=== PATIENT | male | born 1955 | race Caucasian/White ===

== ENCOUNTER 2016-04-29 13:02 | Observation (INO) | payer MEDICARE, OTHER ==
[~2016-04-29] VITALS: Ht 162.6 cm; Wt 90.6 kg
[~2016-04-29 13:02] MED LIST: ASPI-535 PO; ATOR40TA68 PO; INSU100C SC; INSU100I15 SC; ISOS60TA52 PO; LORA0.5T PO; METO-53 PO; NITR0.4T6 SL; OMEP20CA9 PO
[2016-04-29] MEDS ORDERED: ASPIRIN 325 MG TAB PO ONE (13:30)
[2016-04-29] MEDS ORDERED: NITROGLYCERIN 2% 1 GM OINT PKT TD STA (13:36)
[2016-04-29] MEDS ORDERED: morphine 4 MG/ML VIAL IV STA ×2 (13:36→15:30)
[2016-04-29] MEDS ORDERED: ASPIRIN 325 MG TAB PO STA (13:36)
[2016-04-29] MEDS ORDERED: ONDANSETRON 4 MG INJ IV STA ×2 (13:36→15:30)
[2016-04-29 13:55] LABS: BASOPHILS % 0.4 % (0.0-2.0); EOSINOPHILS # 0.2 10^3/ul (0.0-0.5); EOSINOPHILS % 2.6 % (0.0-7.0); HEMATOCRIT 43.8 % (42.0-52.0); HEMOGLOBIN 14.9 g/dl (14.0-18.0); LYMPHOCYTES # 2.1 10^3/ul (0.8-2.9); LYMPHOCYTES % 23.7 % (15.0-51.0); MEAN CORPUSCULAR HEMOGLOBIN 28.2 pg (29.0-33.0); MEAN CORPUSCULAR VOLUME 83.1 fl (82.0-101.0); MEAN PLATELET VOLUME 8.6 fl (7.4-10.4); MONOCYTE # 0.8 10^3/ul (0.3-0.9); MONOCYTES % 9.2 % (0.0-11.0); NEUTROPHIL # 5.6 10^3/ul (1.6-7.5); NEUTROPHILS % 64.1 % (39.0-77.0); PLATELET COUNT 238 10^3/UL (140-440); RED BLOOD COUNT 5.27 10^6/ul (4.70-6.10); RED CELL DISTRIBUTION WIDTH 13.5 % (11.5-14.5); UNCORRECTED WBC 8.7 10^3/ul (4.8-10.8); WHITE BLOOD COUNT 8.7 10^3/ul (4.8-10.8)
[2016-04-29 13:58] LABS: CONDITION 1
[2016-04-29 14:00] VITALS: TEMP 98.2
[2016-04-29 14:00] LABS: ALBUMIN 3.7 g/dl (3.3-4.9)
[2016-04-29 14:01] LABS: CHLORIDE 101 mmol/L (97-110); POTASSIUM 5.5 mmol/L (3.5-5.1); SODIUM 137 mmol/L (135-144)
[2016-04-29 14:03] LABS: ALBUMIN/GLOBULIN RATIO 1.02; ALKALINE PHOSPHATASE 150 IU/L (42-121); ANION GAP 20 (8-16); ASPARTATE AMINO TRANSFERASE 21 IU/L (15-46); BLOOD UREA NITROGEN 41 mg/dl (7-20); CARBON DIOXIDE 22 mmol/L (21-31); CREATININE 2.69 mg/dl (0.61-1.24); TOTAL PROTEIN 7.3 g/dl (6.1-8.1)
[2016-04-29 14:04] LABS: ALANINE AMINOTRANSFERASE 34 IU/L (13-69); CALCIUM 8.4 mg/dl (8.4-10.2); GLUCOSE 241 mg/dl (70-220)
[2016-04-29 14:13] LABS: B-TYPE NATRIURETIC PEPTIDE 354 PG/ML (0-125)
[2016-04-29] MEDS ORDERED: DYAZIDE PO (14:13)
[2016-04-29] MEDS ORDERED: BENA10TA48 PO (14:13)
[2016-04-29] MEDS ORDERED: CLON0.2T5 PO (14:14)
[2016-04-29] MEDS ORDERED: LINA5TAB PO (14:15)
[2016-04-29] MEDS ORDERED: GLIM4TAB PO (14:15)
[2016-04-29 14:16] LABS: TROPONIN-I < 0.012 ng/ml (0.00-0.12)
[2016-04-29] MEDS ORDERED: INSU300I SQ (14:16)
--- NOTE | 2016-04-29 14:20 | RADRPT ---
PROCEDURE: Chest x-ray CLINICAL INDICATION: Abdominal pain TECHNIQUE: Chest single view COMPARISON: 03/20/2014 FINDINGS: The heart is normal in size. The pulmonary vessels are normal in caliber. The lungs are clear. Th e costophrenic angles are sharp. The visualized bony thorax is unremarkable. IMPRESSION: No acute cardiopulmonary disease. Post thoracotomy changes RPTAT: HH .Shelton Ma MD, Date Time Electronically viewed and signed by .Shelton Ma MD, on 04/29/2016 14:19 .W/
[2016-04-29] MEDS ORDERED: SOD CHLORIDE 0.9% 500 ML IV STA (14:59)
--- NOTE | 2016-04-29 15:24 | ERA ---
ER Documentation Chief Complaint Date/Time DATE: 04/29/16 TIME: 15:21 Chief Complaint chest pain since last night and headache with nausea and vomiting. HPI 60-year-old male history of three-vessel cardiac disease who presents with chest pain. He describes chest pain that is substernal, pressure-like with associated nausea, single episode of vomiting. Mild, gradual onset headache. This is his anginal equivalent. 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 No fevers chills cough or pleuritic pain. ROS All systems reviewed and are negative except as per history of present illness. Medications Home Meds Active Scripts Nitroglycerin* (Nitroglycerin* SL) 0.4 Mg Tab.subl, 0.4 MG SL Q5MIN Y for CHEST PAIN, #30 BOTTLE Prov:EVELYNCEE BANDAROTHTATE Vidales 03/22/14 Reported Medications Insulin Glargine,Hum.rec.anlog (Shea Solostar) 300 Unit/1 Ml Insuln.pen, 80 UNIT SQ BID 04/29/16 Linagliptin (TRADJENTA) 5 Mg Tablet, 5 MG PO DAILY, TAB 04/29/16 Glimepiride* (Glimepiride*) 4 Mg Tablet, 4 MG PO WITH BREAKFAST DINNE, TAB 04/29/16 Clonidine Hcl* (Clonidine Hcl*) 0.2 Mg Tablet, 0.2 MG PO Q8 Y for ELEVATED BLOOD PRESSURE, TAB 04/29/16 Triamterene-HCTZ (Dyazide) 37.5 - 25 Mg Cap, 1 CAP PO DAILY, CAP 04/29/16 Benazepril Hcl* (Benazepril Hcl*) 10 Mg Tablet, 10 MG PO DAILY, #30 TAB 04/29/16 Omeprazole* (Prilosec*) 20 Mg Capsule.dr, 20 MG PO DAILY, CAP 03/20/14 Lorazepam* (Lorazepam*) 0.5 Mg Tablet, 0.5-1 MG PO QID Y for ANXIETY, TAB 03/20/14 Atorvastatin* (Atorvastatin*) 40 Mg Tablet, 40 MG PO DAILY 06/10/13 Aspirin Ec (Aspir 81) 81 Mg Tablet.dr, 81 MG PO DAILY 06/10/13 Metoprolol (Lopressor) 50 Mg Tablet, 50 MG PO BID 06/10/13 Isosorbide Mononitrate* (Imdur*) 60 Mg Tab.sr.24h, 60 MG PO DAILY 06/10/13 Discontinued Scripts Insulin Lispro (Humalog) 100 U/Ml Cartridge, 6 UNITS SC WITH MEALS for 30 Days, EA Prov:GONZALEZ PEÑA F. 03/22/14 Insulin Glargine,Hum.rec.anlog (Lantus Solostar) 100 Units/Ml Pen, 25 UNITS SC HS for 14 Days Prov:GONZALEZ PEÑA F. 03/22/14 Allergies Allergies: Coded Allergies: No Known Allergy (Unverified , 04/29/16) PMhx/Soc History of Surgery: Yes (CABG 2012, appendectomy) Anesthesia Reaction: No Hx Neurological Disorder: No Hx Respiratory Disorders: No Hx Cardiac Disorders: Yes (HTN,CAD,HLP) Hx Psychiatric Problems: No Hx Miscellaneous Medical Probl: No Hx Alcohol Use: No Hx Substance Use: No Hx Tobacco Use: No Smoking Status: Never smoker Physical Exam Vitals Vital Signs Date Time Temp Pulse Resp B/P Pulse Ox O2 Delivery O2 Flow Rate FiO2 04/29/16 13:07 98.9 74 20 133/79 98 Physical Exam General: Well developed, well nourished, no acute distress Head: Normocephalic, atraumatic. Eyes: Pupils equally reactive, EOM intact ENT: Moist mucous membranes Neck: Supple, no lymphadenopathy Respiratory: Lungs clear bilaterally, no distress Cardiovascular: RRR, no murmurs, rubs, or gallops Abdominal: Soft, non-tender, non-distended, no peritoneal signs : Deferred MSK: No edema, no unilateral swelling, 5/5 strength Neurologic: Alert and oriented, moving all extremities, normal speech, no focal weakness, no cerebellar signs Skin: No rash Psych: Normal mood Result Diagram: 04/29/16 1340 04/29/16 1340 Results 24 hrs Laboratory Tests Test 04/29/16 13:40 Alanine Aminotransferase (ALT/SGPT) 34IU/L Albumin 3.7g/dl Albumin/Globulin Ratio 1.02 Alkaline Phosphatase 150IU/L Anion Gap 20 Aspartate Amino Transf (AST/SGOT) 21IU/L B-Type Natriuretic Peptide 354PG/ML Basophils # 0.010^3/ul Basophils % 0.4% Blood Morphology Comment Blood Urea Nitrogen 41mg/dl Calcium Level 8.4mg/dl Carbon Dioxide Level 22mmol/L Chloride Level 101mmol/L Creatinine 2.69mg/dl Direct Bilirubin 0.00mg/dl Eosinophils # 0.210^3/ul Eosinophils % 2.6% Globulin 3.60g/dl Glucose Level 241mg/dl Hematocrit 43.8% Hemoglobin 14.9g/dl Indirect Bilirubin 0.0mg/dl Lipase 253U/L Lymphocytes # 2.110^3/ul Lymphocytes % 23.7% Mean Corpuscular Hemoglobin 28.2pg Mean Corpuscular Hemoglobin Concent 34.0g/dl Mean Corpuscular Volume 83.1fl Mean Platelet Volume 8.6fl Monocytes # 0.810^3/ul Monocytes % 9.2% Neutrophils # 5.610^3/ul Neutrophils % 64.1% Nucleated Red Blood Cells # 0.010^3/ul Nucleated Red Blood Cells % 0.0/100WBC Platelet Count 59438^3/UL Potassium Level 5.5mmol/L Red Blood Count 5.2710^6/ul Red Cell Distribution Width 13.5% Sodium Level 137mmol/L Total Bilirubin 0.0mg/dl Total Protein 7.3g/dl Troponin I < 0.012ng/ml White Blood Count 8.710^3/ul Current Medications Medications (Trade) Dose Ordered Sig/Omid Route PRN Reason Start Time Stop Time Status Last Admin Dose Admin Aspirin (Aspirin) 325 mg ONCE ONCE PO 04/29/16 13:30 04/29/16 13:31 DC 04/29/16 13:46 Aspirin (Aspirin) 325 mg ONCE STAT PO 04/29/16 13:36 04/29/16 13:37 DC Nitroglycerin (Nitroglycerin 2% Oint) 1 inch ONCE STAT TD 04/29/16 13:36 04/29/16 13:37 DC 04/29/16 13:45 Morphine Sulfate (morphine) 4 mg ONCE STAT IV 04/29/16 13:36 04/29/16 13:37 DC 04/29/16 13:46 Ondansetron HCl 4 mg 4 mg ONCE STAT IV 04/29/16 13:36 04/29/16 13:37 DC 04/29/16 13:45 Sodium Chloride (NS) 500 ml @ 500 mls/hr Q1H STAT IV 04/29/16 14:59 04/29/16 15:58 Ondansetron HCl (Zofran Inj) 4 mg ER BRIDGE PRN IV NAUSEA AND/OR VOMITING 04/29/16 15:30 04/30/16 15:29 Acetaminophen (Tylenol Tab) 650 mg ER BRIDGE PRN PO MILD PAIN/FEVER 04/29/16 15:30 04/30/16 15:29 Procedures/MDM EKG, MONITORS, & DIAGNOSTIC IMAGING: EKG: I reviewed and interpreted a 12-lead EKG. Rhythm: Normal sinus rhythm Ectopy: None Intervals: No abnormalities ST segments: No elevations or depressions T waves: No contiguous inversions Repeat EKG: EKG: I reviewed and interpreted a 12-lead EKG. Rhythm: Normal sinus rhythm Ectopy: None Intervals: No abnormalities ST segments: No elevations or depressions T waves: No contiguous inversions Chest x-ray: I reviewed and interpreted a 1 view of the chest Mediastinum: No enlargement Cardiac silhouette: No cardiomegaly Airspace: Clear lung godinez bilaterally without evidence of pneumothorax Bones: No evidence of fracture LAB INTERPRETATION: Negative troponin, chronic renal insufficiency, borderline hyperkalemia MEDICAL DECISION MAKING: The patient's history, physical exam and clinical presentation is concerning for possible cardiogenic etiology and acute coronary syndrome. Based on the patient's clinical exam and history and risk factors, I have a much lower clinical concern for pulmonary embolism, acute aortic dissection, pneumothorax, pneumonia, cardiac tamponade HEART Score: 5 MACE Rate: 16.6% Shared Decision Making: We had a conversation regarding risk stratification, MACE rate, and the risks, benefits, alternatives of disposition planning options. Disposition planning: Given high risk profile inpatient hospitalization appropriate ER COURSE: Aspirin, nitro, morphine provided, patient now chest pain-free. Renal function is consistent with baseline. Potassium is only minimally elevated with no EKG changes. No indication for treatment. Fluids have been provided. The patient has subjective improvement. I kept the patient and/or family informed of laboratory and diagnostic imaging results throughout the emergency room course. DISPOSITION PLAN: Telemetry admission for rule out of a possible acute coronary syndrome. CONSULTATION: Accepting care team and consultations: I discussed the current laboratory data, diagnostic imaging and emergency care provided. Admitting team: Dr. Mcdonough Admitting team indication: Insurance directed Departure Diagnosis: Primary Impression: Chronic renal insufficiency Qualified Code: N18.9 - Chronic renal insufficiency, unspecified stage Additional Impression: Chest pain Qualified Code: R07.9 - Chest pain, unspecified type Condition: Stable LORENA ALEXANDRA MD Apr 29, 2016 15:24
[2016-04-29] MEDS ORDERED: ONDANSETRON 4 MG INJ IV PRN ×2 (15:30→18:30)
[2016-04-29] MEDS ORDERED: ACETAMINOPHEN 325 MG TAB PO PRN (15:30)
[2016-04-29] MEDS ORDERED: LABETALOL HCL 20MG INJ IV ONE (18:00)
[2016-04-29 18:23] VITALS: BP 175/93; PULSE 77; RESP 20
[2016-04-29 18:27] VITALS: Ht 162.6 cm; Wt 90.6 kg
[2016-04-29] MEDS ORDERED: ZOLPIDEM 5 MG TAB PO PRN (18:30)
[2016-04-29] MEDS ORDERED: NITROGLYCERIN (SL) 0.4 MG TAB SL PRN ×2 (18:30)
[2016-04-29] MEDS ORDERED: LORAZEPAM 0.5 MG TAB PO PRN (18:30)
[2016-04-29] MEDS ORDERED: NACL 0.9% 3 ML SYG IV SCH (18:30)
[2016-04-29] MEDS: morphine 2 MG INJ IV PRN (18:48)
[2016-04-29 18:50] VITALS: PULSE 74
[2016-04-29 18:57] VITALS: BP 157/82
[2016-04-29] MEDS ORDERED: GLUCOSE GEL 15 GRAM TUBE PO PRN ×2 (19:00)
[2016-04-29] MEDS ORDERED: GLUCAGON 1 MG INJ IM PRN (19:00)
[2016-04-29] MEDS ORDERED: DEXTROSE 50% 50 ML SYRINGE IV PRN ×2 (19:00)
[2016-04-29] MEDS ORDERED: GLUCOSE GEL 15 GRAM TUBE BUCCAL PRN (19:00)
--- NOTE | 2016-04-29 19:11 | HP ---
DATE OF ADMISSION: 04/29/2016 CHIEF COMPLAINT: Chest pain. HISTORY OF PRESENT ILLNESS: The patient is a 60-year-old male with a history of CKD stage III with a baseline GFR around 30. The patient has history of diabetes, hypertension, coronary artery diseas e, status post coronary artery bypass graft as well as a recent elective cardiac catheterization in 01/2016. At that time, patient had a catheterization that showed coronary artery disease. Recommen dation was for aggressive medical management. The patient at this time presents with chest pain ebony cribed as pressure-like pain that began last night. He also has a headache with some nausea and vom iting. The patient denies any shortness of breath. The patient has no other complaints except for the pressure-like chest pain, which he still has at this time. PAST MEDICAL HISTORY: As pre HPI. PAST SURGICAL HISTORY: CABG. HOME MEDICATIONS: 1. Nitroglycerin. 2. Tradjenta. 3. Glimepiride. 4. Clonidine. 5. Dyazide. 6. Benazepril. 7. Omeprazole. 8. Lorazepam. 9. Atorvastatin. 10. Aspirin. 11. Metoprolol. 12. Imdur. FAMILY HISTORY: Significant for cardiac disease in the family. SOCIAL HISTORY: No further smoking, history of smoking. Denies alcohol abuse. Denies drug abuse. REVIEW OF SYSTEMS: A 12-point review of systems negative except for that discussed in HPI. PHYSICAL EXAMINATION: VITAL SIGNS: Temperature is 98.2, pulse ____, respiratory rate 20, blood pressure is 178/100, satur ation 100% on room air. GENERAL: Mild distress. Alert and oriented. HEENT: Normocephalic, atraumatic. LUNGS: Clear to auscultation. CARDIOVASCULAR: Regular rate and rhythm. ABDOMEN: Nondistended, nontender, soft. EXTREMITIES: No clubbing, cyanosis, or edema. LABORATORIES: CBC within normal limits. Chemistry: Sodium is 137, potassium is 5.5, creatinine is 2.69, glucose 241. Troponin is negative. DIAGNOSTICS: Chest x-ray shows no acute disease. EKG shows no signs of ischemia. ASSESSMENT AND PLAN: 1. Chest pain. The patient does have pressure-like pain. We will rule out acute coronary syndrome . The patient did have a recent left heart catheterization approximately [address] Crescencio miller. We will reconsult Dr. Huber. We will continue cardiac meds including nitroglycerin. 2. Chronic kidney disease. Will consult Dr. Solis, nephrology. 3. Diabetes. Continue subcutaneous insulin. Will check A1c. 4. Hypertensive urgency. Continue blood pressure medications with labetalol p.r.n. 5. History of coronary artery disease, status post coronary artery bypass graft. Once again, ante nue cardiac medications. 6. Prophylaxis. Heparin. Dictated By: ALEX CASTRO MD BS/NTS Conf#: [id number] DID#: [id number]
[2016-04-29 20:14] VITALS: PULSE 80
[2016-04-29] MEDS ORDERED: INSULIN GLARGINE HUM REC ANLOG 80 UNIT SQ SCH (21:00)
[2016-04-29] MEDS: INSULIN ASPART [NOVOLOG] 3 ML PEN SC SCH (21:00)
[2016-04-29] MEDS ORDERED: [UNRECOGNIZED DRUG - OTHER] SQ SCH (21:00)
[2016-04-29] MEDS ORDERED: INSULIN GLARGINE [LANtus] 3 ML PEN SC SCH (21:00)
[2016-04-29] MEDS: METOPROLOL 50 MG TAB PO SCH (22:10)
[2016-04-29] MEDS: HEPARIN 5,000 UNIT/0.5 ML SYG SC SCH (22:11)
[2016-04-30] VITALS (14 sets, daily range): BP systolic 152–193; BP diastolic 70–93; PULSE 73–88; RESP 18–20
[2016-04-30] MEDS: ACCUCHECK XX SCH (00:27)
[2016-04-30] MEDS: morphine 4 MG/ML VIAL IV PRN (01:28)
[2016-04-30] MEDS ORDERED: ACCUCHECK XX SCH (02:00)
[2016-04-30] MEDS: LABETALOL HCL 20MG INJ IV PRN ×3 (02:16→11:20)
[2016-04-30] MEDS: PANTOPRAZOLE (EC) 40 MG TAB PO SCH (06:30)
[2016-04-30] MEDS ORDERED: GLIMEPIRIDE 4 MG TAB PO SCH (08:00)
[2016-04-30 08:28] LABS: BASOPHILS % 0.5 % (0.0-2.0); EOSINOPHILS # 0.1 10^3/ul (0.0-0.5); HEMATOCRIT 42.5 % (42.0-52.0); HEMOGLOBIN 14.2 g/dl (14.0-18.0); LYMPHOCYTES # 1.4 10^3/ul (0.8-2.9); LYMPHOCYTES % 20.3 % (15.0-51.0); MEAN CORPUSCULAR HEMOGLOBIN 27.9 pg (29.0-33.0); MEAN CORPUSCULAR HGB CONC 33.5 g/dl (32.0-37.0); MEAN CORPUSCULAR VOLUME 83.4 fl (82.0-101.0); MEAN PLATELET VOLUME 8.5 fl (7.4-10.4); MONOCYTE # 0.5 10^3/ul (0.3-0.9); MONOCYTES % 7.3 % (0.0-11.0); NEUTROPHIL # 4.9 10^3/ul (1.6-7.5); NEUTROPHILS % 70.9 % (39.0-77.0); PLATELET COUNT 206 10^3/UL (140-440); RED BLOOD COUNT 5.09 10^6/ul (4.70-6.10); RED CELL DISTRIBUTION WIDTH 13.7 % (11.5-14.5); UNCORRECTED WBC 6.9 10^3/ul (4.8-10.8); WHITE BLOOD COUNT 6.9 10^3/ul (4.8-10.8)
[2016-04-30 08:32] LABS: CONDITION 1
[2016-04-30 08:48] LABS: POTASSIUM 5.2 mmol/L (3.5-5.1)
[2016-04-30 08:50] LABS: CREATININE 2.25 mg/dl (0.61-1.24)
[2016-04-30 08:51] LABS: PHOSPHORUS 4.8 mg/dl (2.5-4.9)
[2016-04-30 08:52] LABS: CALCIUM 8.4 mg/dl (8.4-10.2); CHOL/HDL RATIO 4.8 RATIO
[2016-04-30] MEDS: ATORVASTATIN 40 MG TAB PO SCH (08:52)
[2016-04-30] MEDS: METOPROLOL 50 MG TAB PO SCH (08:52)
[2016-04-30] MEDS: ASPIRIN (EC) 81 MG TAB PO SCH (08:52)
[2016-04-30] MEDS: LINAGLIPTIN 5 MG TABLET PO SCH (08:53)
[2016-04-30] MEDS: INSULIN ASPART [NOVOLOG] 3 ML PEN SC SCH ×4 (08:56→21:01)
[2016-04-30] MEDS: HEPARIN 5,000 UNIT/0.5 ML SYG SC SCH ×2 (08:57→20:52)
[2016-04-30] MEDS ORDERED: INFLUENZA VIRUS VACCINE 0.5 ML (DISPENSING) IM* ONE (09:00)
[2016-04-30] MEDS ORDERED: TRIAMTERENE/HCTZ (37.5-25) CAP PO SCH (09:00)
[2016-04-30] MEDS ORDERED: BENAZEPRIL 10 MG TAB PO SCH (09:00)
[2016-04-30] MEDS ORDERED: ISOSORBIDE MONONITRATE(SR)60 MG TAB PO SCH (09:00)
[2016-04-30] MEDS: INSULIN GLARGINE [LANtus] 3 ML PEN SC SCH ×2 (10:06→20:57)
--- NOTE | 2016-04-30 10:18 | CONS ---
DATE OF ADMISSION: 04/29/2016 DATE OF CONSULTATION: 04/30/2016 TYPE OF CONSULTATION: Nephrology REQUESTING PHYSICIAN: Dr. Mcdonough. REASON FOR CONSULTATION: Chronic kidney disease, acute kidney injury. HISTORY OF PRESENT ILLNESS: This is a 60-year-old male with a past medical history of coronary emerson ry disease, history of 3-vessel CABG in 2012, history of hypertension, diabetes, history of CKD stag e IIIB with a baseline creatinine around 2.0 mg/dL, who presents to [facility] wit h complaints of chest pain. The patient has had previous admissions to [facility] with chest pain, most recently in January he presented with chest pain and underwent a cardiac cat heterization by Dr. Huber. The patient since that time stated that he has been stable. He has had intermittent episodes of chest pain. The patient describes recently over the last couple days, mor e intense substernal chest pain associated with vomiting, headaches and radiation of pain down his a rm. As a result, he came to the emergency room for evaluation. The patient in the ER was given nit roglycerin with clinical improvement in chest pain. He was admitted to telemetry for continued eval uation. Upon my evaluation of patient at this time, the patient states the chest pain is improving. He horace es any recent episodes of hemoptysis, hematemesis or hematochezia. Denies any rashes. Denies any l ower extremity edema. The patient states he has been compliant with his medications. No other even ts noted. PAST MEDICAL HISTORY: As stated above, history of coronary artery disease, history of hypertension, history of dyslipidemia, history of chronic kidney disease stage IIIB. PAST SURGICAL HISTORY: Status post CABG, status post cardiac catheterization. FAMILY HISTORY: No family history of kidney disease or heart disease. SOCIAL HISTORY: Does not drink, smoke or do drugs. ALLERGIES: NO KNOWN DRUG ALLERGIES. MEDICATIONS: Patient medications have been reviewed. REVIEW OF SYSTEMS: A 14-point review of systems was conducted. Pertinent positives stated in HPI, otherwise negative. PHYSICAL EXAMINATION: VITAL SIGNS: Blood pressure is currently 166/88, respiration is 20, pulse 82, temperature 98.2. HEENT: Head is normocephalic. NECK: Supple. HEART: Regular rate. LUNGS: Show diminished breath sounds at base. ABDOMEN: Soft, nontender to palpation. No rebound or guarding. EXTREMITIES: Negative for clubbing, cyanosis, no edema. DERMATOLOGIC: No rashes. MUSCULOSKELETAL: No joint effusions. NEUROLOGIC: No focal deficits. LABORATORY DATA: Shows sodium 138, potassium 5.2, chloride 104, BUN 30, creatinine 2.25. White cou nt 6.9, hemoglobin 14.2, hematocrit 42.5, platelet count 206. IMAGING STUDIES: The patient's chest x-ray reviewed. No acute findings. ASSESSMENT AND PLAN: This is a 60-year-old male who presents with: 1. Nonoliguric acute kidney injury on top of chronic kidney disease with previous baseline creatini ne around 2 mg/dL. Etiology of current acute kidney injury is likely due to hemodynamics, SATISH inhib itor effect. The patient's renal function has improved with discontinuation of SATISH inhibitor and IV hydration. Plan at this point is to check a UA with microanalysis to rule out any other etiologies . We will again quantify the patient's proteinuria. Will check renal ultrasound to evaluate the pa tient's renal parenchyma and to rule out obstruction, although suspicion is low. Would otherwise co ntinue current treatment plan, supportive care, renally dose all meds, avoid nephrotoxins. 2. Hyperkalemia. Etiology is likely secondary to underlying chronic kidney disease, acute kidney i njury and SATISH inhibitor effect. SATISH inhibitor was discontinued. The patient will be placed on a lo w potassium diet. Will continue to monitor. 3. Mineral bone disorder. We will monitor calcium and phosphorus levels. No need for phosphate bi nders at this time. 4. Hypertensive urgency. 5. We will continue current blood pressure regimen. May consider adding calcium channel phillip if needed, holding SATISH inhibitor at this time in the setting of hyperkalemia. 6. Chest pain. The patient had anginal type chest pain. Being ruled out for non-ST elevated myoca rdial infarction. Will continue to monitor serial troponins. Continue current medical management. Will follow up with food concession manager, Dr. Huber. The patient may require cardiac catheterization. 7. History of coronary artery disease, status post coronary artery bypass grafting. Continue medic al management. 8. Diabetes. Continue Accu-Cheks and insulin sliding scale. Continue Lantus. 9. Anxiety disorder. Continue Ativan. Thank you Dr. Mcdonough for this interesting consult. I will be a pleasure to follow the patient with you throughout the hospital course. Dictated By: JEWELL KILGORE/DAVID Conf#: [id number] DID#: [id number]
[2016-04-30] MEDS: morphine 2 MG INJ IV PRN (11:52)
--- NOTE | 2016-04-30 15:19 | PN ---
Date/Time of Note Date/Time of Note DATE: 04/30/16 TIME: 15:13 Assessment/Plan VTE Prophylaxis VTE Prophylaxis Intervention: heparin Lines/Catheters IV [facility]ter [facility]from [facility] Saline Lock Assessment/Plan Chief Complaint/Hosp Course 1. Chest pain -Trops neg x 3 -FU on Cards recs -continue cardiac meds including nitroglycerin 2. Chronic kidney disease -Renal consult appreciated 3. Diabetes-A1C at 9.8 -Continue subcutaneous insulin 4. Hypertensive urgency- Continue blood pressure medications with labetalol p.r.n. 5. History of coronary artery disease, status post coronary artery bypass graft -continue cardiac medications 6. Prophylaxis-Heparin Problems: Subjective 24 Hr Interval Summary Constitutional: no complaints Exam/Review of Systems Vital Signs Vitals Vital Signs Date Time Temp Pulse Resp B/P Pulse Ox O2 Delivery O2 Flow Rate FiO2 04/30/16 13:33 152/70 04/30/16 12:31 98.4 88 19 99 Nasal Cannula 2.0 Intake and Output 04/29/16 04/29/16 04/30/16 15:00 23:00 07:00 Intake Total 0 ml 200 ml Output Total 900 ml Balance 0 ml -700 ml Exam Constitutional: alert, oriented Respiratory: clear to auscultation Cardiovascular: regular rate and rhythm Gastrointestinal: soft, No distended Musculoskeletal: nl extremities to inspection Results Result Diagram: 04/30/16 0658 04/30/16 0658 Results 24 hrs Laboratory Tests Test 04/29/16 18:49 04/29/16 20:31 04/30/16 00:49 04/30/16 03:18 Bedside Glucose 166 117 161 Troponin I 0.016 Test 04/30/16 06:58 04/30/16 07:31 04/30/16 11:26 Anion Gap 18 H Basophils # 0.0 Basophils % 0.5 Blood Morphology Comment Blood Urea Nitrogen 38 H Calcium Level 8.4 Carbon Dioxide Level 21 Chloride Level 104 Cholesterol Level 132 Cholesterol/HDL Ratio 4.8 Creatinine 2.25 H Eosinophils # 0.1 Eosinophils % 1.0 Glucose Level 150 HDL Cholesterol 27 L Hematocrit 42.5 Hemoglobin 14.2 Hemoglobin A1c 9.8 H LDL Cholesterol, Calculated 63 Lymphocytes # 1.4 Lymphocytes % 20.3 Magnesium Level 2.0 Mean Corpuscular Hemoglobin 27.9 L Mean Corpuscular Hemoglobin Concent 33.5 Mean Corpuscular Volume 83.4 Mean Platelet Volume 8.5 Monocytes # 0.5 Monocytes % 7.3 Neutrophils # 4.9 Neutrophils % 70.9 Nucleated Red Blood Cells # 0.0 Nucleated Red Blood Cells % 0.0 Phosphorus Level 4.8 Platelet Count 206 Potassium Level 5.2 H Red Blood Count 5.09 Red Cell Distribution Width 13.7 Sodium Level 138 Triglycerides Level 210 H Troponin I < 0.012 White Blood Count 6.9 # Bedside Glucose 156 276 H Medications Medications Current Medications Ondansetron HCl (Zofran Inj) 4 mg Q6H PRN IV NAUSEA AND/OR VOMITING; Start at 18:30 Acetaminophen (Tylenol Tab) 650 mg Q6H PRN PO PAIN LEVEL 1-3 OR FEVER; Start at 18:30 Zolpidem Tartrate (Ambien) 5 mg QHS PRN PO SLEEP; Start 04/29/16 at 18:30 Heparin Sodium (Porcine) (Heparin (5000 Units/0.5 ml)) 5,000 unit Q12 SC Last administered on 04/30/16 08:57; Admin Dose 5,000 UNIT; Start 04/29/16 at 21:00 Nitroglycerin (Nitroglycerin (Sl Tab) 0.4 Mg) 1 tab Q5M PRN SL CHEST PAIN; Start 04/29/16 at 18:30 Morphine Sulfate (morphine) 2 mg Q2H PRN IV PAIN LEVEL 4-6 Last administered on 04/30/16 11:52; Admin Dose 2 MG; Start 04/29/16 at 18:30 Morphine Sulfate (morphine) 4 mg Q2H PRN IV PAIN LEVEL 7-10 Last administered on 04/30/16 01:28; Admin Dose 4 MG; Start 04/29/16 at 18:30 Aspirin (Halfprin) 81 mg DAILY PO Last administered on 04/30/16 08:52; Admin Dose 81 MG; Start 04/30/16 at 09:00 Atorvastatin Calcium (Lipitor) 40 mg DAILY PO Last administered on 04/30/16 08 :52; Admin Dose 40 MG; Start 04/30/16 at 09:00 Isosorbide Mononitrate (Imdur) 60 mg DAILY PO Last administered on 04/30/16 08 :53; Admin Dose 60 MG; Start 04/30/16 at 09:00 Linagliptin (Tradjenta) 5 mg DAILY PO Last administered on 04/30/16 08:53; Admin Dose 5 MG; Start 04/30/16 at 09:00 Lorazepam (Ativan) 0.5 mg Q6 PRN PO ANXIETY; Start 04/29/16 at 18:30 Metoprolol Tartrate (Lopressor) 50 mg BID PO Last administered on 04/30/16 08: 52; Admin Dose 50 MG; Start 04/29/16 at 21:00 Triamterene/HCTZ (Dyazide) 1 cap DAILY PO Last administered on 04/30/16 08:53 ; Admin Dose 1 CAP; Start 04/30/16 at 09:00 Pantoprazole (Protonix Tab) 40 mg DAILY@06 PO Last administered on 04/30/16 06 :30; Admin Dose 40 MG; Start 04/30/16 at 06:00 Labetalol HCl (Labetalol) 20 mg Q2 PRN IV SBP>170 Last administered on 11:20; Admin Dose 20 MG; Start 04/29/16 at 18:30 Diagnostic Test (Pha) (Accucheck) 1 ea 02 XX Last administered on 04/30/16 00: 27; Admin Dose 1 EA; Start 04/30/16 at 02:00 Miscellaneous Information 1 ea NOTE XX ; Start 04/29/16 at 19:00 Glucose (Glutose) 15 gm Q15M PRN PO DECREASED GLUCOSE; Start 04/29/16 at 19:00 Glucose (Glutose) 22.5 gm Q15M PRN PO DECREASED GLUCOSE; Start 04/29/16 at 19: 00 Dextrose (D50w Syringe) 25 ml Q15M PRN IV DECREASED GLUCOSE; Start 04/29/16 at 19:00 Dextrose (D50w Syringe) 50 ml Q15M PRN IV DECREASED GLUCOSE; Start 04/29/16 at 19:00 Glucagon (Glucagen) 1 mg Q15M PRN IM DECREASED GLUCOSE; Start 04/29/16 at 19:00 Glucose (Glutose) 15 gm Q15M PRN BUCCAL DECREASED GLUCOSE; Start 04/29/16 at 19 :00 Insulin Glargine (Lantus) 15 unit BID SC Last administered on 04/30/16 10:06; Admin Dose 15 UNIT; Start 04/30/16 at 09:00 ALEX CASTRO Apr 30, 2016 15:19
--- NOTE | 2016-04-30 18:14 | CONS ---
Date/Time of Note Date/Time of Note DATE: 04/30/16 TIME: 18:08 Assessment/Plan Assessment/Plan Additional Assessment/Plan Chest, neck, arm pain and headache CAD with history of coronary artery bypass grafting Diabetes, uncontrolled Hypertension, uncontrolled Acute on chronic kidney disease -Patient's serial cardiac enzymes have remained unremarkable. He did undergo an outpatient coronary angiogram in January 2016 which demonstrated a patent grafts with no other significant obstructive disease. His symptoms currently do not appear cardiac in origin. He is complaining of headache, neck pain and arm pain which is worse with movements. Furthermore, his blood pressure has not been well controlled as well as his diabetes. I will stop his diuretic therapy, SATISH inhibitor has been stopped, change Lopressor to Coreg, change his long-acting nitroglycerin to twice daily dosing, Norvasc as needed. There is a possibility that his long-acting nitroglycerin can be contributing to his headache. If headache does not improve with proper blood pressure control, would consider stopping nitroglycerin. Would request diabetes education. Patient undergoing renal evaluation as well. Consultation Date/Type/Reason Admit Date/Time Apr 29, 2016 at 15:17 Type of Consultation: cv Reason for Consultation Chest pain Hx of Present Illness This is a 60-year-old male known to me as an outpatient with a history of coronary artery disease with CABG, diabetes, hypertension, renal disease who presents with multiple complaints. Patient began with headache approximately 5- 6 days ago. Headache was aching like in the back of the head as well as the neck radiating down to the arm and the chest. Patient also with nausea as well. He does admit his blood sugars have been uncontrolled ranging from high 200s-400s at times. He developed chest discomfort intermittently which is worse with left arm movements, raising his left arm, and pushing on his chest. He denies exertional chest pain or shortness of breath. 12 point review of systems was performed with all pertinent positives and negatives mentioned above and all else is negative Constitutional: no complaints Past Medical History Medical History: coronary artery disease, diabetes, high cholesterol, hypertension, renal disease Past Surgical History Past Surgical Hx: coronary bypass surgery Family History Significant Family History: no pertinent family hx Social History Smoking Status: Former smoker Exam/Review of Systems Vital Signs Vitals Vital Signs Date Time Temp Pulse Resp B/P Pulse Ox O2 Delivery O2 Flow Rate FiO2 04/30/16 16:56 82 04/30/16 15:00 98.1 20 166/84 98 04/30/16 12:31 Nasal Cannula 2.0 Intake and Output 04/29/16 04/29/16 04/30/16 15:00 23:00 07:00 Intake Total 0 ml 200 ml Output Total 900 ml Balance 0 ml -700 ml Exam No apparent distress Constitutional: alert, oriented Head: normocephalic Neck: supple Respiratory: clear to auscultation, normal air movement Cardiovascular: other (S1-S2 heard, no murmurs appreciated), regular rate and rhythm Gastrointestinal: bowel sounds, non-tender, other (No guarding), soft Musculoskeletal: other (Pain with palpation of left shoulder and with range of motion, pain with chest wall palpation) Results Result Diagram: 04/30/1658 04/30/16 0658 Results 24 hrs Laboratory Tests Test 04/29/16 18:49 04/29/16 20:31 04/30/16 00:49 04/30/16 03:18 Bedside Glucose 166 117 161 Troponin I 0.016 Test 04/30/16 06:58 04/30/16 07:31 04/30/16 11:26 04/30/16 17:32 Anion Gap 18 H Basophils # 0.0 Basophils % 0.5 Blood Morphology Comment Blood Urea Nitrogen 38 H Calcium Level 8.4 Carbon Dioxide Level 21 Chloride Level 104 Cholesterol Level 132 Cholesterol/HDL Ratio 4.8 Creatinine 2.25 H Eosinophils # 0.1 Eosinophils % 1.0 Glucose Level 150 HDL Cholesterol 27 L Hematocrit 42.5 Hemoglobin 14.2 Hemoglobin A1c 9.8 H LDL Cholesterol, Calculated 63 Lymphocytes # 1.4 Lymphocytes % 20.3 Magnesium Level 2.0 Mean Corpuscular Hemoglobin 27.9 L Mean Corpuscular Hemoglobin Concent 33.5 Mean Corpuscular Volume 83.4 Mean Platelet Volume 8.5 Monocytes # 0.5 Monocytes % 7.3 Neutrophils # 4.9 Neutrophils % 70.9 Nucleated Red Blood Cells # 0.0 Nucleated Red Blood Cells % 0.0 Phosphorus Level 4.8 Platelet Count 206 Potassium Level 5.2 H Red Blood Count 5.09 Red Cell Distribution Width 13.7 Sodium Level 138 Triglycerides Level 210 H Troponin I < 0.012 White Blood Count 6.9 # Bedside Glucose 156 276 H 143 Medications Medications Current Medications Ondansetron HCl (Zofran Inj) 4 mg Q6H PRN IV NAUSEA AND/OR VOMITING; Start at 18:30 Acetaminophen (Tylenol Tab) 650 mg Q6H PRN PO PAIN LEVEL 1-3 OR FEVER; Start at 18:30 Zolpidem Tartrate (Ambien) 5 mg QHS PRN PO SLEEP; Start 04/29/16 at 18:30 Heparin Sodium (Porcine) (Heparin (5000 Units/0.5 ml)) 5,000 unit Q12 SC Last administered on 04/30/16 08:57; Admin Dose 5,000 UNIT; Start 04/29/16 at 21:00 Nitroglycerin (Nitroglycerin (Sl Tab) 0.4 Mg) 1 tab Q5M PRN SL CHEST PAIN; Start 04/29/16 at 18:30 Morphine Sulfate (morphine) 2 mg Q2H PRN IV PAIN LEVEL 4-6 Last administered on 04/30/16 11:52; Admin Dose 2 MG; Start 04/29/16 at 18:30 Morphine Sulfate (morphine) 4 mg Q2H PRN IV PAIN LEVEL 7-10 Last administered on 04/30/16 01:28; Admin Dose 4 MG; Start 04/29/16 at 18:30 Aspirin (Halfprin) 81 mg DAILY PO Last administered on 04/30/16 08:52; Admin Dose 81 MG; Start 04/30/16 at 09:00 Atorvastatin Calcium (Lipitor) 40 mg DAILY PO Last administered on 04/30/16 08 :52; Admin Dose 40 MG; Start 04/30/16 at 09:00 Linagliptin (Tradjenta) 5 mg DAILY PO Last administered on 04/30/16 08:53; Admin Dose 5 MG; Start 04/30/16 at 09:00 Lorazepam (Ativan) 0.5 mg Q6 PRN PO ANXIETY Last administered on 04/30/16 17: 37; Admin Dose 0.5 MG; Start 04/29/16 at 18:30 Metoprolol Tartrate (Lopressor) 50 mg BID PO Last administered on 04/30/16 08: 52; Admin Dose 50 MG; Start 04/29/16 at 21:00 Triamterene/HCTZ (Dyazide) 1 cap DAILY PO Last administered on 2/16/17at 08:53 ; Admin Dose 1 CAP; Start 04/30/16 at 09:00 Pantoprazole (Protonix Tab) 40 mg DAILY@06 PO Last administered on 04/30/16 06 :30; Admin Dose 40 MG; Start 04/30/16 at 06:00 Labetalol HCl (Labetalol) 20 mg Q2 PRN IV SBP>170 Last administered on 11:20; Admin Dose 20 MG; Start 04/29/16 at 18:30 Diagnostic Test (Pha) (Accucheck) 1 ea 02 XX Last administered on 04/30/16 00: 27; Admin Dose 1 EA; Start 04/30/16 at 02:00 Miscellaneous Information 1 ea NOTE XX ; Start 04/29/16 at 19:00 Glucose (Glutose) 15 gm Q15M PRN PO DECREASED GLUCOSE; Start 04/29/16 at 19:00 Glucose (Glutose) 22.5 gm Q15M PRN PO DECREASED GLUCOSE; Start 04/29/16 at 19: 00 Dextrose (D50w Syringe) 25 ml Q15M PRN IV DECREASED GLUCOSE; Start 04/29/16 at 19:00 Dextrose (D50w Syringe) 50 ml Q15M PRN IV DECREASED GLUCOSE; Start 04/29/16 at 19:00 Glucagon (Glucagen) 1 mg Q15M PRN IM DECREASED GLUCOSE; Start 04/29/16 at 19:00 Glucose (Glutose) 15 gm Q15M PRN BUCCAL DECREASED GLUCOSE; Start 04/29/16 at 19 :00 Insulin Glargine (Lantus) 15 unit BID SC Last administered on 04/30/16 10:06; Admin Dose 15 UNIT; Start 04/30/16 at 09:00 Procedures Procedures ECG demonstrates sinus rhythm at 67 bpm, nonspecific STT wave abnormalities Alex Huber DO Apr 30, 2016 18:14
--- NOTE | 2016-04-30 18:21 | RADRPT ---
PROCEDURE: Renal US. CLINICAL INDICATION: Acute kidney injury. TECHNIQUE: Multiple sonographic images of the kidneys and urinary bladder were obtained. The imag es were reviewed on a PACS workstation. COMPARISON: No prior studies are available for comparison. FINDINGS: The right kidney measures 10.4 cm. The left kidney measures 11.4 cm. There is no renal mass. There is no hydronephrosis. There is no renal calculus. Renal parenchymal thickness and echogenicity is normal bilaterally. The perirenal regions are normal with no fluid collection or mass. The urinary bladder is unremarkable. IMPRESSION: 1. Unremarkable renal ultrasound. 2. No hydronephrosis. RPTAT: QQ .Manohar Smith MD, MD Date Time Electronically viewed and signed by .Manohar Smith MD, on 04/30/2016 18:21 .R/
[2016-04-30] MEDS ORDERED: AMLODIPINE 5 MG TAB PO PRN (18:30)
[2016-04-30] MEDS: ISOSORBIDE MONONITRATE(SR)60 MG TAB PO SCH (20:51)
[2016-04-30 22:56] LABS: ADD UMIC YES; URINE BILIRUBIN (Dip) NEGATIVE (NEGATIVE); URINE BLOOD (Dip) 1+ (NEGATIVE); URINE COLOR LT. YELLOW (YELLOW); URINE KETONES (Dip) NEGATIVE (NEGATIVE); URINE LEUKOCYTE ESTERASE (Dip) NEGATIVE (NEGATIVE); URINE NITRITE (Dip) NEGATIVE (NEGATIVE); URINE TOTAL PROTEIN (Dip) 2+ (NEGATIVE); URINE UROBILINOGEN (Dip) 0.2 E.U./dL (0.1-1.0)
[2016-05-01] VITALS (13 sets, daily range): BP systolic 156–183; BP diastolic 85–93; PULSE 79–86; RESP 16–20
[2016-05-01] MEDS: LABETALOL HCL 20MG INJ IV PRN ×4 (01:07→23:41)
[2016-05-01] MEDS: ACCUCHECK XX SCH (02:11)
[2016-05-01] MEDS: PANTOPRAZOLE (EC) 40 MG TAB PO SCH (06:01)
[2016-05-01 08:25] LABS: POTASSIUM 5.1 mmol/L (3.5-5.1)
[2016-05-01 08:28] LABS: CREATININE 2.42 mg/dl (0.61-1.24)
[2016-05-01 08:29] LABS: CALCIUM 8.3 mg/dl (8.4-10.2)
[2016-05-01] MEDS: LINAGLIPTIN 5 MG TABLET PO SCH (08:45)
[2016-05-01] MEDS: ASPIRIN (EC) 81 MG TAB PO SCH (08:47)
[2016-05-01] MEDS: ATORVASTATIN 40 MG TAB PO SCH (08:47)
[2016-05-01] MEDS: ISOSORBIDE MONONITRATE(SR)60 MG TAB PO SCH (08:47)
[2016-05-01] MEDS: HEPARIN 5,000 UNIT/0.5 ML SYG SC SCH ×2 (08:59→21:14)
[2016-05-01] MEDS: INSULIN GLARGINE [LANtus] 3 ML PEN SC SCH ×2 (09:00→21:16)
[2016-05-01] MEDS: INSULIN ASPART [NOVOLOG] 3 ML PEN SC SCH ×4 (09:00→21:17)
[2016-05-01] MEDS: ACETAMINOPHEN 325 MG TAB PO PRN ×2 (09:20→15:12)
--- NOTE | 2016-05-01 09:49 | PN ---
DATE: SUBJECTIVE: The patient is stable, no acute events overnight. The patient continues to have pain, although it is improving. No other events noted. OBJECTIVE: VITAL SIGNS: Blood pressures is 183/88, respirations 20, pulse 86, temperature 98.5. HEENT: Head is normocephalic. NECK: Supple. HEART: Regular rate. LUNGS: Show diminished breath sounds at the base. ABDOMEN: Soft, nontender to palpation without rebound or guarding. EXTREMITIES: Negative for clubbing, cyanosis, no edema. DERMATOLOGIC: No rashes. MUSCULOSKELETAL: No joint effusions. NEUROLOGIC: No change in exam. MEDICATIONS: The patient's medications have been reviewed. LABORATORY DATA: Shows sodium 139, potassium 4.1, chloride 104, BUN 42, creatinine 2.42. ASSESSMENT AND PLAN: 1. Nonoliguric acute kidney injury on top of chronic kidney disease with previous baseline creatini ne around 2 mg/dL. Etiology of acute kidney injury is secondary to hemodynamics. The patient's anyi al function is fluctuating, but overall improved from admission. At this point, would continue curr ent treatment plan. Continue supportive care, renally dose all meds, avoid nephrotoxins. Would con home weatherizing worker reintroducing SATISH inhibitor if patient's renal functions stay stable. The patient's renal ult rasound was reviewed. There is no hydronephrosis, otherwise unremarkable. The patient's urinalysis shows no active sediment. 3. Hyperkalemia, likely secondary to chronic kidney disease, acute kidney injury, SATISH inhibitor. T he patient's potassium levels have normalized. Continue low-potassium diet. 4. Mineral bone disorder. Continue to monitor calcium, phosphorus levels. No need for phosphate b yanet. 5. Hypertension urgency. The patient's blood pressure medications were adjusted, currently on calc ium channel phillip. Will continue. Consider adding hydralazine. If renal function remains stable, we will consider reintroduction of SATISH inhibitor. 6. Chest pain. Etiology is possibly noncardiac. Cardiology has evaluated the patient. At this poi nt continue current medical management. Follow up with business reporter, Dr. Huber. Continue pain cont rol. 7. Coronary artery disease status post coronary artery bypass graft. Continue medical management. 8. Diabetes. Continue current insulin regimen. 9. Anxiety disorder. Continue Ativan. Dictated By: JEWELL CHENEY DO NR/NTS Conf#: [id number] [facility]#: [id number]
[2016-05-01] MEDS: morphine 2 MG INJ IV PRN (12:04)
--- NOTE | 2016-05-01 14:47 | CONS ---
Date/Time of Note Date/Time of Note DATE: 05/01/16 TIME: 14:46 Assessment/Plan Assessment/Plan Additional Assessment/Plan Chest, neck, arm pain and headache CAD with history of coronary artery bypass grafting with patent grafts on cardiac cath January 2016 Diabetes, uncontrolled Hypertension, uncontrolled Acute on chronic kidney disease -Patient still with elevated blood pressure and complaining of headache. Long- acting nitroglycerin could be possible etiology. I will stop the medication and change Norvasc to 5 mg p.o. twice daily. Coreg dosing has been increased. Consultation Date/Type/Reason Admit Date/Time Apr 29, 2016 at 15:17 Initial Consult Date Type of Consultation: cv 24 HR Interval Summary Free Text/Dictation Denies chest pain, shortness of breath, still with headache Exam/Review of Systems Vital Signs Vitals Vital Signs Date Time Temp Pulse Resp B/P Pulse Ox O2 Delivery O2 Flow Rate FiO2 05/01/16 12:39 83 05/01/16 11:00 98.7 19 174/90 95 05/01/16 08:30 Nasal Cannula 2.0 Intake and Output 04/30/16 04/30/16 05/01/16 15:00 23:00 07:00 Intake Total 640 ml 240 ml Balance 640 ml 240 ml Exam Constitutional: alert, oriented Head: normocephalic Neck: supple Respiratory: other (Coarse breath sounds bilaterally, no wheezing) Cardiovascular: other (S1-S2 heard), regular rate and rhythm Gastrointestinal: bowel sounds, non-tender, soft Extremities: other (No edema) Results Result Diagram: 04/30/16 0658 05/01/16 0712 Results 24 hrs Laboratory Tests Test 04/30/16 17:32 04/30/16 20:47 04/30/16 22:35 04/30/16 22:58 Bedside Glucose 143 238 H Urine Bilirubin NEGATIVE Urine Clarity CLEAR Urine Color LT. YELLOW Urine Glucose 0.1% H Urine Hemoglobin 1+ H Urine Ketones NEGATIVE Urine Leukocyte Esterase NEGATIVE Urine Microscopic RBC 2-5 Urine Microscopic WBC NONE SEEN Urine Nitrite NEGATIVE Urine Specific [place] 1.020 Urine Total Protein 2+ H Urine Urobilinogen 0.2 E.U./dL Urine pH 6.0 Urine Random Creatinine 81.35 Urine Random Sodium 104 H Test 05/01/16 02:05 05/01/16 07:12 05/01/16 08:42 05/01/16 11:50 Bedside Glucose 89 175 230 H Anion Gap 18 H Blood Urea Nitrogen 42 H Calcium Level 8.3 L Carbon Dioxide Level 22 Chloride Level 104 Creatinine 2.42 H Glucose Level 210 Potassium Level 5.1 Sodium Level 139 Medications Medications Current Medications Ondansetron HCl (Zofran Inj) 4 mg Q6H PRN IV NAUSEA AND/OR VOMITING; Start at 18:30 Acetaminophen (Tylenol Tab) 650 mg Q6H PRN PO PAIN LEVEL 1-3 OR FEVER Last administered on 05/01/16 09:20; Admin Dose 650 MG; Start 04/29/16 at 18:30 Zolpidem Tartrate (Ambien) 5 mg QHS PRN PO SLEEP; Start 04/29/16 at 18:30 Heparin Sodium (Porcine) (Heparin (5000 Units/0.5 ml)) 5,000 unit Q12 SC Last administered on 05/01/16 08:59; Admin Dose 5,000 UNIT; Start 04/29/16 at 21:00 Nitroglycerin (Nitroglycerin (Sl Tab) 0.4 Mg) 1 tab Q5M PRN SL CHEST PAIN; Start 04/29/16 at 18:30 Morphine Sulfate (morphine) 2 mg Q2H PRN IV PAIN LEVEL 4-6 Last administered on 05/01/16 12:04; Admin Dose 2 MG; Start 04/29/16 at 18:30 Morphine Sulfate (morphine) 4 mg Q2H PRN IV PAIN LEVEL 7-10 Last administered on 04/30/16 01:28; Admin Dose 4 MG; Start 04/29/16 at 18:30 Aspirin (Halfprin) 81 mg DAILY PO Last administered on 05/01/16 08:47; Admin Dose 81 MG; Start 04/30/16 at 09:00 Atorvastatin Calcium (Lipitor) 40 mg DAILY PO Last administered on 05/01/16 08 :47; Admin Dose 40 MG; Start 04/30/16 at 09:00 Linagliptin (Tradjenta) 5 mg DAILY PO Last administered on 05/01/16 08:45; Admin Dose 5 MG; Start 04/30/16 at 09:00 Lorazepam (Ativan) 0.5 mg Q6 PRN PO ANXIETY Last administered on 04/30/16 17: 37; Admin Dose 0.5 MG; Start 04/29/16 at 18:30 Pantoprazole (Protonix Tab) 40 mg DAILY@06 PO Last administered on 05/01/16 06 :01; Admin Dose 40 MG; Start 04/30/16 at 06:00 Labetalol HCl (Labetalol) 20 mg Q2 PRN IV SBP>170 Last administered on 12:05; Admin Dose 20 MG; Start 04/29/16 at 18:30 Diagnostic Test (Pha) (Accucheck) 1 ea 02 XX Last administered on 05/01/16 02: 11; Admin Dose 1 EA; Start 04/30/16 at 02:00 Miscellaneous Information 1 ea NOTE XX ; Start 04/29/16 at 19:00 Glucose (Glutose) 15 gm Q15M PRN PO DECREASED GLUCOSE; Start 04/29/16 at 19:00 Glucose (Glutose) 22.5 gm Q15M PRN PO DECREASED GLUCOSE; Start 04/29/16 at 19: 00 Dextrose (D50w Syringe) 25 ml Q15M PRN IV DECREASED GLUCOSE; Start 04/29/16 at 19:00 Dextrose (D50w Syringe) 50 ml Q15M PRN IV DECREASED GLUCOSE; Start 04/29/16 at 19:00 Glucagon (Glucagen) 1 mg Q15M PRN IM DECREASED GLUCOSE; Start 04/29/16 at 19:00 Glucose (Glutose) 15 gm Q15M PRN BUCCAL DECREASED GLUCOSE; Start 04/29/16 at 19 :00 Insulin Glargine (Lantus) 15 unit BID SC Last administered on 05/01/16 09:00; Admin Dose 15 UNIT; Start 04/30/16 at 09:00 Isosorbide Mononitrate (Imdur) 30 mg BID PO Last administered on 05/01/16 08: 47; Admin Dose 30 MG; Start 04/30/16 at 21:00 Amlodipine Besylate (Norvasc) 5 mg BID PRN PO sbp>160; Start 04/30/16 at 18:30 Carvedilol (Coreg) 12.5 mg BID PO ; Start 05/01/16 at 21:00 Alex Huber DO May 01, 2016 14:47
--- NOTE | 2016-05-01 15:06 | PN ---
Date/Time of Note Date/Time of Note DATE: 05/01/16 TIME: 15:02 Assessment/Plan VTE Prophylaxis VTE Prophylaxis Intervention: heparin Lines/Catheters IV Catheter Type (from Nrs): [place] Assessment/Plan Chief Complaint/Hosp Course 1. Chest pain -Trops neg x 3 -FU on Cards recs -continue cardiac meds including nitroglycerin 2. Chronic kidney disease -Renal consult appreciated 3. Diabetes-A1C at 9.8 -Continue subcutaneous insulin 4. Hypertensive urgency-BP still elevated -Imdur D/C'd 2/2 DUNBAR, Coreg and Norvasc doses increased 5. History of coronary artery disease, status post coronary artery bypass graft -continue cardiac medications 6. DUNBAR likely 2/2 Nitrate Rx Prophylaxis-Heparin Problems: Subjective 24 Hr Interval Summary Neurologic: headache Exam/Review of Systems Vital Signs Vitals Vital Signs Date Time Temp Pulse Resp B/P Pulse Ox O2 Delivery O2 Flow Rate FiO2 05/01/16 12:39 83 05/01/16 11:00 98.7 19 174/90 95 05/01/16 08:30 Nasal Cannula 2.0 Intake and Output 04/30/16 04/30/16 05/01/16 15:00 23:00 07:00 Intake Total 640 ml 240 ml Balance 640 ml 240 ml Exam Constitutional: alert, oriented Respiratory: clear to auscultation Cardiovascular: regular rate and rhythm Gastrointestinal: soft, No distended Musculoskeletal: nl extremities to inspection Results Result Diagram: 04/30/16 0658 05/01/16 0712 Results 24 hrs Laboratory Tests Test 04/30/16 17:32 04/30/16 20:47 04/30/16 22:35 04/30/16 22:58 Bedside Glucose 143 238 H Urine Bilirubin NEGATIVE Urine Clarity CLEAR Urine Color LT. YELLOW Urine Glucose 0.1% H Urine Hemoglobin 1+ H Urine Ketones NEGATIVE Urine Leukocyte Esterase NEGATIVE Urine Microscopic RBC 2-5 Urine Microscopic WBC NONE SEEN Urine Nitrite NEGATIVE Urine Specific [place] 1.020 Urine Total Protein 2+ H Urine Urobilinogen 0.2 E.U./dL Urine pH 6.0 Urine Random Creatinine 81.35 Urine Random Sodium 104 H Test 05/01/16 02:05 05/01/16 07:12 05/01/16 08:42 05/01/16 11:50 Bedside Glucose 89 175 230 H Anion Gap 18 H Blood Urea Nitrogen 42 H Calcium Level 8.3 L Carbon Dioxide Level 22 Chloride Level 104 Creatinine 2.42 H Glucose Level 210 Potassium Level 5.1 Sodium Level 139 Medications Medications Current Medications Ondansetron HCl (Zofran Inj) 4 mg Q6H PRN IV NAUSEA AND/OR VOMITING; Start at 18:30 Acetaminophen (Tylenol Tab) 650 mg Q6H PRN PO PAIN LEVEL 1-3 OR FEVER Last administered on 05/01/16 09:20; Admin Dose 650 MG; Start 04/29/16 at 18:30 Zolpidem Tartrate (Ambien) 5 mg QHS PRN PO SLEEP; Start 04/29/16 at 18:30 Heparin Sodium (Porcine) (Heparin (5000 Units/0.5 ml)) 5,000 unit Q12 SC Last administered on 05/01/16 08:59; Admin Dose 5,000 UNIT; Start 04/29/16 at 21:00 Nitroglycerin (Nitroglycerin (Sl Tab) 0.4 Mg) 1 tab Q5M PRN SL CHEST PAIN; Start 04/29/16 at 18:30 Morphine Sulfate (morphine) 2 mg Q2H PRN IV PAIN LEVEL 4-6 Last administered on 05/01/16 12:04; Admin Dose 2 MG; Start 04/29/16 at 18:30 Morphine Sulfate (morphine) 4 mg Q2H PRN IV PAIN LEVEL 7-10 Last administered on 04/30/16 01:28; Admin Dose 4 MG; Start 04/29/16 at 18:30 Aspirin (Halfprin) 81 mg DAILY PO Last administered on 05/01/16 08:47; Admin Dose 81 MG; Start 04/30/16 at 09:00 Atorvastatin Calcium (Lipitor) 40 mg DAILY PO Last administered on 05/01/16 08 :47; Admin Dose 40 MG; Start 04/30/16 at 09:00 Linagliptin (Tradjenta) 5 mg DAILY PO Last administered on 05/01/16 08:45; Admin Dose 5 MG; Start 04/30/16 at 09:00 Lorazepam (Ativan) 0.5 mg Q6 PRN PO ANXIETY Last administered on 04/30/16 17: 37; Admin Dose 0.5 MG; Start 04/29/16 at 18:30 Pantoprazole (Protonix Tab) 40 mg DAILY@06 PO Last administered on 05/01/16 06 :01; Admin Dose 40 MG; Start 04/30/16 at 06:00 Labetalol HCl (Labetalol) 20 mg Q2 PRN IV SBP>170 Last administered on 12:05; Admin Dose 20 MG; Start 04/29/16 at 18:30 Diagnostic Test (Pha) (Accucheck) 1 ea 02 XX Last administered on 05/01/16 02: 11; Admin Dose 1 EA; Start 04/30/16 at 02:00 Miscellaneous Information 1 ea NOTE XX ; Start 04/29/16 at 19:00 Glucose (Glutose) 15 gm Q15M PRN PO DECREASED GLUCOSE; Start 04/29/16 at 19:00 Glucose (Glutose) 22.5 gm Q15M PRN PO DECREASED GLUCOSE; Start 04/29/16 at 19: 00 Dextrose (D50w Syringe) 25 ml Q15M PRN IV DECREASED GLUCOSE; Start 04/29/16 at 19:00 Dextrose (D50w Syringe) 50 ml Q15M PRN IV DECREASED GLUCOSE; Start 04/29/16 at 19:00 Glucagon (Glucagen) 1 mg Q15M PRN IM DECREASED GLUCOSE; Start 04/29/16 at 19:00 Glucose (Glutose) 15 gm Q15M PRN BUCCAL DECREASED GLUCOSE; Start 04/29/16 at 19 :00 Insulin Glargine (Lantus) 15 unit BID SC Last administered on 05/01/16 09:00; Admin Dose 15 UNIT; Start 04/30/16 at 09:00 Amlodipine Besylate (Norvasc) 5 mg BID PRN PO sbp>160; Start 04/30/16 at 18:30 ; Stop 05/02/16 at 09:00 Carvedilol (Coreg) 12.5 mg BID PO ; Start 05/01/16 at 21:00 Amlodipine Besylate (Norvasc) 5 mg BID PO ; Start 05/01/16 at 21:00 ALEX CASTROb 17, 2017 15:06
[2016-05-01] MEDS ORDERED: AMLODIPINE 5 MG TAB PO SCH (21:00)
[2016-05-01] MEDS: morphine 4 MG/ML VIAL IV PRN (23:49)
[2016-05-02] VITALS (11 sets, daily range): BP systolic 133–179; BP diastolic 71–94; PULSE 80–104; RESP 18–20
[2016-05-02] MEDS ORDERED: hydrALAzine 20 MG INJ IV ONE (02:00)
[2016-05-02] MEDS: ACCUCHECK XX SCH (02:17)
[2016-05-02] MEDS: morphine 4 MG/ML VIAL IV PRN ×2 (04:52→15:26)
[2016-05-02] MEDS: PANTOPRAZOLE (EC) 40 MG TAB PO SCH (05:48)
[2016-05-02] MEDS: ASPIRIN (EC) 81 MG TAB PO SCH (08:37)
[2016-05-02] MEDS: ATORVASTATIN 40 MG TAB PO SCH (08:37)
[2016-05-02] MEDS: LINAGLIPTIN 5 MG TABLET PO SCH (08:37)
[2016-05-02] MEDS: HEPARIN 5,000 UNIT/0.5 ML SYG SC SCH (08:38)
[2016-05-02] MEDS: INSULIN GLARGINE [LANtus] 3 ML PEN SC SCH (08:42)
[2016-05-02] MEDS: INSULIN ASPART [NOVOLOG] 3 ML PEN SC SCH ×3 (08:43→17:26)
[2016-05-02] MEDS ORDERED: AMLODIPINE 5 MG TAB PO SCH (09:00)
[2016-05-02] MEDS ORDERED: AMLODIPINE 10 MG TAB PO SCH (09:00)
--- NOTE | 2016-05-02 09:04 | CONS ---
Date/Time of Note Date/Time of Note DATE: 05/02/16 TIME: 09:01 Consult Date/Type/Reason Admit Date/Time Apr 29, 2016 at 15:17 Initial Consult Date Type of Consultation: neph Subjective The patient is stable, no acute events overnight. The patient continues to have pain, although it is improving. No other events noted. HEENT: Head is normocephalic. NECK: Supple. HEART: Regular rate. LUNGS: Show diminished breath sounds at the base. ABDOMEN: Soft, nontender to palpation without rebound or guarding. EXTREMITIES: Negative for clubbing, cyanosis, no edema. DERMATOLOGIC: No rashes. MUSCULOSKELETAL: No joint effusions. NEUROLOGIC: No change in exam. MEDICATIONS: The patient's medications have been reviewed. Objective Vital Signs Date Time Temp Pulse Resp B/P Pulse Ox O2 Delivery O2 Flow Rate FiO2 05/02/16 08:28 104 05/02/16 07:58 98.7 18 173/94 94 05/02/16 04:00 Room Air 05/01/16 08:30 2.0 Intake and Output 05/01/16 05/01/16 05/02/16 15:00 23:00 07:00 Intake Total 1600 ml Balance 1600 ml Results/Medications Result Diagram: 04/30/16 0658 05/01/16 0712 Results 24 hrs Laboratory Tests Test 05/01/16 11:50 05/01/16 18:13 05/01/16 21:09 05/02/16 02:12 Bedside Glucose 230 H 232 H 209 137 Test 05/02/16 08:17 Bedside Glucose 216 Medications Current Medications Ondansetron HCl (Zofran Inj) 4 mg Q6H PRN IV NAUSEA AND/OR VOMITING; Start at 18:30 Acetaminophen (Tylenol Tab) 650 mg Q6H PRN PO PAIN LEVEL 1-3 OR FEVER Last administered on 05/01/16 15:12; Admin Dose 650 MG; Start 04/29/16 at 18:30 Zolpidem Tartrate (Ambien) 5 mg QHS PRN PO SLEEP Last administered on 02:12; Admin Dose 5 MG; Start 04/29/16 at 18:30 Heparin Sodium (Porcine) (Heparin (5000 Units/0.5 ml)) 5,000 unit Q12 SC Last administered on 05/02/16 08:38; Admin Dose 5,000 UNIT; Start 04/29/16 at 21:00 Nitroglycerin (Nitroglycerin (Sl Tab) 0.4 Mg) 1 tab Q5M PRN SL CHEST PAIN; Start 04/29/16 at 18:30 Morphine Sulfate (morphine) 2 mg Q2H PRN IV PAIN LEVEL 4-6 Last administered on 05/01/16 12:04; Admin Dose 2 MG; Start 04/29/16 at 18:30 Morphine Sulfate (morphine) 4 mg Q2H PRN IV PAIN LEVEL 7-10 Last administered on 05/02/16 04:52; Admin Dose 4 MG; Start 04/29/16 at 18:30 Aspirin (Halfprin) 81 mg DAILY PO Last administered on 05/02/16 08:37; Admin Dose 81 MG; Start 04/30/16 at 09:00 Atorvastatin Calcium (Lipitor) 40 mg DAILY PO Last administered on 05/02/16 08 :37; Admin Dose 40 MG; Start 04/30/16 at 09:00 Linagliptin (Tradjenta) 5 mg DAILY PO Last administered on 05/02/16 08:37; Admin Dose 5 MG; Start 04/30/16 at 09:00 Lorazepam (Ativan) 0.5 mg Q6 PRN PO ANXIETY Last administered on 04/30/16 17: 37; Admin Dose 0.5 MG; Start 04/29/16 at 18:30 Pantoprazole (Protonix Tab) 40 mg DAILY@06 PO Last administered on 05/02/16 05 :48; Admin Dose 40 MG; Start 04/30/16 at 06:00 Labetalol HCl (Labetalol) 20 mg Q2 PRN IV SBP>170 Last administered on 23:41; Admin Dose 20 MG; Start 04/29/16 at 18:30 Diagnostic Test (Pha) (Accucheck) 1 ea 02 XX Last administered on 05/02/16 02: 17; Admin Dose 1 EA; Start 04/30/16 at 02:00 Miscellaneous Information 1 ea NOTE XX ; Start 04/29/16 at 19:00 Glucose (Glutose) 15 gm Q15M PRN PO DECREASED GLUCOSE; Start 04/29/16 at 19:00 Glucose (Glutose) 22.5 gm Q15M PRN PO DECREASED GLUCOSE; Start 04/29/16 at 19: 00 Dextrose (D50w Syringe) 25 ml Q15M PRN IV DECREASED GLUCOSE; Start 04/29/16 at 19:00 Dextrose (D50w Syringe) 50 ml Q15M PRN IV DECREASED GLUCOSE; Start 04/29/16 at 19:00 Glucagon (Glucagen) 1 mg Q15M PRN IM DECREASED GLUCOSE; Start 04/29/16 at 19:00 Glucose (Glutose) 15 gm Q15M PRN BUCCAL DECREASED GLUCOSE; Start 04/29/16 at 19 :00 Insulin Glargine (Lantus) 15 unit BID SC Last administered on 05/02/16 08:42; Admin Dose 15 UNIT; Start 04/30/16 at 09:00 Carvedilol (Coreg) 12.5 mg BID PO Last administered on 05/02/16 08:37; Admin Dose 12.5 MG; Start 05/01/16 at 21:00 Amlodipine Besylate (Norvasc) 10 mg DAILY PO Last administered on 05/02/16 08: 36; Admin Dose 10 MG; Start 05/02/16 at 09:00 Assessment/Plan Chief Complaint/Hosp Course 1. Nonoliguric acute kidney injury on top of chronic kidney disease with previous baseline creatinine around 2 mg/dL. Etiology of acute kidney injury is secondary to hemodynamics. The patient's renal function is fluctuating, but overall improved from admission. At this point, would continue current treatment plan. Continue supportive care, renally dose all meds, avoid nephrotoxins. Would consider reintroducing SATISH inhibitor if patient's renal functions stay stable. The patient's renal ultrasound was reviewed. There is no hydronephrosis, otherwise unremarkable. The patient's urinalysis shows no active sediment. 3. Hyperkalemia, likely secondary to chronic kidney disease, acute kidney injury, SATISH inhibitor. The patient's potassium levels have normalized. Continue low-potassium diet. 4. Mineral bone disorder. Continue to monitor calcium, phosphorus levels. No need for phosphate binder. 5. Hypertension urgency. The patient's blood pressure medications were adjusted, currently on calcium channel phillip. Will continue. Consider adding hydralazine. If renal function remains stable, we will consider reintroduction of SATISH inhibitor. 6. Chest pain. Etiology is possibly noncardiac. Cardiology has evaluated the patient. At this point continue current medical management. Follow up with company driver, Dr. Huber. Continue pain control. 7. Coronary artery disease status post coronary artery bypass graft. Continue medical management. 8. Diabetes. Continue current insulin regimen. 9. Anxiety disorder. Continue Ativan. Problems: DOMINGA HEARN MD May 02, 2016 09:04
[2016-05-02 10:32] LABS: POTASSIUM 5.7 mmol/L (3.5-5.1)
[2016-05-02 10:35] LABS: CREATININE 2.31 mg/dl (0.61-1.24)
[2016-05-02 10:36] LABS: CALCIUM 8.7 mg/dl (8.4-10.2)
[2016-05-02] MEDS: morphine 2 MG INJ IV PRN (12:40)
[2016-05-02] MEDS: LABETALOL HCL 20MG INJ IV PRN (12:41)
[2016-05-02] MEDS ORDERED: hydrALAzine 20 MG INJ IV PRN (13:30)
[2016-05-02] MEDS ORDERED: LORAZEPAM 0.5 MG TAB PO ONE (15:00)
--- NOTE | 2016-05-02 16:21 | PN ---
DATE: Discussed with staff. ____was reviewed. The patient has been confused. Had to be restrained as we ll. Denies any chest pain or pressure to me. MEDICATIONS: Reviewed, which include: 1. Hydralazine p.r.n. 2. Amlodipine 10 daily. 3. Coreg 12.5. 4. Aspirin. 5. Lipitor. 6. Tradjenta. 7. Insulin. PHYSICAL EXAMINATION: VITAL SIGNS: Temperature 98.4, heart rate of 88, blood pressure 170/90, respiration rate of 18. HEENT: Normocephalic, atraumatic. Pupils are equal. CARDIOVASCULAR: Regular rate and rhythm. PULMONARY: ____ with no wheezes heard. GASTROINTESTINAL: Soft, nontender. EXTREMITIES: Positive lower extremity edema. NEUROLOGIC: Awake and alert to person. PSYCHIATRIC: Appears to be calm at this point. LABORATORY: Sodium 138, potassium 5.7, BUN of 43, creatinine 2.3, glucose of 284. ASSESSMENT AND PLAN: 1. Hypertension. 2. History of coronary artery disease. 3. History of coronary bypass graft. 4. Encephalopathy. 5. Renal failure, chest pain has resolved now. 6. Diabetes, on insulin. RECOMMENDATIONS: Follow with renal recommendations. We will continue with the current cardiac care . Aspirin will be continued. ____ as tolerated. Dictated By: CHARLY PINEDA MD AV/DAVID Conf#: [id number] DID#: [id number] CC: ALEX CASTRO MD;*[facility]*
--- NOTE | 2016-05-02 17:12 | PDOCDIS ---
Discharge Instructions CONDITION Patient Condition: Good HOME CARE INSTRUCTIONS: Special Diet: carb controlled diet ACTIVITY: Activity Restrictions: No Restrictions FOLLOW UP/APPOINTMENTS Appointments F/U WITH YOUR PCP IN 1-2 WEEKS ALEX CASTRO May 02, 2016 17:11
[2016-05-02] MEDS ORDERED: AMLO-147 PO (17:14)
[2016-05-02] MEDS ORDERED: CARV12.579 PO (17:14)
--- NOTE | 2016-05-03 07:35 | DS ---
DATE OF ADMISSION: 04/29/2016 DATE OF DISCHARGE: 05/02/2016 DISCHARGE DIAGNOSES: 1. Chest pain. Acute coronary syndrome ruled out. Pain is likely musculoskeletal in origin. 2. Chronic kidney disease, stable. 3. Diabetes, A1c 9.8. Continue home regimen. 4. Hypertensive urgency, BP now stable. The patient's Imdur discontinued and started on Norvasc. Metoprolol was recommended to be discontinued and started on Coreg. 5. History of coronary artery disease status post coronary artery bypass graft and recent heart cat heterization that showed no new disease. Continue cardiac medications. 6. Headache, likely secondary to nitrate medications. Headache now resolved with discontinuation o f nitrates. Recommend to discontinue nitrates upon return home. HOSPITAL COURSE: The patient is a 60-year-old male with history of coronary artery disease status p ost CABG in the past, CKD stage III, diabetes, hypertension. The patient presents with chest pain. He had a recent heart catheterization several months ago that showed coronary artery disease but no new lesions. No lesions required stenting at that time. The patient was seen by cardiology and ne phrology during this hospitalization, and ACS was ruled out with negative troponins. EKG showed no signs of ischemia. The patient's blood pressure was severely elevated, and his medications were rev ised. His nitrates were held as he was having a headache and it was felt to be secondary to nitrate s as his headache resolved once nitrates were stopped. The patient was started on Norvasc, started on Coreg. BP ultimately did become stable. On the day of discharge, the patient's vitals, labs, ph ysical exam were stable. He had no acute complaints, and questions were answered. CONDITION ON DISCHARGE: Stable. DISPOSITION: To home. MEDICATIONS: The patient is to continue his usual home medications but is to stop taking Imdur and metoprolol. He was given a new prescription for Norvasc and Coreg. FOLLOWUP: The patient is to follow up with his PCP in 1 to 2 weeks. Greater than 30 minutes was spent coordinating discharge of patient. Dictated By: ALEX CASTRO MD BS/NTS Conf#: [id number] DID#: [id number]
[2016-05-04 15:38] LABS: MICROALBUMIN 98.7 mg/dL
== END 2016-05-02 20:00 | disposition home or self-care (01) ==
LOC: E/R 13:02 → UNDOADMOB 15:17 → INTOOBSV 15:17 → MS4 15:17 → UNDOADMOB 17:28 → MS4 18:12
PROVIDERS: ADMIT Internal Medicine; ATTEND Internal Medicine
DX: R07.9 Chest pain, unspecified (principal); I12.9 Hypertensive chronic kidney disease with stage 1 through stage 4 chronic kidney disease, or unspecified chronic kidney disease; N18.3 Chronic kidney disease, stage 3 (moderate); E11.22 Type 2 diabetes mellitus with diabetic chronic kidney disease; I25.10 Atherosclerotic heart disease of native coronary artery without angina pectoris; Z95.1 Presence of aortocoronary bypass graft; R51 Headache; N17.9 Acute kidney failure, unspecified; E78.5 Hyperlipidemia, unspecified; F41.9 Anxiety disorder, unspecified; M89.9 Disorder of bone, unspecified; Z23 Encounter for immunization; Z79.82 Long term (current) use of aspirin; Z79.4 Long term (current) use of insulin; Z82.49 Family history of ischemic heart disease and other diseases of the circulatory system
CPT/HCPCS: 36415; 71010; 76775; 80048; 80053; 80061; 81001; 81003; 82043; 82962; 83036; 83690; 83735; 83880; 84100; 84155; 84300; 84484; 85025; 90686; 93005; 96372; 96374; 96375; 96376; 99285; G0378; J0360; J1644; J1815; J2270; J2405; J7040

== ENCOUNTER 2016-06-17 20:15 | Emergency (ER) | payer MEDICARE, OTHER ==
[~2016-06-17] VITALS: Ht 160 cm; Wt 72.0 kg
[~2016-06-17 20:15] MED LIST changes: +AMLO-147 PO; +BENA10TA48 PO; +CARV12.579 PO; +CLON0.2T5 PO; +DYAZIDE PO; +GLIM4TAB PO; -INSU100C SC; -INSU100I15 SC; +INSU300I SQ; -ISOS60TA52 PO; +LINA5TAB PO; -METO-53 PO
[2016-06-17 21:08] VITALS: Ht 160 cm; Wt 72.0 kg
--- NOTE | 2016-06-17 21:43 | ERD ---
ER Documentation Chief Complaint Date/Time DATE: 06/17/16 TIME: 21:42 Chief Complaint Cough and DUNBAR when he cough and lung pain HPI 60 yo M hx of CABG who presents to ED with cough for 2-3 days. Patient with cough, dry and non-productive, with associated headache, myalgias and chest wall pain with cough. No fever. No exertional chest pain, no significant SOB. No flu vaccine this season. ROS All systems reviewed and are negative except as per history of present illness. Medications Home Meds Active Scripts Ibuprofen* (Motrin*) 800 Mg Tab, 800 MG PO Q6H Y for PAIN AND OR ELEVATED TEMP, #30 TAB Prov:LORENA ALEXANDRA MD 06/17/16 Hydrocodone Bit/Homatrop Me-Br ([place]ussigon 5-1.5 mg Tablet) 1 Each Tablet, 1 EACH PO TID Y for COUGH, #10 TAB Prov:LORENA ALEXANDRA MD 06/17/16 Oseltamivir Phosphate* (Tamiflu*) 75 Mg Capsule, 75 MG PO BID for 5 Days, CAP Prov:LORENA ALEXANDRA MD 06/17/16 Carvedilol* (Carvedilol*) 12.5 Mg Tablet, 12.5 MG PO BID, #60 TAB 1 Refill Prov:ALEX CASTRO 05/02/16 Amlodipine Besylate* (Amlodipine Besylate*) 10 Mg Tablet, 10 MG PO DAILY, #60 TAB Prov:ALEX CASTRO 05/02/16 Nitroglycerin* (Nitroglycerin* SL) 0.4 Mg Tab.subl, 0.4 MG SL Q5MIN Y for CHEST PAIN, #30 BOTTLE Prov:GONZALEZ PEÑA 03/22/14 Reported Medications Insulin Glargine,Hum.rec.anlog (Shea Duong) 300 Unit/1 Ml Insuln.pen, 80 UNIT SQ BID 04/29/16 Linagliptin (TRADJENTA) 5 Mg Tablet, 5 MG PO DAILY, TAB 04/29/16 Glimepiride* (Glimepiride*) 4 Mg Tablet, 4 MG PO WITH BREAKFAST DINNE, TAB 04/29/16 Clonidine Hcl* (Clonidine Hcl*) 0.2 Mg Tablet, 0.2 MG PO Q8 Y for ELEVATED BLOOD PRESSURE, TAB 04/29/16 Triamterene-HCTZ (Dyazide) 37.5 - 25 Mg Cap, 1 CAP PO DAILY, CAP 04/29/16 Benazepril Hcl* (Benazepril Hcl*) 10 Mg Tablet, 10 MG PO DAILY, #30 TAB 04/29/16 Omeprazole* (Prilosec*) 20 Mg Capsule.dr, 20 MG PO DAILY, CAP 03/20/14 Lorazepam* (Lorazepam*) 0.5 Mg Tablet, 0.5-1 MG PO QID Y for ANXIETY, TAB 03/20/14 Atorvastatin* (Atorvastatin*) 40 Mg Tablet, 40 MG PO DAILY 06/10/13 Aspirin Ec (Aspir 81) 81 Mg Tablet.dr, 81 MG PO DAILY 06/10/13 Allergies Allergies: Coded Allergies: No Known Allergy (Unverified , 04/29/16) PMhx/Soc Anesthesia Reaction: No Hx Neurological Disorder: No Hx Respiratory Disorders: No Hx Psychiatric Problems: No Hx Miscellaneous Medical Probl: No Hx Alcohol Use: No Hx Substance Use: No Hx Tobacco Use: No FmHx Family History: No diabetes Physical Exam Vitals Vital Signs Date Time Temp Pulse Resp B/P Pulse Ox O2 Delivery O2 Flow Rate FiO2 06/17/16 21:08 98.4 99 20 153/73 98 Physical Exam General: Well developed, well nourished, no acute distress, persistent dry cough in the room Head: Normocephalic, atraumatic. Eyes: Pupils equally reactive, EOM intact ENT: Moist mucous membranes Neck: Supple, no lymphadenopathy Respiratory: Lungs clear bilaterally, no distress, slight reproducible tenderness along the anterior chest wall that appears to be exacerbated when the patient is coughing Cardiovascular: RRR, no murmurs, rubs, or gallops Abdominal: Soft, non-tender, non-distended, no peritoneal signs : Deferred MSK: No edema, no unilateral swelling, 5/5 strength Neurologic: Alert and oriented, moving all extremities, normal speech, no focal weakness, no cerebellar signs Skin: No rash Psych: Normal mood Results 24 hrs Current Medications Medications (Trade) Dose Ordered Sig/Omid Route PRN Reason Start Time Stop Time Status Last Admin Dose Admin Ibuprofen (Motrin) 800 mg ONCE ONCE PO 06/17/16 22:00 06/17/16 22:01 Procedures/MDM The patient's clinical presentation is very consistent with an acute viral syndrome. The patient has cough, myalgias. He has no chest pain. He states none of these symptoms are similar to anginal equivalent. The patient is afebrile with normal vital signs, no hypoxia. At this time I do not believe chest x-ray or antibiotics are indicated. The patient has less than 72 hours of symptoms, he has multiple comorbidities and would qualify for Tamiflu initiation. The patient does not exhibit any clinical signs or symptoms concerning for serious bacterial infection or systemic illness. Based on history and clinical exam findings the patient does not appear to have evidence of pneumonia, strep pharyngitis, urinary tract infection, bacteremia, sepsis, or meningitis. For these reasons I do not believe it is necessary to obtain laboratory testing or diagnostic imaging. I believe it would be appropriate for symptom control, and close outpatient primary care follow-up. An rn procedures was used during ER course. Patient continues to be well- appearing. I recommended close primary care follow-up We discussed follow up with the patient's primary care doctor within 24 to 48 hours as needed. We also discussed return to the emergency room for worsening symptoms or worsening condition. Discharge Medications: Tamiflu, Hycodan, Motrin Departure Diagnosis: Primary Impression: Viral syndrome Additional Impression: Influenza-like illness Condition: Stable Patient Instructions: Viral Syndrome (Adult) Additional Instructions: Llame al doctor samantha campos (Referral Sources) MAANA y prasanna harriet SHAHRAM PARA DENTRO DE HARRIET SEMANA. Dgale a la secretaria que nosotros le instruimos hacer esta shahram.Avise o llame si barboza condicin se empeora antes de la shahram. LORENA ALEXANDRA MD Jun 17, 2016 21:43
[2016-06-17] MEDS ORDERED: HYDR-3652 PO (21:46)
[2016-06-17] MEDS ORDERED: OSLT75C PO (21:46)
[2016-06-17] MEDS ORDERED: IBUP800T25 PO (21:46)
[2016-06-17 22:00] VITALS: BP 157/99; PULSE 96; RESP 20; TEMP 98.1
[2016-06-17] MEDS ORDERED: IBUPROFEN 800 MG TAB PO ONE (22:00)
== END 2016-06-17 22:02 | disposition home or self-care (01) ==
LOC: FTE 20:15
DX: B34.9 Viral infection, unspecified (principal); R51 Headache; M79.1 Myalgia; E11.9 Type 2 diabetes mellitus without complications; Z79.4 Long term (current) use of insulin; Z79.82 Long term (current) use of aspirin; Z79.84 Long term (current) use of oral hypoglycemic drugs; Z95.1 Presence of aortocoronary bypass graft
CPT/HCPCS: 99284

== ENCOUNTER 2017-02-23 05:44 | Day surgery (SDC) | payer MEDICARE, OTHER ==
--- NOTE | 2017-02-22 11:46 | PREOPHP ---
DATE OF OPERATION: ANESTHESIA: This 61-year-old patient is admitted for elective cataract surgery of the left eye. 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 The patient has previous ly been treated with scatter retinal laser treatment. The patient also has undergone cataract surge ry of the right eye performed in December 2015 with good visual result. The patient's systemic histo ry is also positive for hypercholesterolemia and hypertension. CURRENT MEDICATIONS: Include: 1. Maxzide. 2. Aspirin (discontinued 1 week prior to surgery). 3. Lopressor. 4. Procardia. 5. Lantus insulin. 6. Nitroglycerin ALLERGIES: THERE ARE NO KNOWN ALLERGIES. PHYSICAL EXAMINATION: Visual acuity with best correction is 20/30 in the right eye and 20/200 in the left eye. Slit lamp examination reveals a posterior chamber intraocular lens in appropriate positi on and an anterior cortical nuclear sclerotic cataract with vacuolar changes in the left eye. Appla nation tonometry is 17 mmHg. Examination of the posterior portion of the eye does not reveal the pr esence of any vitreous hemorrhage. The patient has evidence of prior retinal laser therapy. POSTOPERATIVE DIAGNOSIS: Cataract, left eye. PLAN: Cataract extraction with lens implant, left eye. SURGEON: The risks and alternatives to the surgery have been discussed with the patient as well as the potential limitation of improvement of visual acuity due to the diabetic retinopathy. The patie nt understands this and agrees to proceed with surgery in hope of improving visual acuity leading to a greater ability to perform activities of daily living. Dictated By: CHANDU ROTH/DAVID Conf#: [id number] DID#: [id number]
[~2017-02-23] VITALS: Ht 167.6 cm; Wt 70.1 kg
[2017-02-23] VITALS (10 sets, daily range): BP systolic 155–175; BP diastolic 77–88; PULSE 75–88; RESP 10–20; Ht 167.6 cm; Wt 70.1 kg
[~2017-02-23 05:44] MED LIST changes: +HYDR-3652 PO; +IBUP800T25 PO; +NITR0.4T32 SL; -NITR0.4T6 SL; +OSLT75C PO
[2017-02-23] MEDS ORDERED: CYCLOPENTOLATE/PHENYLEPH 2 ML OPH OPER SCH (06:00)
[2017-02-23] MEDS ORDERED: MOXIFLOXACIN 0.5% 3 ML OPH OPER SCH (06:00)
[2017-02-23] MEDS ORDERED: BROMFENAC SODIUM 1.7 ML OPH DROP OPER SCH (06:00)
[2017-02-23] MEDS ORDERED: SOD CHLORIDE 0.9% 1,000 ML IV SCH (06:00)
[2017-02-23] MEDS ORDERED: TROPICAMIDE 1% 3 ML OPH OPER SCH (06:00)
[2017-02-23] MEDS ORDERED: CARBACHOL 0.01% 1.5 ML OPH INJ ONE (06:24)
[2017-02-23] MEDS ORDERED: GENTAMICIN 80 MG INJ ONE (06:24)
[2017-02-23] MEDS ORDERED: DEXAMETHASONE 4 MG/ML 1 ML INJ ONE (06:25)
[2017-02-23] MEDS ORDERED: EPINEPHrine 1 MG INJ ONE (06:25)
[2017-02-23] MEDS ORDERED: LIDOCAINE 4% (MPF) 5 ML INJ ONE (06:26)
[2017-02-23] MEDS ORDERED: INSU300I SQ (07:24)
[2017-02-23] MEDS ORDERED: INSU200I SQ (07:25)
[2017-02-23] MEDS ORDERED: OMEP40CA6 PO (07:26)
[2017-02-23] MEDS ORDERED: CARV6.2579 PO (07:26)
[2017-02-23] MEDS ORDERED: CEFAZOLIN 1 GM INJ INJ ONE (08:23)
[2017-02-23] MEDS ORDERED: CARBACHOL 0.01% 1.5 ML OPH INJ IO ONE (08:23)
[2017-02-23] MEDS ORDERED: DEXAMETHASONE 4 MG/ML 1 ML INJ INJ ONE (08:23)
[2017-02-23] MEDS ORDERED: PROPOFOL 20 ML ONE (08:34)
[2017-02-23] MEDS ORDERED: LIDOCAINE 2% (SDV) 5 ML INJ ONE (08:34)
[2017-02-23] MEDS ORDERED: hydrALAzine 20 MG INJ ONE ×2 (08:35→09:41)
--- NOTE | 2017-02-23 09:15 | SIPON ---
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
[2017-02-23] MEDS ORDERED: LABETALOL HCL 20MG INJ ONE (09:42)
[2017-02-23] MEDS ORDERED: LABETALOL HCL 20MG INJ IV PRN (10:00)
--- NOTE | 2017-02-24 06:34 | OPR ---
DATE OF OPERATION: 02/23/2017 PREOPERATIVE DIAGNOSIS: Cataract, left eye. POSTOPERATIVE DIAGNOSIS: Cataract, left eye. OPERATION PERFORMED: Cataract extraction with lens implant, left eye. SURGEON: Chandu Mcclendon MD. ANESTHESIA: Local standby. ANESTHESIOLOGIST: Dr. Hill OPERATION: Phacoemulsification with posterior chamber intraocular lens implant , left eye. PROCEDURE: The patient was brought to the operating room and placed on the table with an IV in place and the patient attached to an security monitor. Oxygen was given via face mask. After some intravenous sedation was administered, local anesthesia was given using Xylocaine 2% with epinephrine, mixed with Marcaine 0.5%. This was given in a lid block and retrobulbar injection. The patient was then prepped and draped in the usual sterile manner. A wire lid speculum was inserted between the lids of the left eye. A Superblade was used to enter the anterior chamber at the corneoscleral limbus at the 10:30 o'clock position. A separate incision was made using a 3.0-mm keratome which entered the corneoscleral junction at the 12 o'clock position. Through this 3- mm opening, an irrigating cystotome was introduced into the anterior chamber. The chamber was filled with Viscoat and an anterior capsulotomy was performed. Balanced salt solution was then used for hydrodissection of the lens. A phacoemulsification handpiece was then brought into the field and introduced into the anterior chamber. The lens nucleus was emulsified using a deep groove and cracking the nucleus into quadrants. Following this, each quadrant was aspirated and emulsified at the pupillary margin. After this was completed, the irrigation/aspiration handpiece was brought to the field, introduced into the posterior chamber, and the lens cortical material was removed. When this was completed, additional Viscoat was injected into the anterior and posterior chambers. Provisc was used prior to insertion of the lens implant. The 3-mm opening had its internal lips enlarged, and then the posterior chamber intraocular lens measuring 21.5 diopters ([employer], model LI61A0) was then injected into the posterior chamber using the lens injector system. After the leading haptic was introduced into the capsular bag and the lens optic was present in the center of the eye, the injector was removed and the trailing haptic was grasped with non-toothed forceps and introduced into the capsular fold superiorly. A Sinskey hook was then used to rotate the intraocular lens so that the lips were oriented in the horizontal meridian. One 10-0 nylon suture was placed across the wound. Prior to tying, the irrigation/aspiration handpiece was reintroduced into the anterior chamber to remove the Viscoat. Miochol was instilled to constrict the pupil, and then the 10-0 nylon suture was tied. The ends were cut short and then the knot was buried. Then, 0.5 mL of dexamethasone and 0.5 mL of Ancef were injected into the sub- [place]on space in the inferior fornix. Ciloxan drops were then placed on the surface of the eye. The speculum was removed and a patch was applied. The patient then left the operating room in satisfactory condition. Dictated By: CHANDU ROTH/DAVID Conf#: [id number] DID#: [id number] AMBER
== END 2017-02-23 10:45 | disposition home or self-care (01) ==
LOC: SDS 05:44
PROVIDERS: ATTEND Ophthalmology
DX: H25.12 Age-related nuclear cataract, left eye (principal); E11.9 Type 2 diabetes mellitus without complications
CPT/HCPCS: 66984; 82962; J0171; J0360; J0690; J1100; J1580; V2632

== ENCOUNTER 2018-04-07 20:23 | Emergency (ER) | payer MEDICARE, OTHER ==
[~2018-04-07] VITALS: Ht 167.6 cm; Wt 73.4 kg
[~2018-04-07 20:23] MED LIST changes: +BENA10TA4 PO; -BENA10TA48 PO; -CARV12.579 PO; +CARV6.2579 PO; -CLON0.2T5 PO; -GLIM4TAB PO; -HYDR-3652 PO; -IBUP800T25 PO; +INSU200I SQ; -OMEP20CA9 PO; +OMEP40CA6 PO; -OSLT75C PO
[2018-04-07 20:25] VITALS: Ht 167.6 cm; Wt 73.4 kg
[2018-04-07] MEDS ORDERED: FAMOTIDINE 20 MG INJ IV STA (21:41)
[2018-04-07] MEDS ORDERED: ONDANSETRON 4 MG INJ IV STA (21:41)
[2018-04-07] MEDS ORDERED: METHYLPREDNISOLONE 125 MG INJ IV STA (21:41)
[2018-04-07] MEDS ORDERED: HYDROmorphONE 1 MG/ML SYG IV STA (21:41)
[2018-04-07] MEDS ORDERED: DIPHENHYDRAMINE 50 MG INJ IV STA (21:41)
[2018-04-07] MEDS ORDERED: NICARDipine HCL 30 MG CAPSULE PO ONE (22:00)
[2018-04-07] MEDS ORDERED: GLIM4TAB PO (22:44)
[2018-04-07] MEDS ORDERED: CLON-379 PO (22:44)
[2018-04-07] MEDS ORDERED: LISI2.5T59 PO (22:44)
[2018-04-07] MEDS ORDERED: LORA1TAB PO (22:46)
[2018-04-07 23:42] VITALS: BP 155/72; PULSE 86; RESP 12
[2018-04-07] MEDS ORDERED: PRED20TA PO (23:50)
[2018-04-07] MEDS ORDERED: AMLO-218 PO (23:50)
--- NOTE | 2018-04-07 23:53 | ERD ---
ER Documentation Chief Complaint Chief Complaint Pt took ambroxol dextrometorfano and simicof d now has swelling to face HPI This is a 62-year-old male who took a cough medicine from [place] that is likely dextromethorphan and another medicine called simicof which is also a cough suppressant from [place] and within 20 minutes broke out in a diffuse red rash to his body and face. He had no swelling of his tongue lips throat no difficulty swallowing or breathing. He says he also has a headache and is thinking his blood pressure is high. No focal neurological complaints headache is dull and constant and is improved since it was in the afternoon. No chest pain shortness of breath dizziness or syncope ROS All systems reviewed and are negative except as per history of present illness. Medications Home Meds Active Scripts Amlodipine Besylate* (Norvasc*) 10 Mg Tablet, 10 MG PO DAILY, #30 TAB Prov:BG OLIVEIRA DO 04/07/18 Prednisone* (Prednisone*) 20 Mg Tab, 60 MG PO DAILY for 4 Days, TAB Prov:BG OLIVEIRA DO 04/07/18 Amlodipine Besylate* (Amlodipine Besylate*) 10 Mg Tablet, 10 MG PO DAILY, #60 TAB Prov:ALEX CASTRO 05/02/16 Nitroglycerin* (Nitroglycerin* SL) 0.4 Mg Tab.subl, 0.4 MG SL Q5MIN PRN for CHEST PAIN, #30 BOTTLE Prov:GONZALEZ PEÑA 03/22/14 Reported Medications Lorazepam* (Lorazepam*) 1 Mg Tablet, 1 MG PO Q6 PRN for ANXIETY, #60 TAB 04/07/18 Clonidine Hcl* (Clonidine Hcl*) 0.1 Mg Tab, 0.1 MG PO Q8, TAB 04/07/18 Glimepiride* (Glimepiride*) 4 Mg Tablet, 4 MG PO WITH BREAKFAST DINNE, TAB 04/07/18 Lisinopril* (Lisinopril*) 2.5 Mg Tablet, 2.5 MG PO DAILY, #30 TAB 04/07/18 Carvedilol* (Carvedilol*) 6.25 Mg Tablet, 6.25 MG PO BID, #60 TAB 02/23/17 Omeprazole* (Omeprazole*) 40 Mg Capsule.dr, 40 MG PO DAILY, #30 CAP 02/23/17 Insulin Lispro (Humalog Kwikpen) 200 Unit/1 Ml Insuln.pen, 5 UNIT SQ AC MEALS, EA 02/23/17 Insulin Glargine,Hum.rec.anlog (Toujeo Solostar) 300 Unit/1 Ml Insuln.pen, 50-60 UNIT SQ BID 02/23/17 Linagliptin (TRADJENTA) 5 Mg Tablet, 5 MG PO DAILY, TAB 04/29/16 Triamterene-HCTZ (Dyazide) 37.5 - 25 Mg Cap, 1 CAP PO DAILY, CAP 04/29/16 Atorvastatin* (Atorvastatin*) 40 Mg Tablet, 40 MG PO DAILY 06/10/13 Aspirin Ec (Aspir 81) 81 Mg Tablet.dr, 81 MG PO DAILY 06/10/13 Discontinued Reported Medications Benazepril Hcl* (Benazepril Hcl*) 10 Mg Tablet, 10 MG PO DAILY, #30 TAB 04/29/16 Lorazepam* (Lorazepam*) 0.5 Mg Tablet, 0.5-1 MG PO QID PRN for ANXIETY, TAB 03/20/14 Allergies Allergies: Uncoded Allergies: bouganvilla extract (Allergy, Severe, rashes, 04/07/18) rashes all over the body PMhx/Soc History of Surgery: No Anesthesia Reaction: No Hx Neurological Disorder: No Hx Respiratory Disorders: No Hx Cardiac Disorders: Yes (HTN) Hx Psychiatric Problems: No Hx Miscellaneous Medical Probl: No Hx Alcohol Use: No Hx Substance Use: No Hx Tobacco Use: No Smoking Status: Never smoker FmHx Family History: No coronary disease Physical Exam Vitals Vital Signs Date Temp Pulse Resp B/P (MAP) Pulse Ox O2 O2 Flow FiO2 Time Delivery Rate 04/07/18 98.4 86 12 155/72 94 Room Air 23:42 (99) 04/07/18 98.4 97 17 194/101 97 Room Air 22:35 (132) 04/07/18 98.4 89 14 189/93 99 Room Air 21:49 (125) 04/07/18 98.8 92 24 210/93 98 20:25 (132) Physical Exam Const: Well-developed, well-nourished Head: Atraumatic, normocephalic Eyes: Normal Conjunctiva, PERRLA, EOMI, normal sclera, no nystagmus ENT: Normal External Ears, Nose and Mouth, moist mucus membranes. Neck: Full range of motion. No meningismus, no lymphadenopathy. Resp: Clear to auscultation bilaterally, no wheezing, rhonchi, rales Cardio: Regular rate and rhythm, no murmurs, S1 S2 present Abd: Soft, non tender x 4, non distended. Normal bowel sounds, no guarding or rebound, no pulsitile abdominal masses or bruits Skin: Diffuse red rash to his trunk arms and face Back: No midline or flank tenderness Ext: No cyanosis, or edema, FROM x 4, normal inspection, neurovascularly intact x 4 Neur: Awake and alert, STR 5/5 x 4, sensation intact x 4, no focal findings, cerebellum intact Psych: Normal Mood and Affect Results 24 hrs Current Medications Medications Dose Sig/Omid Start Time Status Last (Trade) Ordered Route PRN Stop Time Admin Dose Reason Admin 25 mg ONCE STAT 04/07/18 DC 04/07/18 Diphenhydrami IV 21:41 22:34 ne HCl 04/07/18 21:43 (Benadryl) Famotidine 20 mg ONCE STAT 04/07/18 DC 04/07/18 (Pepcid Iv) IV 21:41 21:41 04/07/18 21:43 125 mg ONCE STAT 04/07/18 DC 04/07/18 Methylprednis IV 21:41 22:34 olone Sodium 04/07/18 21:43 Succinate (Solu-Medrol) 1 mg ONCE STAT 04/07/18 DC 04/07/18 Hydromorphone IV 21:41 22:34 HCl 04/07/18 21:43 (Dilaudid) Ondansetron 4 mg ONCE STAT 04/07/18 DC 04/07/18 HCl (Zofran IV 21:41 22:34 Inj) 04/07/18 21:43 Nicardipine 30 mg ONCE ONCE 04/07/18 DC 04/07/18 HCl PO 22:00 22:34 (Cardene) 04/07/18 22:01 Procedures/MDM Ordering MD: BG OLIVEIRA DO Location: E/R Room/Bed: PROCEDURE: CT Brain without contrast. CLINICAL INDICATION: Headaches and hypertension. TECHNIQUE: A CT of the brain was performed on a GE 64-slice CT scanner utilizing axial imaging from the skull base through the vertex without intravenous contrast. Multiplanar reformatted images were made. One or more the following dose reduction techniques were utilized: Automated exposure control, adjustment of the mA/ or kV according to patient's size, or use of iterative reconstruction technique. DICOM images are available for review. The CTDIvol is 38.8 mGy and the DLP is 634.2 mGycm. COMPARISON: CT BRAIN 04/25/2013 FINDINGS: There is no intracranial hemorrhage, mass effect, or midline shift. No extra- axial fluid collection is seen. Mild atrophy is identified with compensatory ventricular and sulcal enlargement. Mild decreased attenuation is seen in the periventricular and deep white matter, compatible with microvascular ischemic disease. There is focal encephalomalacia and gliosis in the posterior left frontal lobe, unchanged and compatible with a chronic infarct. The womack white matter differentiation is otherwise well preserved with no acute infarct detected. The calvarium is intact. Chronic medial orbital wall fractures are seen. There is marked opacification of the ethmoid air cells. IMPRESSION: 1. No evidence of acute intracranial pathology. 2. Mild diffuse atrophy, slightly more pronounced. 3. There is mild microvascular ischemic disease in the periventricular and deep white matter, slightly more pronounced. 4. 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 RPTAT: HJAH .Maria Luisa Fuentes MD, MD Date Time Electronically viewed and signed by .Maria Luisa Fuentes MD, on 04/07/2018 22:50 .H/ CC: BG OLIVEIRA DO [id number] After Benadryl Solu-Medrol Pepcid his rash is better. Headache is also better. Blood pressure is better. Will discharge home with prednisone and Norvasc. Patient feels much better at this time, and vital signs are normal, symptoms have improved. I did give strict instructions to return to the ED if symptoms continue or worsen, patient will otherwise follow-up with primary care physician. Patient understood instructions and agreed to plan. Disclaimer: Inadvertent spelling and grammatical errors are likely due to EHR/dictation software use and do not reflect on the overall quality of patient care. Also, please note that the electronic time recorded on this note does not necessarily reflect the actual time of the patient encounter. Departure Diagnosis: Primary Impression: Allergic reaction Encounter type: initial encounter Qualified Codes: T78.40XA - Allergy, unspecified, initial encounter Additional Impression: Uncontrolled hypertension Condition: Stable Patient Instructions: Allergic Reaction, Drug, Hypertension, Established Referrals: DOCTOR,NOT ON STAFF (PCP) BG OLIVEIRA DO Apr 07, 2018 23:53
== END 2018-04-08 00:09 | disposition home or self-care (01) ==
LOC: E/R 20:23
DX: I10 Essential (primary) hypertension (principal); R21 Rash and other nonspecific skin eruption; E11.9 Type 2 diabetes mellitus without complications; R51 Headache; Z79.82 Long term (current) use of aspirin; Z79.4 Long term (current) use of insulin
CPT/HCPCS: 70450; J1170; J1200; J2405; J2930; 96374; 96375

== ENCOUNTER 2018-04-08 20:49 | Inpatient (IN) | payer MEDICARE, OTHER ==
[~2018-04-08] VITALS: Ht 157.5 cm; Wt 85.4 kg
[~2018-04-08 20:49] MED LIST changes: +AMLO-218 PO; -BENA10TA4 PO; +CLON-379 PO; +GLIM4TAB PO; +LISI2.5T59 PO; -LORA0.5T PO; +LORA1TAB PO; +PRED20TA PO
[2018-04-08] MEDS ORDERED: ASPIRIN 325 MG TAB PO STA (22:43)
[2018-04-08] MEDS ORDERED: hydrALAzine 20 MG INJ IV ONE (23:00)
[2018-04-08] MEDS: NITROGLYCERIN (SL) 0.4 MG TAB SL PRN ×2 (23:18→23:30)
[2018-04-08] MEDS ORDERED: ACETAMINOPHEN 500 MG TAB PO STA (23:43)
[2018-04-09] VITALS (66 sets, daily range): BP systolic 121–210; BP diastolic 69–104; PULSE 69–102; RESP 9–25; Ht 157.5 cm; Wt 85.4 kg
[2018-04-09] MEDS ORDERED: SOD CHLORIDE 0.9% 1,000 ML IV STA (00:07)
[2018-04-09] MEDS ORDERED: NA BICARBONATE 8.4% 50 ML SYG IV STA (00:07)
[2018-04-09] MEDS ORDERED: CA CHLORIDE 10% 10 ML SYRINGE IV STA (00:07)
[2018-04-09] MEDS ORDERED: DEXTROSE 50% 50 ML SYRINGE IV STA (00:07)
[2018-04-09] MEDS ORDERED: INSULIN REGULAR, HUMAN 100 UNIT/1 ML 3ML VIAL IVP STA (00:07)
[2018-04-09] MEDS ORDERED: morphine 4 MG/ML VIAL IV STA (00:48)
[2018-04-09] MEDS ORDERED: HEPARIN 25000 UNITS/250 ML 250 ML IV STA (01:06)
[2018-04-09] MEDS ORDERED: NITROGLYCERIN 50 MG/D5W (PMX) 250 ML IV STA (01:06)
[2018-04-09] MEDS ORDERED: ACETAMINOPHEN 325 MG TAB PO PRN (01:30)
[2018-04-09] MEDS ORDERED: ONDANSETRON 4 MG INJ IV PRN (01:30)
--- NOTE | 2018-04-09 01:55 | ERD ---
ER Documentation Chief Complaint Chief Complaint CP radiating to R arm "burning" X 1 hr HPI History limited from patient given the fact that he is an extremely poor historian and knows almost nothing about his medical conditions. This patient's history is obtained from his and daughter who are at bedside. This is a 62-year-old male with a history of hypertension, worsening renal function, CAD, and previous NC who presents to the ER today for evaluation of chest pain and a headache. The patient states he was here in the emergency room 2 days ago was diagnosed with allergic reaction. He states that he was discharged home and he is coming back today for evaluation of chest pain which he localizes to the center of it chest and describes as a sharp pain with radiation into the right arm. The patient denies any shortness of breath or diaphoresis or nausea or vomiting associated with this. He does state that he is having a headache as well ROS All systems reviewed and are negative except as per history of present illness. Medications Home Meds Active Scripts Amlodipine Besylate* (Norvasc*) 10 Mg Tablet, 10 MG PO DAILY, #30 TAB Prov:BG OLIVEIRA DO 04/07/18 Prednisone* (Prednisone*) 20 Mg Tab, 60 MG PO DAILY for 4 Days, TAB Prov:BG OLIVEIRA DO 04/07/18 Amlodipine Besylate* (Amlodipine Besylate*) 10 Mg Tablet, 10 MG PO DAILY, #60 TAB Prov:ALEX CASTRO 05/02/16 Nitroglycerin* (Nitroglycerin* SL) 0.4 Mg Tab.subl, 0.4 MG SL Q5MIN PRN for CHEST PAIN, #30 BOTTLE Prov:GONZALEZ PEÑA 03/22/14 Reported Medications Lorazepam* (Lorazepam*) 1 Mg Tablet, 1 MG PO Q6 PRN for ANXIETY, #60 TAB 04/07/18 Clonidine Hcl* (Clonidine Hcl*) 0.1 Mg Tab, 0.1 MG PO Q8, TAB 04/07/18 Glimepiride* (Glimepiride*) 4 Mg Tablet, 4 MG PO WITH BREAKFAST DINNE, TAB 04/07/18 Lisinopril* (Lisinopril*) 2.5 Mg Tablet, 2.5 MG PO DAILY, #30 TAB 04/07/18 Carvedilol* (Carvedilol*) 6.25 Mg Tablet, 6.25 MG PO BID, #60 TAB 02/23/17 Omeprazole* (Omeprazole*) 40 Mg Capsule.dr, 40 MG PO DAILY, #30 CAP 02/23/17 Insulin Lispro (Humalog Kwikpen) 200 Unit/1 Ml Insuln.pen, 5 UNIT SQ AC MEALS, EA 02/23/17 Insulin Glargine,Hum.rec.anlog (Toujeo Solostar) 300 Unit/1 Ml Insuln.pen, 50-60 UNIT SQ BID 02/23/17 Linagliptin (TRADJENTA) 5 Mg Tablet, 5 MG PO DAILY, TAB 04/29/16 Triamterene-HCTZ (Dyazide) 37.5 - 25 Mg Cap, 1 CAP PO DAILY, CAP 04/29/16 Atorvastatin* (Atorvastatin*) 40 Mg Tablet, 40 MG PO DAILY 06/10/13 Aspirin Ec (Aspir 81) 81 Mg Tablet.dr, 81 MG PO DAILY 06/10/13 Discontinued Reported Medications Benazepril Hcl* (Benazepril Hcl*) 10 Mg Tablet, 10 MG PO DAILY, #30 TAB 04/29/16 Lorazepam* (Lorazepam*) 0.5 Mg Tablet, 0.5-1 MG PO QID PRN for ANXIETY, TAB 03/20/14 Allergies Allergies: Uncoded Allergies: bouganvilla extract (Allergy, Severe, rashes, 04/07/18) rashes all over the body PMhx/Soc History of Surgery: Yes (open heart 2011) Anesthesia Reaction: No Hx Neurological Disorder: No Hx Respiratory Disorders: No Hx Cardiac Disorders: Yes (HTN) Hx Psychiatric Problems: No Hx Miscellaneous Medical Probl: Yes (DM) Hx Alcohol Use: No Hx Substance Use: No Hx Tobacco Use: No Smoking Status: Never smoker Physical Exam Vitals Vital Signs Date Temp Pulse Resp B/P (MAP) Pulse Ox O2 O2 Flow FiO2 Time Delivery Rate 04/09/18 104 16 155/69 93 Room Air 01:36 (97) 04/08/18 100 18 136/75 96 Room Air 23:41 (95) 04/08/18 99 20 136/75 100 Room Air 23:28 (95) 04/08/18 99 19 204/100 99 Room Air 22:40 (134) 04/08/18 97.2 103 18 196/94 97 21:00 (128) Physical Exam INITIAL VITAL SIGNS: Reviewed by me GENERAL: The patient is well developed and appropriate for usual state of health in no apparent distress HEENT: Pupils equal, round, and reactive to light. EOMI. There is no scleral icterus. NECK: C-spine is soft and supple, there is no meningismus. There is no cervical lymphadenopathy. LUNGS: Clear to auscultation bilaterally. There are no rales, wheezes or rhonchi. HEART: Regular rate and rhythm, no murmurs, clicks, rubs or gallops. ABDOMEN: Soft, non-tender, non-distended. There are bowel sounds in all four quadrants. No rebound or guarding. EXTREMITIES: There is no peripheral cyanosis or edema. No focal swelling or erythema. NEUROLOGICAL: The patient moves all four extremities with 5/5 strength. C ranial nerves II - XII are intact. Normal gait. Alert and oriented SKIN: There is no apparent rash or petechiae. HEME/LYMPHATIC: There is no evidence of excessive bruising or lymphedema. PSYCHIATRIC: The patient does not appear anxious or depressed. Result Diagram: 04/08/18 2310 04/09/18 0103 Results 24 hrs Laboratory Tests Test 04/08/18 23:10 04/09/18 00:20 04/09/18 01:03 04/09/18 01:09 White Blood 9.0 10^3/ul Count Red Blood Count 4.15 10^6/ul Hemoglobin 11.7 g/dl Hematocrit 35.7 % Mean Corpuscular 86.0 fl Volume Mean Corpuscular 28.2 pg Hemoglobin Mean Corpuscular 32.8 g/dl Hemoglobin Ruma nt Red Cell 13.1 % Distribution Width Platelet Count 212 10^3/UL Mean Platelet 10.4 fl Volume Immature 0.400 % Granulocytes % Neutrophils % 90.1 % Lymphocytes % 6.1 % Monocytes % 3.3 % Eosinophils % 0.0 % Basophils % 0.1 % Nucleated Red 0.0 /100WBC Blood Cells % Immature 0.040 10^3/ul Granulocytes # Neutrophils # 8.1 10^3/ul Lymphocytes # 0.6 10^3/ul Monocytes # 0.3 10^3/ul Eosinophils # 0.0 10^3/ul Basophils # 0.0 10^3/ul Nucleated Red 0.0 10^3/ul Blood Cells # Prothrombin Time 14.5 Sec Prothrombin Time 1.1 Ratio INR 1.12 International Normalized Ratio Activated 30.6 Sec Partial Thrombop last Time Sodium Level 137 mmol/L 140 mmol/L Potassium Level 6.6 mmol/L 4.8 mmol/L Chloride Level 104 mmol/L 110 mmol/L Carbon Dioxide 14 mmol/L 15 mmol/L Level Anion Gap 19 15 Blood Urea 47 mg/dl 47 mg/dl Nitrogen Creatinine 2.90 mg/dl 2.73 mg/dl Est Glomerular 22 mL/min 24 mL/min Filtrat Rate mL/min Glucose Level 512 mg/dl 366 mg/dl Calcium Level 8.2 mg/dl 10.0 mg/dl Total Bilirubin 0.0 mg/dl Direct Bilirubin 0.00 mg/dl Indirect 0.0 mg/dl Bilirubin Aspartate Amino 19 IU/L Transf (AST/SGOT ) Alanine 25 IU/L Aminotransferase (ALT/SGPT) Alkaline 98 IU/L Phosphatase Troponin I < 0.012 ng/ml < 0.012 ng/ml B-Type 999 PG/ML Natriuretic Peptide Total Protein 7.3 g/dl Albumin 4.0 g/dl Globulin 3.30 g/dl Albumin/Globulin 1.21 Ratio Urine Color STRAW Urine Clarity CLEAR Urine pH 5.0 Urine Specific 1.015 [place] Urine Ketones NEGATIVE mg/dL Urine Nitrite NEGATIVE mg/dL Urine Bilirubin NEGATIVE mg/dL Urine NEGATIVE mg/dL Urobilinogen Urine Leukocyte NEGATIVE Nicolasa/ul Esterase Urine 0 /HPF Microscopic RBC Urine 0 /HPF Microscopic WBC Urine Hemoglobin 1+ mg/dL Urine Glucose 3+ mg/dL Urine Total 1+ mg/dl Protein Bedside Glucose 349 mg/dL Current Medications Medications Dose Sig/Omid Start Time Status Last (Trade) Ordered Route PRN Stop Time Admin Dose Reason Admin Aspirin 325 mg ONCE STAT 04/08/18 DC 04/08/18 (Aspirin) PO 22:43 23:18 04/08/18 22:45 1 tab Q5M UP TO 3 04/08/18 04/08/18 Nitroglycerin DOSES PRN 23:00 23:30 SL .CHEST (Nitroglyceri PAIN n (Sl Tab) 0.4 Mg) Hydralazine 10 mg ONCE ONCE 04/08/18 DC 04/08/18 HCl IV 23:00 23:18 (Apresoline) 1/25/19 23:01 1,000 mg ONCE STAT 04/08/18 DC Acetaminophen PO 23:43 (Tylenol 04/08/18 23:44 Tab) Sodium 50 ml ONCE STAT 04/09/18 DC 04/09/18 Bicarbonate IV 00:07 00:40 (Na Bicarb 04/09/18 00:09 8.4% Syg) Sodium 1,000 ml @ Q1H STAT 04/09/18 DC 04/09/18 Chloride 1,000 mls/hr IV 00:07 00:37 04/09/18 01:06 Calcium 1,000 mg ONCE STAT 04/09/18 DC 04/09/18 Chloride IV 00:07 00:30 (Ca Chloride 04/09/18 00:09 10% Syg) Insulin 10 unit ONCE STAT 04/09/18 DC 04/09/18 Human IVP 00:07 00:35 Regular 04/09/18 00:09 (Humulin R) Dextrose ONCE STAT 04/09/18 DC (D50w IV 00:07 Syringe) 04/09/18 00:09 Morphine 4 mg ONCE STAT 04/09/18 DC 04/09/18 Sulfate IV 00:48 00:53 (morphine) 04/09/18 00:49 250 ml @ 6 ONCE STAT 04/09/18 Nitroglycerin mls/hr IV 01:06 / Dextrose 04/10/18 18:45 Heparin 250 ml @ 0 ONCE STAT 04/09/18 DC 04/09/18 Sodium mls/hr IV 01:06 01:29 (Porcine) 04/09/18 01:08 Ondansetron 4 mg ER BRIDGE 04/09/18 HCl (Zofran PRN IV 01:30 Inj) NAUSEA/VOMITI 04/10/18 01:29 NG 650 mg ER BRIDGE 04/09/18 Acetaminophen PRN PO 01:30 (Tylenol .MILD PAIN 04/10/18 01:29 Tab) 1-3 OR TEMP Procedures/MDM EKG: #1 Rate/Rhythm: Sinus tachycardia QRS, ST, T-waves: incomplete right bundle branch block Impression: Sinus tachycardia with incomplete right bundle branch block EKG: #2 Rate/Rhythm: [Normal Sinus Rhythm] QRS, ST, T-waves: Incomplete right bundle branch block Impression: Normal sinus rhythm with incomplete right bundle branch block EKG: #3 Rate/Rhythm: Sinus tachycardia QRS, ST, T-waves: Incomplete right bundle branch block with ST and T wave abnormalities in the anterior lateral leads Impression: ST and T wave abnormalities in anterior lateral leads EKG: #4 Rate/Rhythm: Sinus tachycardia QRS, ST, T-waves: Incomplete right bundle branch block with nonspecific ST and T wave abnormalities in the anterior leads Impression: Incomplete right bundle branch block with ST and T wave abnormalities in the anterior leads EKG: #5 Rate/Rhythm: Sinus tachycardia QRS, ST, T-waves: incomplete right bundle branch block with ST and T wave abnormalities in anterior leads Impression: Incomplete right bundle branch block with ST and T wave abnormalities in the anterior leads Chest X-ray 1V Interpreted by me: Soft Tissue: No acute abnormalities Bones: No acute abnormalities Mediastinum/Cardiac Silhouette/Lungs: [No acute abnormalities] This 62-year-old male presents to the ER for evaluation of chest pain. On evaluation this patient did have a systolic blood pressure greater than 200. The patient was hooked up to a monitor and IV line was established. I did give this patient 10 mg of hydralazine. Lab work was ordered, and lab work does demonstrate hyperkalemia with a potassium of 6.6. This patient's creatinine is greater than 2 and his glucose level was 512. His anion gap was slightly elevated CO2 level was 15 however he was not spilling ketones in the urine. The patient was immediately given bicarb, insulin, calcium. He continued to have chest pain and was given morphine however he continued to have chest pain after the morphine and nitroglycerin. Serial EKGs do show some ischemic changes and I did contact our [employer] worker dental front office assistant Dr. Greenfield. This patient's chest pain did improve after receiving morphine, nitro, and aspirin. And on my reevaluation he does state his chest pain is currently 4 out of 10. His initial troponin is negative, and repeat troponin is also undetectable. His repeat electrolyte panel does show a potassium level of 4.8, and glucose level which is improving. Given the fact that the patient currently has 4 out of 10 chest pain is likely suffering from unstable angina and will be placed on a heparin and nitro drip. The patient will be admitted to the intensive care unit at this time. He is remained hemodynamically stable and will be admitted to our panel physician Dr. Duane Critical Care: Excluding all billable procedures Time: 79 minutes Treatments/Evaluations: Close monitoring and treatment of unstable vital signs, cardiorespiratory, and neurologic status, while maintaining tight balance of fluid, respiratory, and cardiac interventions. Departure Diagnosis: Primary Impression: Hyperkalemia Additional Impressions: Unstable angina Acute kidney injury Metabolic acidosis Uncontrolled type 2 diabetes mellitus Condition: Serious VIKA LAUGHLIN DO Apr 09, 2018 01:55
--- NOTE | 2018-04-09 02:18 | HP ---
Date/Time of Note Date/Time of Note DATE: 04/09/18 TIME: 02:17 Assessment/Plan VTE Prophylaxis SCD applied (from Nsg): Yes Pharmacological prophylaxis: heparin Lines/Catheters IV Catheter Type (from Nrsg): Saline Lock Assessment/Plan Hospital Course This is a 62-year-old male being admitted to the ICU floor for: #1 chest pain: Concern for ACS versus ACS equivalent. Patient has active chest pain which did result in improvement once patient was started on nitro drip. ST depressions were noted on the EKG as well as an ST elevation in aVR. These were consistent through serial EKGs with the final EKG showing some improvement in the depressions and the ST elevation in aVR after patient's blood pressure and p ain were better controlled with nitro drip. Patient was given aspirin 325 mg p.o. At the current time will transfer the patient to the ICU for close monitoring, trend cardiac enzymes, the first set was negative, continue nitro drip, heparin drip was also initiated in the ED will continue this at the current time given concern for non-STEMI. Repeat EKG in the a.m. consult cardiology. Echocardiogram in the a.m. #2 hypertensive emergency: Patient systolic blood pressure was noted to be in the 200s along with active chest pain. Initiated on nitro drip which has resulted in improvement of the blood pressures as well as patient's pain. Continue beta-blockade. Optimize patient's blood pressures during patient's clinical course. #3 hyperkalemia: Multifactorial secondary likely to uncontrolled blood sugars, SATISH inhibitor, underlying chronic kidney disease. Patient was treated with insulin and calcium chloride in the ED. Which did result in improvement of the potassium to 4.8. Will check serial BMPs. Consult nephrology Dr. Solis who has seen the patient in the past. #4 Nonoliguric acute on chronic kidney disease: Previous creatinine in 2017 was 2.31 today it is 2.9. This is likely multifactorial secondary hemodynamics, SATISH inhibitor use, underlying chronic kidney disease, versus other. Avoid nephrotoxic agents, avoid NSAIDs. Gentle hydration at the current time while being mindful of patient's elevated blood pressures. Renal ultrasound, urine microscope, protein creatinine ratio, urinalysis. #5 metabolic acidosis: Likely multifactorial secondary to underlying chronic kidney disease, elevated blood sugars. There are no ketones in the urine making DKA less likely. Patient did receive a dose of sodium bicarbonate. Will monitor closely. Further management as per nephro. #6 severe hyperglycemia: Blood sugars 500+, no ketones in the urine. Initiate long-acting insulin, insulin sliding scale. Monitor closely. Consider insulin GTT. will check A1c. #7 normocytic anemia: Possibly secondary to underlying chronic kidney disease, we will check iron stores, further management as per nephro no signs of acute bleeding. #8 coronary artery disease: history of MS and CABG. Continue aspirin, statin, beta-phillip #9 diabetes mellitus: Check hemoglobin A1c, resume patient's home insulin regimen, insulin sliding scale, optimize home regimen. #10 hyperlipidemia: Continue statin check lipid panels #11 hypertension: Continue amlodipine, beta-phillip, will hold combination HCTZtriamterene given patient's electrolyte imbalance. #12 DVT GI prophylaxis: Heparin, Protonix Further treatment strategy will be implemented as per the clinical course Greater than 45 minutes of critical care time was spent in care management this patient. Result Diagram: 04/08/18 2310 04/09/18 0103 Results 24hrs Laboratory Tests Test 04/08/18 23:10 04/09/18 00:20 04/09/18 01:03 04/09/18 01:09 White Blood Count 9.0 # Red Blood Count 4.15 L Hemoglobin 11.7 L Hematocrit 35.7 L Mean Corpuscular 86.0 Volume Mean Corpuscular 28.2 L Hemoglobin Mean Corpuscular 32.8 Hemoglobin Concent Red Cell 13.1 Distribution Width Platelet Count 212 Mean Platelet Volume 10.4 # Immature 0.400 Granulocytes % Neutrophils % 90.1 H Lymphocytes % 6.1 L Monocytes % 3.3 Eosinophils % 0.0 Basophils % 0.1 Nucleated Red Blood 0.0 Cells % Immature 0.040 H Granulocytes # Neutrophils # 8.1 H Lymphocytes # 0.6 L Monocytes # 0.3 Eosinophils # 0.0 Basophils # 0.0 Nucleated Red Blood 0.0 Cells # Prothrombin Time 14.5 Prothrombin Time 1.1 Ratio INR International 1.12 Normalized Ratio Activated 30.6 Partial Thromboplast Time Sodium Level 137 140 Potassium Level 6.6 *H 4.8 Chloride Level 104 110 Carbon Dioxide Level 14 L 15 L Anion Gap 19 H 15 H Blood Urea Nitrogen 47 H 47 H Creatinine 2.90 H 2.73 H Est Glomerular 22 L 24 L Filtrat Rate mL/min Glucose Level 512 *H 366 H Calcium Level 8.2 L 10.0 Total Bilirubin 0.0 L Direct Bilirubin 0.00 Indirect Bilirubin 0.0 Aspartate Amino 19 Transf (AST/SGOT) Alanine 25 Aminotransferase (AL T/SGPT) Alkaline Phosphatase 98 Troponin I < 0.012 < 0.012 B-Type Natriuretic 999 H Peptide Total Protein 7.3 Albumin 4.0 Globulin 3.30 H Albumin/Globulin 1.21 Ratio Urine Color STRAW Urine Clarity CLEAR Urine pH 5.0 Urine Specific 1.015 [place] Urine Ketones NEGATIVE Urine Nitrite NEGATIVE Urine Bilirubin NEGATIVE Urine Urobilinogen NEGATIVE Urine Leukocyte NEGATIVE Esterase Urine Microscopic 0 RBC Urine Microscopic 0 WBC Urine Hemoglobin 1+ H Urine Glucose 3+ H Urine Total Protein 1+ H Bedside Glucose 349 H HPI/ROS Admit Date/Time Admit Date/Time Hx of Present Illness Chief complaint: Chest pain The following history was obtained from the ED physician documentation as well as the family from the bedside as patient was not able to provide a proper history. This is a 62-year-old male with a history of hypertension, worsening renal function, CAD, and previous MS status post CABG who presents to the ER today for evaluation of chest pain and a headache. The patient states he was here in the emergency room 2 days ago was diagnosed with allergic reaction after taking some medications for cough from [place]. He reports that he was going to go out to dinner with his family when he saw all of a sudden started experiencing left- sided chest pain at approximately 6 PM going up to his left jaw as well as left arm. He denied any shortness of breath or lower extremity swelling or diaphoresis. Denies any vomiting. Patient was noted to be in hypertensive emergency with systolic rate in the 200s. He also was noted to be hyperkalemic with a potassium of 6.6 which was treated with calcium chloride and insulin in the ED. He also was noted to have elevated blood sugars in the 500s however he did not have ketones in the urine so DKA was thought to be less likely. Initial EKGs were concerning for ACS type event as he had noted ST depressions as well as an ST elevation in lead aVR. Serial EKGs were run by the ED physician which did showed possible evolution and at this point I reviewed the EKGs with the ED physician and the decis ion was made to c consult cardiology for further recommendations. Stemi chief i dispatcher production line was called for further evaluation and it was determined that at the current time patient was not a candidate for emergent Pelletizer given that the EKG findings were not consistent with acute STEMI and the fact that he had negative troponin. Patient was started on a nitro drip which did subsequently improve the patient's chest pain as well as help with the patient's blood pressure. 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 Patient also did receive aspirin 325 mg. Allergies: Boganvilla extract Medications: See JOZEF TRAN Const: As per HPI Eyes : No pain discharge or redness or change in visual acuity ENT: No pain, sore throat, congestion, congestion, dysphagia or discharge Respiratory: No shortness of breath, cough, sputum, wheezing, or pleuritic pain Cardiovascular: As per HPI GI : no change in appetite, abdominal pain, nausea, vomiting, diarrhea, constipation, or change in the color his stool Genitourinary: No dysuria, hematuria, flank pain , discharge or CVA tenderness Musculoskeletal: No joint pain, back pain, neck pain, restricted range of motion in neck or joints Skin: No rash, bruising or hives Neuro: No headache, dizziness, syncope, seizure, focal weakness Endocrine: No polyuria, polydipsia, temperature intolerance Psych: No hallucination, depression, anxiety or suicidal ideation PMH/Family/Social Past Medical History Coronary artery disease, history of MS status post CABG, chronic kidney disease stage unknown, diabetes mellitus, hypertension, hyperlipidemia Medications Current Medications Nitroglycerin (Nitroglycerin (Sl Tab) 0.4 Mg) 1 tab Q5M UP TO 3 DOSES PRN SL .CHEST PAIN Last administered on 04/08/18at 23:30; Admin Dose 1 TAB; Start 04/08/18 at 23:00 Nitroglycerin/ Dextrose 250 ml @ 6 mls/hr ONCE STAT IV ; Start 04/09/18 at 01:06; Stop 04/10/18 at 18:45 Ondansetron HCl (Zofran Inj) 4 mg ER BRIDGE PRN IV NAUSEA/VOMITING; Start 04/09/18 at 01:30; Stop 04/10/18 at 01:29 Acetaminophen (Tylenol Tab) 650 mg ER BRIDGE PRN PO .MILD PAIN 1-3 OR TEMP; Start 04/09/18 at 01:30; Stop 04/10/18 at 01:29 Sodium Chloride 1,000 ml @ 50 mls/hr Q20H IV ; Start 04/09/18 at 02:30 Uncoded Allergies: bouganvilla extract (Allergy, Severe, rashes, 04/07/18) rashes all over the body Past Surgical History CABG Past Surgical Hx: coronary bypass surgery Family History Significant Family History: no pertinent family hx Social History Patient is a former smoker and former drinker Smoking Status: Never smoker Exam/Review of Systems Vital Signs Vitals Vital Signs Date Temp Pulse Resp B/P (MAP) Pulse Ox O2 O2 Flow FiO2 Time Delivery Rate 04/09/18 104 16 155/69 93 Room Air 01:36 (97) 04/08/18 97.2 21:00 Exam Exam General: Patient currently lying in bed in moderate distress from chest pain and neck pain, he does appear anxious as well HEENT: Atraumatic, normocephalic. The pupils are equal, round and reactive. Extraocular motor are intact Neck: Supple with full range of motion. No rigidity or meningismus Chest: Nontender to palpation Lungs: Clear to auscultation bilaterally no crackles rales or wheezing Heart: Sinus tachycardia Abdomen: Soft , nontender, nondistended , bowel sounds are present. No guarding no rebound tenderness , No masses or organomegaly. No costovertebral temporal angle mass Extremities: Normal to inspection, no edema no cyanosis Neurologic: Normal mental status, speech normal, cranial nerves II through XII are intact, motor and sensory are intact, Additional Comments PROCEDURE: XR chest. CLINICAL INDICATION: Chest pain TECHNIQUE: A single portable view of the chest was obtained. COMPARISON: 04/29/2016 FINDINGS: Heart size is at the upper limits of normal. The aortic arch is mildly atheros clerotic. There is no pneumothorax or pleural effusion. There is no focal pulmonic consolidation. Median sternotomy wires are again seen. The second wire from the top is broken. IMPRESSION: 1. No acute pulmonary abnormality. 2. Aortic atherosclerosis. 3. Broken sternotomy wire. RPTAT:HAJM Physician Trinh Date Time Electronically viewed and signed by Arnie Perez Physician on 04/09/2018 00:32 RM/ CC: VIKA LAUGHLIN DO [id number] EKG: #1 Rate/Rhythm: Sinus tachycardia QRS, ST, T-waves: incomplete right bundle branch block Impression: Sinus tachycardia with incomplete right bundle branch block EKG: #2 Rate/Rhythm: [Normal Sinus Rhythm] QRS, ST, T-waves: Incomplete right bundle branch block Impression: Normal sinus rhythm with incomplete right bundle branch block EKG: #3 Rate/Rhythm: Sinus tachycardia QRS, ST, T-waves: Incomplete right bundle branch block with ST and T wave abnormalities in the anterior lateral leads Impression: ST and T wave abnormalities in anterior lateral leads EKG: #4 Rate/Rhythm: Sinus tachycardia QRS, ST, T-waves: Incomplete right bundle branch block with nonspecific ST and T wave abnormalities in the anterior leads Impression: Incomplete right bundle branch block with ST and T wave abnormalities in the anterior leads EKG: #5 Rate/Rhythm: Sinus tachycardia QRS, ST, T-waves: incomplete right bundle branch block with ST and T wave abn ormalities in anterior leads Impression: Incomplete right bundle branch block with ST and T wave ab normalities in the anterior leads TONY PONCE Apr 09, 2018 02:18
[2018-04-09] MEDS ORDERED: DEXTROSE 50% 50 ML SYRINGE IV PRN ×2 (02:30)
[2018-04-09] MEDS ORDERED: GLUCOSE GEL 15 GRAM TUBE BUCCAL PRN (02:30)
[2018-04-09] MEDS ORDERED: GLUCAGON 1 MG INJ IM PRN (02:30)
[2018-04-09] MEDS ORDERED: GLUCOSE GEL 15 GRAM TUBE PO PRN ×2 (02:30)
[2018-04-09] MEDS: INSULIN ASPART [NOVOLOG] 3 ML PEN SC SCH ×7 (06:33→20:21)
[2018-04-09] MEDS ORDERED: LORAZEPAM 1 MG TAB PO PRN (07:00)
[2018-04-09] MEDS ORDERED: HEPARIN 1000 UNITS/ML 10 ML INJ IV SCH (07:00)
[2018-04-09] MEDS: PANTOPRAZOLE (EC) 40 MG TAB PO SCH (07:59)
--- NOTE | 2018-04-09 08:13 | NUR ---
EOSS Patient arrived at the unit from ED with with SOB and Chest pain, with Nitro drip running at 20 and heparin drip running at 864units/hr. Patient only came with one peripheral IV, 3 different [address] attempted to place another line; unsuccessful. Patient No longer c/o chest pain or SOB, and currently sat'ing >95% on room air. Patient on bedrest, with urine output in urinal with a total of 820cc this shift, no BM; pt currently NPO. All needs were tended to, care plans updated and completed
--- NOTE | 2018-04-09 08:16 | CONS ---
DATE OF ADMISSION: 04/09/2018 DATE OF CONSULTATION: 04/09/2018 TYPE OF CONSULTATION: Nephrology. REASON FOR CONSULTATION: Acute kidney injury, hyperkalemia. PHYSICIAN REQUESTING CONSULT: John Ponce MD HISTORY OF PRESENT ILLNESS: This is a 62-year-old male with a past medical history of chronic kidney disease with an unknown baseline creatinine, history of diabetes, history of hypertension, history o f dyslipidemia, history of coronary artery disease, history of coronary artery bypass graft who prese nts to the [facility] with complaints of chest pain and radiation and burning to his right arm. The patient stated he apparently had an allergic reaction 2 days prior to admission where he had a brief visit to the emergency room. The patient was sent home and then started develo ping chest pain 2 hours before arrival to the emergency room. Upon arrival, patient had laboratory d milagros drawn, which showed findings of BUN 27, creatinine 2.73. Glucose level 366. The patient in the emergency room was given aspirin, nitroglycerin, placed on a heparin drip and admitted to intensive c are unit. The patient's initial troponin was noted to be elevated. 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 The patient's family does not r emember his name. The patient is unaware of his baseline renal function. He denies any recent episo ebony of hemoptysis, hematemesis or hematochezia. PAST MEDICAL HISTORY: See above, history of diabetes, hypertension, chronic kidney disease, history of coronary artery disease, history of dyslipidemia. PAST SURGICAL HISTORY: Status post CABG. FAMILY HISTORY: No family history of kidney disease. SOCIAL HISTORY: Does not drink, smoke, do drugs. MEDICATIONS: The patient's medications have been reviewed. ALLERGIES: PLEASE SEE LIST. REVIEW OF SYSTEMS: A 14-point review of systems conducted. Pertinent positives stated in HPI, other arnold negative. PHYSICAL EXAMINATION: VITAL SIGNS: Blood pressure is 159/92, respiration 14, pulse 93, temperature 98.6. HEENT: Head is normocephalic. NECK: Supple. HEART: Regular rate. LUNGS: Show diminished breath sounds at the base. ABDOMEN: Soft, nontender to palpation without rebound or guarding. EXTREMITIES: Negative for clubbing, cyanosis, no edema. DERMATOLOGIC: No rashes. MUSCULOSKELETAL: No joint effusion. NEUROLOGIC: No change in exam. MEDICATIONS: The patient's medications have been reviewed. LABORATORY DATA: Shows sodium 139, potassium 5.7, BUN 44, creatinine 2.54, glucose 310. Hemoglobin A1c 9.0. White count 9.9, hemoglobin 11.0, platelet count is 192. IMAGING STUDIES: Reviewed. ASSESSMENT AND PLAN: This is a 62-year-old male who presents with: 1. Nonoliguric acute kidney injury on top of chronic kidney disease with unknown baseline creatinine . Etiology of acute kidney injury is multifactorial secondary to hemodynamics, SATISH inhibitor Effect. Lower suspicion for acute glomerulonephritis, vasculitis or tubular injury given the patient's urin alysis shows bland sediment. Patient's renal function has slowly been improving with supportive care . Recommendation would be to continue current treatment plan. Continue to renally dose all meds, av oid nephrotoxins. Defer SATISH inhibitor or ARB at this time. Avoid hemodynamic fluctuations. Monitor closely. Continue gentle IV hydration. 2. Hyperkalemia. Etiology is multifactorial secondary to acute kidney injury, chronic kidney diseas e, hypoglycemia. Would recommend to obtain euglycemia, which will help shift potassium levels intrac ellularly. We will continue the patient on a renal diet. We will monitor potassium levels closely. If levels do not improve euglycemic control would add Kayexalate. Please note that patient's metabo lic acidosis may be a contributing factor. Will check an ABG to see if there is active acidemia. 3. Anemia. Monitor hemoglobin and hematocrit levels. 4. Mineral bone disorder, monitor calcium and phosphatase levels. 5. Chest pain, possible non-ST elevation myocardial infarction type 2. The patient's troponins are noted to be elevated. Continue medical management. Continue heparin drip, statin therapy, aspirin. Follow up with cardiology. 6. Hypertension. Continue current blood pressure regimen. 7. Metabolic acidosis. Etiology is likely secondary to acute kidney injury, chronic kidney disease. Plan is to check an ABG to see if patient is appropriately compensated. Will continue to monitor. 8. Diabetes with markedly elevated glucose levels. Continue insulin. Continue Accu-Cheks. 9. Coronary artery disease with history of coronary artery bypass graft. Continue medical managemen t. 10. Continue statin therapy: Thank you, Dr. Ponce, for this interesting consult. It will be a pleasure to follow patient with aminah dixon throughout the hospital course. Please note I spent over 30 minutes of critical care time with this patient. Dictated By: JEWELL CHENEY DO NR/DAVID Conf#: [id number] DID#: [id number] CC: JOHN PONCE MD;*EndCC*
[2018-04-09] MEDS ORDERED: TRIAMTERENE/HCTZ (37.5-25) CAP PO SCH (09:00)
[2018-04-09] MEDS ORDERED: NON-FORMULARY/PATIENT OWN MED (Omeprazole* 40 MG) PO SCH (09:00)
[2018-04-09] MEDS: SOD CHLORIDE 0.9% 1,000 ML IV SCH ×2 (09:12→11:06)
[2018-04-09] MEDS: ASPIRIN (EC) 81 MG TAB PO SCH (09:14)
[2018-04-09] MEDS: ATORVASTATIN 40 MG TAB PO SCH (09:15)
[2018-04-09] MEDS: AMLODIPINE 10 MG TAB PO SCH (09:15)
[2018-04-09] MEDS: HEPARIN 25000 UNITS/250 ML 250 ML IV SCH (09:22)
--- NOTE | 2018-04-09 09:35 | CONS ---
Assessment/Plan Assessment/Plan Assessment/Plan (Daily) NSEMI WITH INFEROLATERAL ST DEPRESIONS HTN OOC AKD/CKD CABG HYPERKALEMIA HLP DM -The aptient wtih hx of CABG, nstemi with inferolateral st dpressions, but currently asymptomatic -possible cath once renal fucntion improves, hyperkalemia resolves - no urgency as pateint asymptomatic -continue cv meds - on heparin gtt > d/c in 48 hours, off ntg drip, no acei due to ckd, will rx statin -ivf #1 chest pain: Concern for ACS versus ACS equivalent. Patient has active chest pain which did result in improvement once patient was started on nitro drip. ST depressions were noted on the EKG as well as an ST elevation in aVR. These were consistent through serial EKGs with the final EKG showing some improvement in the depressions and the ST elevation in aVR after patient's blood pressure and pain were better controlled with nitro drip. Patient was given aspirin 325 mg p.o. At the current time will transfer the patient to the ICU for close monitoring, trend cardiac enzymes, the first set was negative, continue nitro drip, heparin drip was also initiated in the ED will continue this at the current time given concern for non-STEMI. Repeat EKG in the a.m. consult cardiology. Echocardiogram in the a.m. #2 hypertensive emergency: Patient systolic blood pressure was noted to be in the 200s along with active chest pain. Initiated on nitro drip which has resulted in improvement of the blood pressures as well as patient's pain. Continue beta-blockade. Optimize patient's blood pressures during patient's clinical course. #3 hyperkalemia: Multifactorial secondary likely to uncontrolled blood sugars, SATISH inhibitor, underlying chronic kidney disease. Patient was treated with insulin and calcium chloride in the ED. Which did result in improvement of the potassium to 4.8. Will check serial BMPs. Consult nephrology Dr. Solis who has seen the patient in the past. #4 Nonoliguric acute on chronic kidney disease: Previous creatinine in 2017 was 2.31 today it is 2.9. This is likely multifactorial secondary hemodynamics, SATISH inhibitor use, underlying chronic kidney disease, versus other. Avoid nephrotoxic agents, avoid NSAIDs. Gentle hydration at the current time while being mindful of patient's elevated blood pressures. Renal ultrasound, urine microscope, protein creatinine ratio, urinalysis. #5 metabolic acidosis: Likely multifactorial secondary to underlying chronic kidney disease, elevated blood sugars. There are no ketones in the urine making DKA less likely. Patient did receive a dose of sodium bicarbonate. Will monitor closely. Further management as per nephro. #6 severe hyperglycemia: Blood sugars 500+, no ketones in the urine. Initiate long-acting insulin, insulin sliding scale. Monitor closely. Consider insulin GTT. will check A1c. #7 normocytic anemia: Possibly secondary to underlying chronic kidney disease, we will check iron stores, further management as per nephro no signs of acute bleeding. #8 coronary artery disease: history of NE and CABG. Continue aspirin, statin, beta-phillip #9 diabetes mellitus: Check hemoglobin A1c, resume patient's home insulin regimen, insulin sliding scale, optimize home regimen. #10 hyperlipidemia: Continue statin check lipid panels #11 hypertension: Continue amlodipine, beta-phillip, will hold combination HCTZtriamterene given patient's electrolyte imbalance. Consultation Date/Type/Reason Admit Date/Time Type of Consult Cardiology Date/Time of Note DATE: 04/09/18 TIME: 09:28 Hx of Present Illness This is a 62-year-old male with a history of hypertension, worsening renal function, CAD, and previous NE status post CABG who presents to the ER today for evaluation of chest pain and a headache. The patient states he was here in the emergency room 2 days ago was diagnosed with allergic reaction after taking some medications for cough from [place]. He reports that he was going to go out to dinner with his family when he saw all of a sudden started experiencing left- sided chest pain at approximately 6 PM going up to his left jaw as well as left arm. He denied any shortness of breath or lower extremity swelling or diaphoresis. Denies any vomiting. Patient was noted to be in hypertensive emergency with systolic rate in the 200s. He also was noted to be hyperkalemic with a potassium of 6.6 which was treated with calcium chloride and insulin in the ED. He also was noted to have elevated blood sugars in the 500s however he did not have ketones in the urine so DKA was thought to be less likely. Initial EKGs were concerning for ACS type event as he had noted ST depressions as well as an ST elevation in lead aVR. The pteint currently chest pain free and stble at his time. Past Medical History Home Meds Active Scripts Amlodipine Besylate* (Norvasc*) 10 Mg Tablet, 10 MG PO DAILY, #30 TAB Prov:BG OLIVEIRA. DO 04/07/18 Prednisone* (Prednisone*) 20 Mg Tab, 60 MG PO DAILY for 4 Days, TAB Prov:BG OLIVEIRA. DO 04/07/18 Amlodipine Besylate* (Amlodipine Besylate*) 10 Mg Tablet, 10 MG PO DAILY, #60 TAB Prov:GLORIANAGADiogo 05/02/16 Nitroglycerin* (Nitroglycerin* SL) 0.4 Mg Tab.subl, 0.4 MG SL Q5MIN PRN for CHEST PAIN, #30 BOTTLE Prov:GONZALEZ PEÑA. 03/22/14 Reported Medications Lorazepam* (Lorazepam*) 1 Mg Tablet, 1 MG PO Q6 PRN for ANXIETY, #60 TAB 04/07/18 Clonidine Hcl* (Clonidine Hcl*) 0.1 Mg Tab, 0.1 MG PO Q8, TAB 04/07/18 Glimepiride* (Glimepiride*) 4 Mg Tablet, 4 MG PO WITH BREAKFAST DINNE, TAB 04/07/18 Lisinopril* (Lisinopril*) 2.5 Mg Tablet, 2.5 MG PO DAILY, #30 TAB 04/07/18 Carvedilol* (Carvedilol*) 6.25 Mg Tablet, 6.25 MG PO BID, #60 TAB 02/23/17 Omeprazole* (Omeprazole*) 40 Mg Capsule.dr, 40 MG PO DAILY, #30 CAP 02/23/17 Insulin Lispro (Humalog Kwikpen) 200 Unit/1 Ml Insuln.pen, 5 UNIT SQ AC MEALS, EA 02/23/17 Insulin Glargine,Hum.rec.anlog (Toujeo Solostar) 300 Unit/1 Ml Insuln.pen, 50-60 UNIT SQ BID 02/23/17 Linagliptin (TRADJENTA) 5 Mg Tablet, 5 MG PO DAILY, TAB 04/29/16 Triamterene-HCTZ (Dyazide) 37.5 - 25 Mg Cap, 1 CAP PO DAILY, CAP 04/29/16 Atorvastatin* (Atorvastatin*) 40 Mg Tablet, 40 MG PO DAILY 06/10/13 Aspirin Ec (Aspir 81) 81 Mg Tablet.dr, 81 MG PO DAILY 06/10/13 Discontinued Reported Medications Benazepril Hcl* (Benazepril Hcl*) 10 Mg Tablet, 10 MG PO DAILY, #30 TAB 04/29/16 Lorazepam* (Lorazepam*) 0.5 Mg Tablet, 0.5-1 MG PO QID PRN for ANXIETY, TAB 03/20/14 Medications Current Medications Nitroglycerin (Nitroglycerin (Sl Tab) 0.4 Mg) 1 tab Q5M UP TO 3 DOSES PRN SL .CHEST PAIN Last administered on 04/08/18at 23:30; Admin Dose 1 TAB; Start at 23:00 Nitroglycerin/ Dextrose 250 ml @ 6 mls/hr ONCE STAT IV Last administered on 04/09/18at 03:10; Admin Dose 6 MLS/HR; Start 04/09/18 at 01:06; Stop 04/10/18 at 18:45 Ondansetron HCl (Zofran Inj) 4 mg ER BRIDGE PRN IV NAUSEA/VOMITING; Start 04/09/18 at 01:30; Stop 04/10/18 at 01:29 Acetaminophen (Tylenol Tab) 650 mg ER BRIDGE PRN PO .MILD PAIN 1-3 OR TEMP; Start 04/09/18 at 01:30; Stop 04/10/18 at 01:29 Sodium Chloride 1,000 ml @ 50 mls/hr Q20H IV ; Start 04/09/18 at 02:30 Amlodipine Besylate (Norvasc) 10 mg DAILY PO Last administered on 04/09/18at 09:15; Admin Dose 10 MG; Start 04/09/18 at 09:00 Aspirin (Halfprin) 81 mg DAILY PO Last administered on 04/09/18at 09:14; Admin Dose 81 MG; Start 04/09/18 at 09:00 Atorvastatin Calcium (Lipitor) 40 mg DAILY PO Last administered on 04/09/18at 09:15; Admin Dose 40 MG; Start 04/09/18 at 09:00 Carvedilol (Coreg) 6.25 mg BID PO Last administered on 04/09/18at 09:15; Admin Dose 6.25 MG; Start 04/09/18 at 09:00 Triamterene/HCTZ (Dyazide) 1 cap DAILY PO ; Start 04/09/18 at 09:00; Status Hold Insulin Glargine (Lantus) 40 units Q12 SC ; Start 04/09/18 at 09:00 Diagnostic Test (Pha) (Accu-Chek) 1 ea 02 XX ; Start 04/10/18 at 02:00 Insulin Aspart (Novolog Insulin Pen) NOVOLOG *MILD* ALGORI... Q4 SC Last administered on 04/09/18at 09:20; Admin Dose 3 UNIT; Start 04/09/18 at 05:00 Miscellaneous Information 1 ea NOTE XX ; Start 04/09/18 at 02:30 Glucose (Glutose) 15 gm Q15M PRN PO DECREASED GLUCOSE; Start 04/09/18 at 02:30 Glucose (Glutose) 22.5 gm Q15M PRN PO DECREASED GLUCOSE; Start 04/09/18 at 02:30 Dextrose (D50w Syringe) 25 ml Q15M PRN IV DECREASED GLUCOSE; Start 04/09/18 at 02:30 Dextrose (D50w Syringe) 50 ml Q15M PRN IV DECREASED GLUCOSE; Start 04/09/18 at 02:30 Glucagon (Glucagen) 1 mg Q15M PRN IM DECREASED GLUCOSE; Start 04/09/18 at 02:30 Glucose (Glutose) 15 gm Q15M PRN BUCCAL DECREASED GLUCOSE; Start 04/09/18 at 02:30 Pantoprazole (Protonix Tab) 40 mg DAILY@06 PO Last administered on 04/09/18at 07:59; Admin Dose 40 MG; Start 04/09/18 at 06:00 Heparin Sodium (Porcine) 250 ml @ 10 mls/hr PER PROTOCOL IV Last administered on 04/09/18at 09:22; Admin Dose 7.8 MLS/HR; Start 04/09/18 at 07:00 Heparin Sodium (Porcine) (Heparin (1000 Units/ml)) 4,000 unit ONCE IV ; Start 04/09/18 at 07:00; Stop 04/09/18 at 23:59 Heparin Sodium (Porcine) (Heparin (1000 Units/ml)) 4,000 unit PRN PRN IV PENDING LAB VALUE; Start 04/09/18 at 13:00 Lorazepam (Ativan) 1 mg Q6H PRN PO ANXIETY; Start 04/09/18 at 07:00 Allergies: Uncoded Allergies: bouganlincolnlla extract (Allergy, Severe, rashes, 04/07/18) rashes all over the body Past Surgical History Past Surgical Hx: coronary bypass surgery Social History Smoking Status: Former smoker Exam/Review of Systems Vital Signs Vitals Vital Signs Date Temp Pulse Resp B/P (MAP) Pulse Ox O2 O2 Flow FiO2 Time Delivery Rate 04/09/18 88 08:00 04/09/18 14 159/92 94 06:45 (114) 04/09/18 Room Air 06:30 04/09/18 97.8 04:00 Intake and Output 04/08/18 04/08/18 04/09/18 1515:00 23:00 07:00 IntakeIntake Total 67.20 ml OutputOutput Total 820 ml BalanceBalance -752.80 ml Labs Result Diagram: 04/09/18 0459 04/09/18 0459 Results 24hrs Laboratory Tests Test 04/08/18 23:10 04/09/18 00:20 04/09/18 01:03 04/09/18 01:09 White Blood Count 9.0 # Red Blood Count 4.15 L Hemoglobin 11.7 L Hematocrit 35.7 L Mean Corpuscular 86.0 Volume Mean Corpuscular 28.2 L Hemoglobin Mean Corpuscular 32.8 Hemoglobin Concent Red Cell 13.1 Distribution Width Platelet Count 212 Mean Platelet Volume 10.4 # Immature 0.400 Granulocytes % Neutrophils % 90.1 H Lymphocytes % 6.1 L Monocytes % 3.3 Eosinophils % 0.0 Basophils % 0.1 Nucleated Red Blood 0.0 Cells % Immature 0.040 H Granulocytes # Neutrophils # 8.1 H Lymphocytes # 0.6 L Monocytes # 0.3 Eosinophils # 0.0 Basophils # 0.0 Nucleated Red Blood 0.0 Cells # Prothrombin Time 14.5 Prothrombin Time 1.1 Ratio INR International 1.12 Normalized Ratio Activated 30.6 Partial Thromboplast Time Sodium Level 137 140 Potassium Level 6.6 *H 4.8 Chloride Level 104 110 Carbon Dioxide Level 14 L 15 L Anion Gap 19 H 15 H Blood Urea Nitrogen 47 H 47 H Creatinine 2.90 H 2.73 H Est Glomerular 22 L 24 L Filtrat Rate mL/min Glucose Level 512 *H 366 H Calcium Level 8.2 L 10.0 Total Bilirubin 0.0 L Direct Bilirubin 0.00 Indirect Bilirubin 0.0 Aspartate Amino 19 Transf (AST/SGOT) Alanine 25 Aminotransferase (AL T/SGPT) Alkaline Phosphatase 98 Troponin I < 0.012 < 0.012 B-Type Natriuretic 999 H Peptide Total Protein 7.3 Albumin 4.0 Globulin 3.30 H Albumin/Globulin 1.21 Ratio Urine Color STRAW Urine Clarity CLEAR Urine pH 5.0 Urine Specific 1.015 [place] Urine Ketones NEGATIVE Urine Nitrite NEGATIVE Urine Bilirubin NEGATIVE Urine Urobilinogen NEGATIVE Urine Leukocyte NEGATIVE Esterase Urine Microscopic 0 RBC Urine Microscopic 0 WBC Urine Hemoglobin 1+ H Urine Random 57.51 Creatinine Urine 1.28 Protein/Creatinine Ratio Urine Glucose 3+ H Urine Total Protein 74.0 H Bedside Glucose 349 H Test 04/09/18 03:27 04/09/18 04:59 04/09/18 06:31 04/09/18 07:21 Bedside Glucose 334 H 286 H White Blood Count 9.9 Red Blood Count 3.90 L Hemoglobin 11.0 L Hematocrit 33.2 L Mean Corpuscular 85.1 Volume Mean Corpuscular 28.2 L Hemoglobin Mean Corpuscular 33.1 Hemoglobin Concent Red Cell 13.1 Distribution Width Platelet Count 192 Mean Platelet Volume 9.9 Immature 0.400 Granulocytes % Neutrophils % 84.7 H Lymphocytes % 9.1 L Monocytes % 5.7 Eosinophils % 0.0 Basophils % 0.1 Nucleated Red Blood 0.0 Cells % Immature 0.040 H Granulocytes # Neutrophils # 8.4 H Lymphocytes # 0.9 Monocytes # 0.6 Eosinophils # 0.0 Basophils # 0.0 Nucleated Red Blood 0.0 Cells # Sodium Level 139 Potassium Level 5.7 H Chloride Level 108 Carbon Dioxide Level 17 L Anion Gap 14 H Blood Urea Nitrogen 44 H Creatinine 2.54 H Est Glomerular 26 L Filtrat Rate mL/min Glucose Level 310 H Hemoglobin A1c 9.0 H Calcium Level 9.1 Phosphorus Level 2.7 Magnesium Level 1.9 Total Bilirubin 0.0 L Direct Bilirubin 0.00 Indirect Bilirubin 0.0 Aspartate Amino 18 Transf (AST/SGOT) Alanine 31 Aminotransferase (AL T/SGPT) Alkaline Phosphatase 107 Creatine Kinase 104 Creatine Kinase 3.5 Index Creatinine Kinase MB 3.63 H (Mass) Troponin I 0.306 *H Total Protein 6.6 Albumin 3.5 Globulin 3.10 Albumin/Globulin 1.12 Ratio Triglycerides Level 78 Cholesterol Level 112 LDL Cholesterol, 66 Calculated HDL Cholesterol 30 Cholesterol/HDL 3.7 Ratio Thyroid Stimulating 0.105 L Hormone (TSH) Activated 84.0 *H Partial Thromboplast Time Test 04/09/18 09:18 Bedside Glucose 251 H Medications Medications Current Medications Nitroglycerin (Nitroglycerin (Sl Tab) 0.4 Mg) 1 tab Q5M UP TO 3 DOSES PRN SL .CHEST PAIN Last administered on 04/08/18at 23:30; Admin Dose 1 TAB; Start 04/08/18 at 23:00 Nitroglycerin/ Dextrose 250 ml @ 6 mls/hr ONCE STAT IV Last administered on 04/09/18at 03:10; Admin Dose 6 MLS/HR; Start 04/09/18 at 01:06; Stop 04/10/18 at 18:45 Ondansetron HCl (Zofran Inj) 4 mg ER BRIDGE PRN IV NAUSEA/VOMITING; Start 04/09/18 at 01:30; Stop 04/10/18 at 01:29 Acetaminophen (Tylenol Tab) 650 mg ER BRIDGE PRN PO .MILD PAIN 1-3 OR TEMP; Start 04/09/18 at 01:30; Stop 04/10/18 at 01:29 Sodium Chloride 1,000 ml @ 50 mls/hr Q20H IV ; Start 04/09/18 at 02:30 Amlodipine Besylate (Norvasc) 10 mg DAILY PO Last administered on 04/09/18at 09:15; Admin Dose 10 MG; Start 04/09/18 at 09:00 Aspirin (Halfprin) 81 mg DAILY PO Last administered on 04/09/18at 09:14; Admin Dose 81 MG; Start 04/09/18 at 09:00 Atorvastatin Calcium (Lipitor) 40 mg DAILY PO Last administered on 04/09/18at 09:15; Admin Dose 40 MG; Start 04/09/18 at 09:00 Carvedilol (Coreg) 6.25 mg BID PO Last administered on 04/09/18at 09:15; Admin Dose 6.25 MG; Start 04/09/18 at 09:00 Triamterene/HCTZ (Dyazide) 1 cap DAILY PO ; Start 04/09/18 at 09:00; Status Hold Insulin Glargine (Lantus) 40 units Q12 SC ; Start 04/09/18 at 09:00 Diagnostic Test (Pha) (Accu-Chek) 1 ea 02 XX ; Start 04/10/18 at 02:00 Insulin Aspart (Novolog Insulin Pen) NOVOLOG *MILD* ALGORI... Q4 SC Last administered on 04/09/18at 09:20; Admin Dose 3 UNIT; Start 04/09/18 at 05:00 Miscellaneous Information 1 ea NOTE XX ; Start 04/09/18 at 02:30 Glucose (Glutose) 15 gm Q15M PRN PO DECREASED GLUCOSE; Start 04/09/18 at 02:30 Glucose (Glutose) 22.5 gm Q15M PRN PO DECREASED GLUCOSE; Start 04/09/18 at 02:30 Dextrose (D50w Syringe) 25 ml Q15M PRN IV DECREASED GLUCOSE; Start 04/09/18 at 02:30 Dextrose (D50w Syringe) 50 ml Q15M PRN IV DECREASED GLUCOSE; Start 04/09/18 at 02:30 Glucagon (Glucagen) 1 mg Q15M PRN IM DECREASED GLUCOSE; Start 04/09/18 at 02:30 Glucose (Glutose) 15 gm Q15M PRN BUCCAL DECREASED GLUCOSE; Start 04/09/18 at 02:30 Pantoprazole (Protonix Tab) 40 mg DAILY@06 PO Last administered on 04/09/18at 07:59; Admin Dose 40 MG; Start 04/09/18 at 06:00 Heparin Sodium (Porcine) 250 ml @ 10 mls/hr PER PROTOCOL IV Last administered on 04/09/18at 09:22; Admin Dose 7.8 MLS/HR; Start 04/09/18 at 07:00 Heparin Sodium (Porcine) (Heparin (1000 Units/ml)) 4,000 unit ONCE IV ; Start 04/09/18 at 07:00; Stop 04/09/18 at 23:59 Heparin Sodium (Porcine) (Heparin (1000 Units/ml)) 4,000 unit PRN PRN IV PENDING LAB VALUE; Start 04/09/18 at 13:00 Lorazepam (Ativan) 1 mg Q6H PRN PO ANXIETY; Start 04/09/18 at 07:00 MEHRAN SNIDER MD Apr 09, 2018 09:35
[2018-04-09] MEDS ORDERED: DIPHENHYDRAMINE 50 MG CAP PO ONE (10:00)
[2018-04-09] MEDS: INSULIN GLARGINE [LANTus] (100 UNITS/ML) SYG SC SCH ×2 (11:24→20:27)
[2018-04-09] MEDS ORDERED: HEPARIN 1000 UNITS/ML 10 ML INJ IV PRN (13:00)
--- NOTE | 2018-04-09 14:43 | PN ---
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 Will titrate insulin while in house Dc home when stable Result Diagram: 04/09/18 0459 04/09/18 0459 Results 24hrs Laboratory Tests Test 04/08/18 23:10 04/09/18 00:20 04/09/18 01:03 04/09/18 01:09 White Blood Count 9.0 # Red Blood Count 4.15 L Hemoglobin 11.7 L Hematocrit 35.7 L Mean Corpuscular 86.0 Volume Mean Corpuscular 28.2 L Hemoglobin Mean Corpuscular 32.8 Hemoglobin Concen t Red Cell 13.1 Distribution Width Platelet Count 212 Mean Platelet 10.4 # Volume Immature 0.400 Granulocytes % Neutrophils % 90.1 H Lymphocytes % 6.1 L Monocytes % 3.3 Eosinophils % 0.0 Basophils % 0.1 Nucleated Red 0.0 Blood Cells % Immature 0.040 H Granulocytes # Neutrophils # 8.1 H Lymphocytes # 0.6 L Monocytes # 0.3 Eosinophils # 0.0 Basophils # 0.0 Nucleated Red 0.0 Blood Cells # Prothrombin Time 14.5 Prothrombin Time 1.1 Ratio INR International 1.12 Normalized Ratio Activated 30.6 Partial Thrombopl ast Time Sodium Level 137 140 Potassium Level 6.6 *H 4.8 Chloride Level 104 110 Carbon Dioxide 14 L 15 L Level Anion Gap 19 H 15 H Blood Urea 47 H 47 H Nitrogen Creatinine 2.90 H 2.73 H Est Glomerular 22 L 24 L Filtrat Rate mL/min Glucose Level 512 *H 366 H Calcium Level 8.2 L 10.0 Total Bilirubin 0.0 L Direct Bilirubin 0.00 Indirect 0.0 Bilirubin Aspartate Amino 19 Transf (AST/SGOT) Alanine 25 Aminotransferase (ALT/SGPT) Alkaline 98 Phosphatase Troponin I < 0.012 < 0.012 B-Type 999 H Natriuretic Peptide Total Protein 7.3 Albumin 4.0 Globulin 3.30 H Albumin/Globulin 1.21 Ratio Urine Color STRAW Urine Clarity CLEAR Urine pH 5.0 Urine Specific 1.015 Mason Urine Ketones NEGATIVE Urine Nitrite NEGATIVE Urine Bilirubin NEGATIVE Urine NEGATIVE Urobilinogen Urine Leukocyte NEGATIVE Esterase Urine Microscopic 0 RBC Urine Microscopic 0 WBC Urine Hemoglobin 1+ H Urine Random 57.51 Creatinine Urine 1.28 Protein/Creatinin e Ratio Urine Glucose 3+ H Urine Total 74.0 H Protein Bedside Glucose 349 H Test 04/09/18 03:27 04/09/18 04:59 04/09/18 06:31 04/09/18 07:15 Bedside Glucose 334 H 286 H White Blood Count 9.9 Red Blood Count 3.90 L Hemoglobin 11.0 L Hematocrit 33.2 L Mean Corpuscular 85.1 Volume Mean Corpuscular 28.2 L Hemoglobin Mean Corpuscular 33.1 Hemoglobin Concen t Red Cell 13.1 Distribution Width Platelet Count 192 Mean Platelet 9.9 Volume Immature 0.400 Granulocytes % Neutrophils % 84.7 H Lymphocytes % 9.1 L Monocytes % 5.7 Eosinophils % 0.0 Basophils % 0.1 Nucleated Red 0.0 Blood Cells % Immature 0.040 H Granulocytes # Neutrophils # 8.4 H Lymphocytes # 0.9 Monocytes # 0.6 Eosinophils # 0.0 Basophils # 0.0 Nucleated Red 0.0 Blood Cells # Sodium Level 139 Potassium Level 5.7 H Chloride Level 108 Carbon Dioxide 17 L Level Anion Gap 14 H Blood Urea 44 H Nitrogen Creatinine 2.54 H Est Glomerular 26 L Filtrat Rate mL/min Glucose Level 310 H Hemoglobin A1c 9.0 H Calcium Level 9.1 Phosphorus Level 2.7 Magnesium Level 1.9 Total Bilirubin 0.0 L Direct Bilirubin 0.00 Indirect 0.0 Bilirubin Aspartate Amino 18 Transf (AST/SGOT) Alanine 31 Aminotransferase (ALT/SGPT) Alkaline 107 Phosphatase Creatine Kinase 104 Creatine Kinase 3.5 Index Creatinine Kinase 3.63 H MB (Mass) Troponin I 0.306 *H Total Protein 6.6 Albumin 3.5 Globulin 3.10 Albumin/Globulin 1.12 Ratio Triglycerides 78 Level Cholesterol Level 112 LDL Cholesterol, 66 Calculated HDL Cholesterol 30 Cholesterol/HDL 3.7 Ratio Thyroid 0.105 L Stimulating Hormone (TSH) Blood Gas Blood arterial Specimen Source Arterial Blood 04/09/2018 10:10: Date Drawn 51 AM Arterial Blood pH 7.402 (Temp corrected) Arterial Blood 24.7 L pCO2 (Temp correct) Arterial Blood 112.6 H pO2 (Temp corrected) Arterial Blood 15.0 L HCO3 Arterial Blood -8.1 L Base Excess Arterial Blood 97.0 Oxygen Saturation [place] Test ACCEPTAB Arterial Blood Right Radial Gas Puncture Site Arterial 0 Blood Carboxyhemo globin Arterial Blood 0.3 Methemoglobin Blood Gas A-a O2 7.6 Differential Oxyhemoglobin 96.7 Percent Blood Gas 37.0 Temperature Blood Gas ROOM AIR Modality FiO2 21.0 Blood Gas DT Notified Whom Blood Gas 04/09/2018 10:24: Notified Time 47 AM Test 04/09/18 07:21 04/09/18 09:18 04/09/18 10:37 04/09/18 11:20 Activated 84.0 *H Partial Thrombopl ast Time Bedside Glucose 251 H Creatine Kinase 124 Creatine Kinase 3.9 Index Creatinine Kinase 4.86 H MB (Mass) Troponin I 2.810 *H Urine Random 67.40 Creatinine Urine Random 100 H Sodium Urine Total 102.0 H Protein Test 04/09/18 13:05 04/09/18 14:15 Bedside Glucose 189 218 Subjective 24 Hr Interval Summary Free Text/Dictation Chest symptoms are resolved Hypertension controlled Exam/Review of Systems Exam Vitals Vital Signs Date Temp Pulse Resp B/P (MAP) Pulse Ox O2 O2 Flow FiO2 Time Delivery Rate 04/09/18 76 12:00 04/09/18 11 158/78 94 Room Air 11:45 (104) 04/09/18 97.8 08:00 Intake and Output 04/08/18 04/08/18 04/09/18 1515:00 23:00 07:00 IntakeIntake Total 67.20 ml OutputOutput Total 820 ml BalanceBalance -752.80 ml Constitutional: alert, oriented, well developed Psych: no complaints, nl mood/affect Head: normocephalic, atraumatic Eyes: nl conjunctiva, EOMI, nl lids, nl sclera, PERRL ENMT: nl external ears & nose, nl lips & teeth, nl nasal mucosa & septum Neck: supple, non-tender Respiratory: clear to auscultation, normal air movement Cardiovascular: regular rate and rhythm, nl pulses Gastrointestinal: soft, nl liver, spleen, non-tender Musculoskeletal: nl extremities to inspection, nl gait and stance Extremities: normal pulses Neurological: 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 II-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1 Nucleated Red 0.0 Blood Cells % Immature 0.040 H Granulocytes # Neutrophils # 8.1 H Lymphocytes # 0.6 L Monocytes # 0.3 Eosinophils # 0.0 Basophils # 0.0 Nucleated Red 0.0 Blood Cells # Prothrombin Time 14.5 Prothrombin Time 1.1 Ratio INR International 1.12 Normalized Ratio Activated 30.6 Partial Thrombopl ast Time Sodium Level 137 140 Potassium Level 6.6 *H 4.8 Chloride Level 104 110 Carbon Dioxide 14 L 15 L Level Anion Gap 19 H 15 H Blood Urea 47 H 47 H Nitrogen Creatinine 2.90 H 2.73 H Est Glomerular 22 L 24 L Filtrat Rate mL/min Glucose Level 512 *H 366 H Calcium Level 8.2 L 10.0 Total Bilirubin 0.0 L Direct Bilirubin 0.00 Indirect 0.0 Bilirubin Aspartate Amino 19 Transf (AST/SGOT) Alanine 25 Aminotransferase (ALT/SGPT) Alkaline 98 Phosphatase Troponin I < 0.012 < 0.012 B-Type 999 H Natriuretic Peptide Total Protein 7.3 Albumin 4.0 Globulin 3.30 H Albumin/Globulin 1.21 Ratio Urine Color STRAW Urine Clarity CLEAR Urine pH 5.0 Urine Specific 1.015 Mason Urine Ketones NEGATIVE Urine Nitrite NEGATIVE Urine Bilirubin NEGATIVE Urine NEGATIVE Urobilinogen Urine Leukocyte NEGATIVE Esterase Urine Microscopic 0 RBC Urine Microscopic 0 WBC Urine Hemoglobin 1+ H Urine Random 57.51 Creatinine Urine 1.28 Protein/Creatinin e Ratio Urine Glucose 3+ H Urine Total 74.0 H Protein Bedside Glucose 349 H Test 04/09/18 03:27 04/09/18 04:59 04/09/18 06:31 04/09/18 07:15 Bedside Glucose 334 H 286 H White Blood Count 9.9 Red Blood Count 3.90 L Hemoglobin 11.0 L Hematocrit 33.2 L Mean Corpuscular 85.1 Volume Mean Corpuscular 28.2 L Hemoglobin Mean Corpuscular 33.1 Hemoglobin Concen t Red Cell 13.1 Distribution Width Platelet Count 192 Mean Platelet 9.9 Volume Immature 0.400 Granulocytes % Neutrophils % 84.7 H Lymphocytes % 9.1 L Monocytes % 5.7 Eosinophils % 0.0 Basophils % 0.1 Nucleated Red 0.0 Blood Cells % Immature 0.040 H Granulocytes # Neutrophils # 8.4 H Lymphocytes # 0.9 Monocytes # 0.6 Eosinophils # 0.0 Basophils # 0.0 Nucleated Red 0.0 Blood Cells # Sodium Level 139 Potassium Level 5.7 H Chloride Level 108 Carbon Dioxide 17 L Level Anion Gap 14 H Blood Urea 44 H Nitrogen Creatinine 2.54 H Est Glomerular 26 L Filtrat Rate mL/min Glucose Level 310 H Hemoglobin A1c 9.0 H Calcium Level 9.1 Phosphorus Level 2.7 Magnesium Level 1.9 Total Bilirubin 0.0 L Direct Bilirubin 0.00 Indirect 0.0 Bilirubin Aspartate Amino 18 Transf (AST/SGOT) Alanine 31 Aminotransferase (ALT/SGPT) Alkaline 107 Phosphatase Creatine Kinase 104 Creatine Kinase 3.5 Index Creatinine Kinase 3.63 H MB (Mass) Troponin I 0.306 *H Total Protein 6.6 Albumin 3.5 Globulin 3.10 Albumin/Globulin 1.12 Ratio Triglycerides 78 Level Cholesterol Level 112 LDL Cholesterol, 66 Calculated HDL Cholesterol 30 Cholesterol/HDL 3.7 Ratio Thyroid 0.105 L Stimulating Hormone (TSH) Blood Gas Blood arterial Specimen Source Arterial Blood 04/09/2018 10:10: Date Drawn 51 AM Arterial Blood pH 7.402 (Temp corrected) Arterial Blood 24.7 L pCO2 (Temp correct) Arterial Blood 112.6 H pO2 (Temp corrected) Arterial Blood 15.0 L HCO3 Arterial Blood -8.1 L Base Excess Arterial Blood 97.0 Oxygen Saturation [place] Test ACCEPTAB Arterial Blood Right Radial Gas Puncture Site Arterial 0 Blood Carboxyhemo globin Arterial Blood 0.3 Methemoglobin Blood Gas A-a O2 7.6 Differential Oxyhemoglobin 96.7 Percent Blood Gas 37.0 Temperature Blood Gas ROOM AIR Modality FiO2 21.0 Blood Gas DT Notified Whom Blood Gas 04/09/2018 10:24: Notified Time 47 AM Test 04/09/18 07:21 04/09/18 09:18 04/09/18 10:37 04/09/18 11:20 Activated 84.0 *H Partial Thrombopl ast Time Bedside Glucose 251 H Creatine Kinase 124 Creatine Kinase 3.9 Index Creatinine Kinase 4.86 H MB (Mass) Troponin I 2.810 *H Urine Random 67.40 Creatinine Urine Random 100 H Sodium Urine Total 102.0 H Protein Test 04/09/18 13:05 04/09/18 14:15 Bedside Glucose 189 218 Medications Medication Current Medications Nitroglycerin (Nitroglycerin (Sl Tab) 0.4 Mg) 1 tab Q5M UP TO 3 DOSES PRN SL .CHEST PAIN Last administered on 04/08/18at 23:30; Admin Dose 1 TAB; Start 04/08/18 at 23:00 Nitroglycerin/ Dextrose 250 ml @ 6 mls/hr ONCE STAT IV Last administered on 04/09/18at 03:10; Admin Dose 6 MLS/HR; Start 04/09/18 at 01:06; Stop 04/10/18 at 18:45 Sodium Chloride 1,000 ml @ 50 mls/hr Q20H IV Last administered on 04/09/18at 11:06; Admin Dose 50 MLS/HR; Start 04/09/18 at 02:30 Amlodipine Besylate (Norvasc) 10 mg DAILY PO Last administered on 04/09/18at 09:15; Admin Dose 10 MG; Start 04/09/18 at 09:00 Aspirin (Halfprin) 81 mg DAILY PO Last administered on 04/09/18 09:14; Admin Dose 81 MG; Start 04/09/18 at 09:00 Atorvastatin Calcium (Lipitor) 40 mg DAILY PO Last administered on 04/09/18 09:15; Admin Dose 40 MG; Start 04/09/18 at 09:00 Carvedilol (Coreg) 6.25 mg BID PO Last administered on 04/09/18at 09:15; Admin Dose 6.25 MG; Start 04/09/18 at 09:00 Triamterene/HCTZ (Dyazide) 1 cap DAILY PO ; Start 04/09/18 at 09:00; Status Hold Insulin Glargine (Lantus) 40 units Q12 SC Last administered on 04/09/18at 11:24; Admin Dose 40 UNITS; Start 04/09/18 at 09:00 Diagnostic Test (Pha) (Accu-Chek) 1 ea 02 XX ; Start 04/10/18 at 02:00 Insulin Aspart (Novolog Insulin Pen) NOVOLOG *MILD* ALGORI... Q4 SC Last administered on 04/09/18at 13:07; Admin Dose 2 UNIT; Start 04/09/18 at 05:00 Miscellaneous Information 1 ea NOTE XX ; Start 04/09/18 at 02:30 Glucose (Glutose) 15 gm Q15M PRN PO DECREASED GLUCOSE; Start 04/09/18 at 02:30 Glucose (Glutose) 22.5 gm Q15M PRN PO DECREASED GLUCOSE; Start 04/09/18 at 02:30 Dextrose (D50w Syringe) 25 ml Q15M PRN IV DECREASED GLUCOSE; Start 04/09/18 at 02:30 Dextrose (D50w Syringe) 50 ml Q15M PRN IV DECREASED GLUCOSE; Start 04/09/18 at 02:30 Glucagon (Glucagen) 1 mg Q15M PRN IM DECREASED GLUCOSE; Start 04/09/18 at 02:30 Glucose (Glutose) 15 gm Q15M PRN BUCCAL DECREASED GLUCOSE; Start 04/09/18 at 02:30 Pantoprazole (Protonix Tab) 40 mg DAILY@06 PO Last administered on 04/09/18at 07:59; Admin Dose 40 MG; Start 04/09/18 at 06:00 Heparin Sodium (Porcine) 250 ml @ 10 mls/hr PER PROTOCOL IV Last administered on 04/09/18at 09:22; Admin Dose 7.8 MLS/HR; Start 04/09/18 at 07:00 Heparin Sodium (Porcine) (Heparin (1000 Units/ml)) 4,000 unit ONCE IV ; Start 04/09/18 at 07:00; Stop 04/09/18 at 23:59 Heparin Sodium (Porcine) (Heparin (1000 Units/ml)) 4,000 unit PRN PRN IV PENDING LAB VALUE; Start 04/09/18 at 13:00 Lorazepam (Ativan) 1 mg Q6H PRN PO ANXIETY; Start 04/09/18 at 07:00 Clonidine (Catapres) 0.1 mg Q6H PRN PO ELEVATED BLOOD PRESSURE Last administered on 04/09/18at 10:55; Admin Dose 0.1 MG; Start 04/09/18 at 10:00 Insulin Aspart (Novolog Insulin Pen) 10 unit WITH MEALS SC Last administered on 04/09/18at 14:19; Admin Dose 10 UNIT; Start 04/09/18 at 14:00 CASSIE HENRY MD Apr 09, 2018 14:43
[2018-04-09] MEDS ORDERED: INSULIN ASPART [NOVOLOG] 3 ML PEN SC SCH ×2 (17:35)
--- NOTE | 2018-04-09 19:54 | NUR ---
E[facility] -Received pt from overnight caregiver RN stable. - Pt complains of slight headache but no chest pain. said ok to turn off nitro drip to help alleviate headache - Discussed with Dr. Salvador the high poyassium... will continue to monitor because Dr. Fam wants to control BG first. If not resolved then Kayexalate will be considered. Continue heparin for next 48 hrs. Notify [place] of troponins but expects them to be elevated. He believes he will need to take him to cathode maker in a couple days once he has time to stabilize the creatinine and get off the heparin drip. [place] prescribed PRN HTN medication when SBP > 160. Dr. Recio was notified of the conversation - Dr. Recio was notified of patient's rash and increased itchiness. The pt has had the rash since before the hospital and family and pt claim it is from some herbal supplements taken in [place] 3 days ago. - Ptt verified and checked with fellow nurses and pharmacists. Dr. Salvador notified of PTT values - Pt put on renal diet and tolerated it well. Spoke to Dr. Vasquez about Insulin regimen and the increase from 7 units to 10 SC w/meals - Skin remains intact - will continue to monitor
[2018-04-09] MEDS ORDERED: DIPHENHYDRAMINE 25 MG CAP PO PRN (20:30)
--- NOTE | 2018-04-09 23:52 | CONS ---
Assessment/Plan Assessment/Plan Problems: (1) Uncontrolled type 2 diabetes mellitus Status: Chronic Comment: suboptimal glycemic control, but has showed good response to initial insulin management. Suspect some non compliance at home with insulin dosing. As such, patient does not require insulin drip at this time. I will adjust prandial insulin, continue current basal dose, change POC glucose to AC and HS. Continue to monitor and make adjustments as needed. Qualifiers: Qualified Codes: E11.65 - Type 2 diabetes mellitus with hyperglycemia Consultation Date/Type/Reason Admit Date/Time Date of Consultation: Apr 09, 2018 (@ 13:00) Type of Consult Endocrine Reason for Consultation Glucose management Requesting Provider: CASSIE HENRY MD Date/Time of Note DATE: 04/09/18 TIME: 23:26 Patient seen at 13:00 Hx of Present Illness Thank you for asking me to participate in this patient's care. This is a 62 year old man with a 30 year history of diabetes that he says has never been well controlled. At home he injects 2 types of insulin, both of which he self adjusts the dose according to his fingerstick in the morning. He gives himself between 30 and 40 units of Levemir in the morning and between 5-7 units of insulin before meals.He presented to the [facility] with chest pain and headache. He has been admitted to the ICU for evaluation of his chest pain. Upon presentation his blood glucose levels were in the 500mg/dl range, but have slowly come down and are currently in the 200mg/dl range. I have asked to assist in managing this patient's blood glucose and insulin regimen. After 9 system review pertinent positives as noted below: Endocrine: polyuria, other (neuropathy) Past Medical History Medical History: angina, coronary artery disease, diabetes, high cholesterol, hypertension, renal disease (CKD) Home Meds Active Scripts Amlodipine Besylate* (Norvasc*) 10 Mg Tablet, 10 MG PO DAILY, #30 TAB Prov:LEKKOS,APOSTOLOS A. DO 04/07/18 Prednisone* (Prednisone*) 20 Mg Tab, 60 MG PO DAILY for 4 Days, TAB Prov:LEKKOS,APOSTOLOS A. DO 04/07/18 Amlodipine Besylate* (Amlodipine Besylate*) 10 Mg Tablet, 10 MG PO DAILY, #60 TAB Prov:ALEX CASTRO 05/02/16 Nitroglycerin* (Nitroglycerin* SL) 0.4 Mg Tab.subl, 0.4 MG SL Q5MIN PRN for CHEST PAIN, #30 BOTTLE Prov:GONZALEZ PEÑA 03/22/14 Reported Medications Lorazepam* (Lorazepam*) 1 Mg Tablet, 1 MG PO Q6 PRN for ANXIETY, #60 TAB 04/07/18 Clonidine Hcl* (Clonidine Hcl*) 0.1 Mg Tab, 0.1 MG PO Q8, TAB 04/07/18 Glimepiride* (Glimepiride*) 4 Mg Tablet, 4 MG PO WITH BREAKFAST DINNE, TAB 04/07/18 Lisinopril* (Lisinopril*) 2.5 Mg Tablet, 2.5 MG PO DAILY, #30 TAB 04/07/18 Carvedilol* (Carvedilol*) 6.25 Mg Tablet, 6.25 MG PO BID, #60 TAB 02/23/17 Omeprazole* (Omeprazole*) 40 Mg Capsule.dr, 40 MG PO DAILY, #30 CAP 02/23/17 Insulin Lispro (Humalog Kwikpen) 200 Unit/1 Ml Insuln.pen, 5 UNIT SQ AC MEALS, EA 02/23/17 Insulin Glargine,Hum.rec.anlog (Toujeo Solostar) 300 Unit/1 Ml Insuln.pen, 50-60 UNIT SQ BID 02/23/17 Linagliptin (TRADJENTA) 5 Mg Tablet, 5 MG PO DAILY, TAB 04/29/16 Triamterene-HCTZ (Dyazide) 37.5 - 25 Mg Cap, 1 CAP PO DAILY, CAP 04/29/16 Atorvastatin* (Atorvastatin*) 40 Mg Tablet, 40 MG PO DAILY 06/10/13 Aspirin Ec (Aspir 81) 81 Mg Tablet.dr, 81 MG PO DAILY 06/10/13 Discontinued Reported Medications Benazepril Hcl* (Benazepril Hcl*) 10 Mg Tablet, 10 MG PO DAILY, #30 TAB 04/29/16 Lorazepam* (Lorazepam*) 0.5 Mg Tablet, 0.5-1 MG PO QID PRN for ANXIETY, TAB 03/20/14 Medications Current Medications Nitroglycerin/ Dextrose 250 ml @ 6 mls/hr ONCE STAT IV Last administered on 04/09/18at 03:10; Admin Dose 6 MLS/HR; Start 04/09/18 at 01:06; Stop 04/10/18 at 18:45 Sodium Chloride 1,000 ml @ 50 mls/hr Q20H IV Last administered on 04/09/18at 11:06; Admin Dose 50 MLS/HR; Start 04/09/18 at 02:30 Amlodipine Besylate (Norvasc) 10 mg DAILY PO Last administered on 04/09/18at 09:15; Admin Dose 10 MG; Start 04/09/18 at 09:00 Aspirin (Halfprin) 81 mg DAILY PO Last administered on 04/09/18at 09:14; Admin Dose 81 MG; Start 04/09/18 at 09:00 Atorvastatin Calcium (Lipitor) 40 mg DAILY PO Last administered on 04/09/18at 09:15; Admin Dose 40 MG; Start 04/09/18 at 09:00 Carvedilol (Coreg) 6.25 mg BID PO Last administered on 04/09/18at 20:22; Admin Dose 6.25 MG; Start 04/09/18 at 09:00 Triamterene/HCTZ (Dyazide) 1 cap DAILY PO ; Start 04/09/18 at 09:00; Status H old Insulin Glargine (Lantus) 40 units Q12 SC Last administered on 04/09/18at 20:27; Admin Dose 40 UNITS; Start 04/09/18 at 09:00 Miscellaneous Information 1 ea NOTE XX ; Start 04/09/18 at 02:30 Glucose (Glutose) 15 gm Q15M PRN PO DECREASED GLUCOSE; Start 04/09/18 at 02:30 Glucose (Glutose) 22.5 gm Q15M PRN PO DECREASED GLUCOSE; Start 04/09/18 at 02:30 Dextrose (D50w Syringe) 25 ml Q15M PRN IV DECREASED GLUCOSE; Start 04/09/18 at 02:30 Dextrose (D50w Syringe) 50 ml Q15M PRN IV DECREASED GLUCOSE; Start 04/09/18 at 02:30 Glucagon (Glucagen) 1 mg Q15M PRN IM DECREASED GLUCOSE; Start 04/09/18 at 02:30 Glucose (Glutose) 15 gm Q15M PRN BUCCAL DECREASED GLUCOSE; Start 04/09/18 at 02:30 Pantoprazole (Protonix Tab) 40 mg DAILY@06 PO Last administered on 04/09/18at 07:59; Admin Dose 40 MG; Start 04/09/18 at 06:00 Heparin Sodium (Porcine) 250 ml @ 10 mls/hr PER PROTOCOL IV Last administered on 04/09/18at 09:22; Admin Dose 7.8 MLS/HR; Start 04/09/18 at 07:00 Heparin Sodium (Porcine) (Heparin (1000 Units/ml)) 4,000 unit ONCE IV ; Start 04/09/18 at 07:00; Stop 04/09/18 at 23:59 Heparin Sodium (Porcine) (Heparin (1000 Units/ml)) 4,000 unit PRN PRN IV PENDING LAB VALUE; Start 04/09/18 at 13:00 Lorazepam (Ativan) 1 mg Q6H PRN PO ANXIETY; Start 04/09/18 at 07:00 Clonidine (Catapres) 0.1 mg Q6H PRN PO ELEVATED BLOOD PRESSURE Last administered on 04/09/18at 21:40; Admin Dose 0.1 MG; Start 04/09/18 at 10:00 Insulin Aspart (Novolog Insulin Pen) 10 unit WITH MEALS SC Last administered on 04/09/18at 17:18; Admin Dose 10 UNIT; Start 04/09/18 at 14:00 Diagnostic Test (Pha) (Accu-Chek) 1 ea 02 XX ; Start 04/10/18 at 02:00 Insulin Aspart (Novolog Insulin Pen) NOVOLOG *MILD* ALGORITHM WITH MEALS BEDTIME SC ; Start 04/09/18 at 21:00 Diphenhydramine HCl (Benadryl) 25 mg Q6H PRN PO ITCHING; Start 04/09/18 at 20:30 Allergies: Uncoded Allergies: bouganvilla extract (Allergy, Severe, rashes, 04/07/18) rashes all over the body Past Surgical History Past Surgical Hx: coronary bypass surgery Family History Significant Family History: heart disease, diabetes Social History Alcohol Use: sober Smoking Status: Former smoker Exam/Review of Systems Exam Vitals Vital Signs Date Temp Pulse Resp B/P (MAP) Pulse Ox O2 O2 Flow FiO2 Time Delivery Rate 04/09/18 77 14 181/91 96 22:30 (121) 04/09/18 Room Air 22:00 04/09/18 97.8 20:00 Intake and Output 04/08/18 04/08/18 04/09/18 1515:00 23:00 07:00 IntakeIntake Total 67.20 ml OutputOutput Total 820 ml BalanceBalance -752.80 ml Constitutional: alert, oriented, well developed Psych: no complaints Head: normocephalic Eyes: nl conjunctiva, EOMI, PERRL ENMT: mucosa pink and moist Neck: supple, thyromegaly (none) Respiratory: clear to auscultation, normal air movement Cardiovascular: regular rate and rhythm, other (thoracotomy scar) Gastrointestinal: soft Musculoskeletal: nl extremities to inspection, other (bypass graft right lower extremity) Neurological: nl mental status, nl speech, nl strength, reflexes, other (grossl y intact to sensation) Skin: other Additional Comments POC glucose and labs reviewed Results Result Diagram: 04/09/18 0459 04/09/18 0459 Results 24hrs Laboratory Tests Test 04/09/18 00:20 04/09/18 01:03 04/09/18 01:09 04/09/18 03:27 Urine Color STRAW Urine Clarity CLEAR Urine pH 5.0 Urine Specific 1.015 [place] Urine Ketones NEGATIVE Urine Nitrite NEGATIVE Urine Bilirubin NEGATIVE Urine NEGATIVE Urobilinogen Urine Leukocyte NEGATIVE Esterase Urine Microscopic 0 RBC Urine Microscopic 0 WBC Urine Hemoglobin 1+ H Urine Random 57.51 Creatinine Urine 1.28 Protein/Creatinin e Ratio Urine Glucose 3+ H Urine Total 74.0 H Protein Sodium Level 140 Potassium Level 4.8 Chloride Level 110 Carbon Dioxide 15 L Level Anion Gap 15 H Blood Urea 47 H Nitrogen Creatinine 2.73 H Est Glomerular 24 L Filtrat Rate mL/min Glucose Level 366 H Calcium Level 10.0 Troponin I < 0.012 Bedside Glucose 349 H 334 H Test 04/09/18 04:59 04/09/18 06:31 04/09/18 07:15 04/09/18 07:21 White Blood Count 9.9 Red Blood Count 3.90 L Hemoglobin 11.0 L Hematocrit 33.2 L Mean Corpuscular 85.1 Volume Mean Corpuscular 28.2 L Hemoglobin Mean Corpuscular 33.1 Hemoglobin Concen t Red Cell 13.1 Distribution Width Platelet Count 192 Mean Platelet 9.9 Volume Immature 0.400 Granulocytes % Neutrophils % 84.7 H Lymphocytes % 9.1 L Monocytes % 5.7 Eosinophils % 0.0 Basophils % 0.1 Nucleated Red 0.0 Blood Cells % Immature 0.040 H Granulocytes # Neutrophils # 8.4 H Lymphocytes # 0.9 Monocytes # 0.6 Eosinophils # 0.0 Basophils # 0.0 Nucleated Red 0.0 Blood Cells # Sodium Level 139 Potassium Level 5.7 H Chloride Level 108 Carbon Dioxide 17 L Level Anion Gap 14 H Blood Urea 44 H Nitrogen Creatinine 2.54 H Est Glomerular 26 L Filtrat Rate mL/min Glucose Level 310 H Hemoglobin A1c 9.0 H Calcium Level 9.1 Phosphorus Level 2.7 Magnesium Level 1.9 Total Bilirubin 0.0 L Direct Bilirubin 0.00 Indirect 0.0 Bilirubin Aspartate Amino 18 Transf (AST/SGOT) Alanine 31 Aminotransferase (ALT/SGPT) Alkaline 107 Phosphatase Creatine Kinase 104 Creatine Kinase 3.5 Index Creatinine Kinase 3.63 H MB (Mass) Troponin I 0.306 *H Total Protein 6.6 Albumin 3.5 Globulin 3.10 Albumin/Globulin 1.12 Ratio Triglycerides 78 Level Cholesterol Level 112 LDL Cholesterol, 66 Calculated HDL Cholesterol 30 Cholesterol/HDL 3.7 Ratio Thyroid 0.105 L Stimulating Hormone (TSH) Bedside Glucose 286 H Blood Gas Blood arterial Specimen Source Arterial Blood 04/09/2018 10:10: Date Drawn 51 AM Arterial Blood pH 7.402 (Temp corrected) Arterial Blood 24.7 L pCO2 (Temp correct) Arterial Blood 112.6 H pO2 (Temp corrected) Arterial Blood 15.0 L HCO3 Arterial Blood -8.1 L Base Excess Arterial Blood 97.0 Oxygen Saturation [place] Test ACCEPTAB Arterial Blood Right Radial Gas Puncture Site Arterial 0 Blood Carboxyhemo globin Arterial Blood 0.3 Methemoglobin Blood Gas A-a O2 7.6 Differential Oxyhemoglobin 96.7 Percent Blood Gas 37.0 Temperature Blood Gas ROOM AIR Modality FiO2 21.0 Blood Gas DT Notified Whom Blood Gas 04/09/2018 10:24: Notified Time 47 AM Activated 84.0 *H Partial Thrombopl ast Time Test 04/09/18 09:18 04/09/18 10:37 04/09/18 11:20 04/09/18 13:05 Bedside Glucose 251 H 189 Creatine Kinase 124 Creatine Kinase 3.9 Index Creatinine Kinase 4.86 H MB (Mass) Troponin I 2.810 *H Urine Random 67.40 Creatinine Urine Random 100 H Sodium Urine Total 102.0 H Protein Test 1/26/19 14:15 04/09/18 14:21 04/09/18 17:16 04/09/18 20:08 Bedside Glucose 218 125 Activated 84.2 *H 48.1 H Partial Thrombopl ast Time Creatine Kinase 111 Creatine Kinase 4.5 Index Creatinine Kinase 5.03 H MB (Mass) Troponin I 4.500 *H Test 04/09/18 20:21 Bedside Glucose 131 Medications Medication Current Medications Nitroglycerin/ Dextrose 250 ml @ 6 mls/hr ONCE STAT IV Last administered on 04/09/18at 03:10; Admin Dose 6 MLS/HR; Start 04/09/18 at 01:06; Stop 04/10/18 at 18:45 Sodium Chloride 1,000 ml @ 50 mls/hr Q20H IV Last administered on 04/09/18at 11:06; Admin Dose 50 MLS/HR; Start 04/09/18 at 02:30 Amlodipine Besylate (Norvasc) 10 mg DAILY PO Last administered on 04/09/18at 09:15; Admin Dose 10 MG; Start 04/09/18 at 09:00 Aspirin (Halfprin) 81 mg DAILY PO Last administered on 04/09/18at 09:14; Admin Dose 81 MG; Start 04/09/18 at 09:00 Atorvastatin Calcium (Lipitor) 40 mg DAILY PO Last administered on 04/09/18at 09:15; Admin Dose 40 MG; Start 04/09/18 at 09:00 Carvedilol (Coreg) 6.25 mg BID PO Last administered on 04/09/18at 20:22; Admin Dose 6.25 MG; Start 04/09/18 at 09:00 Triamterene/HCTZ (Dyazide) 1 cap DAILY PO ; Start 04/09/18 at 09:00; Status Hold Insulin Glargine (Lantus) 40 units Q12 SC Last administered on 04/09/18at 20:27; Admin Dose 40 UNITS; Start 04/09/18 at 09:00 Miscellaneous Information 1 ea NOTE XX ; Start 04/09/18 at 02:30 Glucose (Glutose) 15 gm Q15M PRN PO DECREASED GLUCOSE; Start 04/09/18 at 02:30 Glucose (Glutose) 22.5 gm Q15M PRN PO DECREASED GLUCOSE; Start 04/09/18 at 02:30 Dextrose (D50w Syringe) 25 ml Q15M PRN IV DECREASED GLUCOSE; Start 04/09/18 at 02:30 Dextrose (D50w Syringe) 50 ml Q15M PRN IV DECREASED GLUCOSE; Start 04/09/18 at 02:30 Glucagon (Glucagen) 1 mg Q15M PRN IM DECREASED GLUCOSE; Start 04/09/18 at 02:30 Glucose (Glutose) 15 gm Q15M PRN BUCCAL DECREASED GLUCOSE; Start 04/09/18 at 02:30 Pantoprazole (Protonix Tab) 40 mg DAILY@06 PO Last administered on 04/09/18at 07:59; Admin Dose 40 MG; Start 04/09/18 at 06:00 Heparin Sodium (Porcine) 250 ml @ 10 mls/hr PER PROTOCOL IV Last administered on 04/09/18at 09:22; Admin Dose 7.8 MLS/HR; Start 04/09/18 at 07:00 Heparin Sodium (Porcine) (Heparin (1000 Units/ml)) 4,000 unit ONCE IV ; Start 04/09/18 at 07:00; Stop 04/09/18 at 23:59 Heparin Sodium (Porcine) (Heparin (1000 Units/ml)) 4,000 unit PRN PRN IV PENDING LAB VALUE; Start 04/09/18 at 13:00 Lorazepam (Ativan) 1 mg Q6H PRN PO ANXIETY; Start 04/09/18 at 07:00 Clonidine (Catapres) 0.1 mg Q6H PRN PO ELEVATED BLOOD PRESSURE Last administered on 04/09/18at 21:40; Admin Dose 0.1 MG; Start 04/09/18 at 10:00 Insulin Aspart (Novolog Insulin Pen) 10 unit WITH MEALS SC Last administered on 04/09/18at 17:18; Admin Dose 10 UNIT; Start 04/09/18 at 14:00 Diagnostic Test (Pha) (Accu-Chek) 1 ea 02 XX ; Start 04/10/18 at 02:00 Insulin Aspart (Novolog Insulin Pen) NOVOLOG *MILD* ALGORITHM WITH MEALS BEDTIME SC ; Start 04/09/18 at 21:00 Diphenhydramine HCl (Benadryl) 25 mg Q6H PRN PO ITCHING; Start 04/09/18 at 20:30 PARISH MARTINEZ MD Apr 09, 2018 23:40
[2018-04-10] VITALS (16 sets, daily range): BP systolic 132–190; BP diastolic 72–95; PULSE 67–88; RESP 11–20
[2018-04-10] MEDS: ACCU-CHEK XX SCH (01:37)
[2018-04-10] MEDS: SOD CHLORIDE 0.9% 1,000 ML IV SCH (01:37)
[2018-04-10] MEDS ORDERED: ACCU-CHEK XX SCH (02:00)
[2018-04-10] MEDS: PANTOPRAZOLE (EC) 40 MG TAB PO SCH (06:20)
[2018-04-10] MEDS: HEPARIN 25000 UNITS/250 ML 250 ML IV SCH (06:26)
[2018-04-10] MEDS: INSULIN ASPART [NOVOLOG] 3 ML PEN SC SCH ×7 (07:55→20:26)
--- NOTE | 2018-04-10 08:46 | RADRPT ---
Echocardiogram Report Patient Name: STEVEN RAVI Gender: Male Date: 1955 Study Date: 09-Apr-2018 Clinical Systems Educator: Bryon Calderon [facility] Location: 112-A Ref. Physician: TONY PONCE Quality: Adequate Procedures: Transthoracic echocardiogram with complete 2D, M-Mode, and doppler examination. Indications: Chest Pain. 2D/M Mode Doppler Measurement Value Normal Ranges Measurement Value Normal Ranges LVIDd 2D 4.2 3.5 - 5.6 cm AV Peak Jabari 1.4 m/sec LVIDs 2D 2.6 2.1 - 4.1 cm AV Peak PG 8.0 mmHg LVPWd 2D 1.1 0.6 - 1.1 cm LVOT Peak Jabari 1.1 m/sec IVSd 2D 1.1 0.6 - 1.1 cm LVOT Peak PG 5.0 mmHg AoR Diam 2D 2.5 2.0 - 3.7 cm MV E Peak Jabari 0.8 m/sec LA/Ao 2D 1 0 - 1 MV A Peak Jabari 1.1 m/sec LA Dimen 2D 3.7 2.3 - 4.0 cm MV E/A 0.8 MV Decel Time 141 msec Lat E` Jabari 0.1 m/sec Lateral E/E` 10.1 Med E` Jabari 0.1 m/sec MV E/A 0.8 TR Peak Jabari 2.8 m/sec TR Peak PG 32.0 mmHg RVSP 35.0 mmHg Findings Left Ventricle: Normal left ventricular systolic function. Normal left ventricular cavity size. Left ventricular wall thickness upper limits of normal. Ejection fraction is visually estimated at 65 %. Tissue Doppler/Mitral Doppler indices are consistent with impaired relaxation (Stage I diastolic dysfunction). Right Ventricle: Normal right ventricular size. Normal right ventricular systolic function. Left Atrium: The left atrium is normal in size. Right Atrium: The right atrium is normal in size. Mitral Valve: Normal appearance and function of the mitral valve with trace physiologic regurgitation. Aortic Valve: No significant aortic stenosis or insufficiency. Aortic cusps appear mildly calcified. Tricuspid Valve: Normal appearance of the tricuspid valve. Estimated peak PA systolic pressure 35 mmHg. There is mild tricuspid regurgitation. Pulmonic Valve: Pulmonic valve not well visualized. There is trace pulmonic regurgitation. Pericardium: Normal pericardium with no significant pericardial effusion. Aorta: Normal aortic root. IVC: Normal size and normal respiratory collapse consistent with normal right atrial pressure. Conclusions Normal left ventricular systolic function. Normal left ventricular cavity size. Left ventricular wall thickness upper limits of normal. Ejection fraction is visually estimated at 65 %. Tissue Doppler/Mitral Doppler indices are consistent with impaired relaxation (Stage I diastolic dysfunction). Normal 2D/Doppler-echocardiographic study with normal left ventricular function and no significant valvular abnormalities. Electronically Signed By: Arnaud Marcelino 10-Apr-2018 08:45:22 -0800 Patient Name: STEVEN RAVI Study Date: 09-Apr-2018 [id number]
[2018-04-10] MEDS ORDERED: INSULIN GLARGINE [LANTus] (100 UNITS/ML) SYG SC SCH (09:00)
[2018-04-10] MEDS: ASPIRIN (EC) 81 MG TAB PO SCH (09:45)
[2018-04-10] MEDS: AMLODIPINE 10 MG TAB PO SCH (09:45)
[2018-04-10] MEDS: ATORVASTATIN 40 MG TAB PO SCH (09:45)
--- NOTE | 2018-04-10 10:25 | CONS ---
Assessment/Plan Assessment/Plan Hospital Course (Demo Recall) NSTEMI - preserved EF now pain free renal function improving will monitor for now possible cath on Wednesday continue asa, heparin, statin coreg SATISH-I held for renal insufficiency Consultation Date/Type/Reason Admit Date/Time Apr 09, 2018 at 01:12 Initial Consult Date 04/09/18 Type of Consult Cardiology Reason for Consultation NSTEMI Requesting Provider: CASSIE HENRY MD Date/Time of Note DATE: 04/10/18 TIME: 10:22 Detailed Summary Cardiovascular: No chest pain Exam/Review of Systems Vital Signs Vitals Vital Signs Date Temp Pulse Resp B/P (MAP) Pulse Ox O2 O2 Flow FiO2 Time Delivery Rate 04/10/18 97.7 74 18 190/95 98 Room Air 07:10 (126) Intake and Output 04/09/18 04/09/18 04/10/18 1515:00 23:00 07:00 IntakeIntake Total 585.0 ml 979.1 ml 333.0 ml OutputOutput Total 470 ml 380 ml 500 ml BalanceBalance 115.0 ml 599.1 ml -167.0 ml Exam Constitutional: alert, oriented Respiratory: clear to auscultation Cardiovascular: regular rate and rhythm Musculoskeletal: nl extremities to inspection Extremities: No edema Labs Result Diagram: 04/10/18 0804/10/18818 Results 24hrs Laboratory Tests Test 04/09/18 10:37 04/09/18 11:20 04/09/18 13:05 04/09/18 14:15 Creatine Kinase 124 Creatine Kinase 3.9 Index Creatinine Kinase MB 4.86 H (Mass) Troponin I 2.810 *H Urine Random 67.40 Creatinine Urine Random Sodium 100 H Urine Total Protein 102.0 H Bedside Glucose 189 218 Test 04/09/18 14:21 04/09/18 17:16 04/09/18 20:08 04/09/18 20:21 Activated 84.2 *H 48.1 H Partial Thromboplast Time Creatine Kinase 111 Creatine Kinase 4.5 Index Creatinine Kinase MB 5.03 H (Mass) Troponin I 4.500 *H Bedside Glucose 125 131 Test 04/10/18 01:36 04/10/18 02:13 04/10/18 02:42 04/10/18 08:19 Bedside Glucose 82 80 Activated 96.3 *H Partial Thromboplast Time Sodium Level 145 H Potassium Level 4.0 Chloride Level 108 Carbon Dioxide Level 20 L Anion Gap 17 H Blood Urea Nitrogen 35 H Creatinine 2.14 H Est Glomerular 32 L Filtrat Rate mL/min Glucose Level 59 #L Calcium Level 8.9 Phosphorus Level 3.9 Magnesium Level 1.7 Creatine Kinase 67 Creatine Kinase 6.4 Index Creatinine Kinase MB 4.27 H (Mass) Troponin I 2.120 *H Test 04/10/18 08:26 04/10/18 08:37 White Blood Count 13.3 #H Red Blood Count 4.82 # Hemoglobin 13.6 #L Hematocrit 40.9 #L Mean Corpuscular 84.9 Volume Mean Corpuscular 28.2 L Hemoglobin Mean Corpuscular 33.3 Hemoglobin Concent Red Cell 13.2 Distribution Width Platelet Count 251 # Mean Platelet Volume 9.9 Immature 0.700 H Granulocytes % Neutrophils % 59.8 Lymphocytes % 29.8 Monocytes % 8.9 Eosinophils % 0.6 Basophils % 0.2 Nucleated Red Blood 0.0 Cells % Immature 0.090 H Granulocytes # Neutrophils # 8.0 H Lymphocytes # 4.0 H Monocytes # 1.2 H Eosinophils # 0.1 Basophils # 0.0 Nucleated Red Blood 0.0 Cells # Bedside Glucose 76 Medications Medications Current Medications Nitroglycerin/ Dextrose 250 ml @ 6 mls/hr ONCE STAT IV Last administered on 04/09/18at 03:10; Admin Dose 6 MLS/HR; Start 04/09/18 at 01:06; Stop 04/10/18 at 18:45 Amlodipine Besylate (Norvasc) 10 mg DAILY PO Last administered on 04/10/18at 09:45; Admin Dose 10 MG; Start 04/09/18 at 09:00 Aspirin (Halfprin) 81 mg DAILY PO Last administered on 04/10/18at 09:45; Admin Dose 81 MG; Start 04/09/18 at 09:00 Atorvastatin Calcium (Lipitor) 40 mg DAILY PO Last administered on 04/10/18at 09:45; Admin Dose 40 MG; Start 04/09/18 at 09:00 Carvedilol (Coreg) 6.25 mg BID PO Last administered on 04/10/18at 09:46; Admin Dose 6.25 MG; Start 04/09/18 at 09:00 Miscellaneous Information 1 ea NOTE XX ; Start 04/09/18 at 02:30 Glucose (Glutose) 15 gm Q15M PRN PO DECREASED GLUCOSE; Start 04/09/18 at 02:30 Glucose (Glutose) 22.5 gm Q15M PRN PO DECREASED GLUCOSE; Start 04/09/18 at 02:30 Dextrose (D50w Syringe) 25 ml Q15M PRN IV DECREASED GLUCOSE; Start 04/09/18 at 02:30 Dextrose (D50w Syringe) 50 ml Q15M PRN IV DECREASED GLUCOSE; Start 04/09/18 at 02:30 Glucagon (Glucagen) 1 mg Q15M PRN IM DECREASED GLUCOSE; Start 04/09/18 at 02:30 Glucose (Glutose) 15 gm Q15M PRN BUCCAL DECREASED GLUCOSE; Start 04/09/18 at 02:30 Pantoprazole (Protonix Tab) 40 mg DAILY@06 PO Last administered on 04/10/18at 06:20; Admin Dose 40 MG; Start 04/09/18 at 06:00 Heparin Sodium (Porcine) 250 ml @ 10 mls/hr PER PROTOCOL IV Last administered on 04/10/18at 06:26; Admin Dose 7.5 MLS/HR; Start 04/09/18 at 07:00 Heparin Sodium (Porcine) (Heparin (1000 Units/ml)) 4,000 unit PRN PRN IV PENDING LAB VALUE; Start 04/09/18 at 13:00 Lorazepam (Ativan) 1 mg Q6H PRN PO ANXIETY; Start 04/09/18 at 07:00 Clonidine (Catapres) 0.1 mg Q6H PRN PO ELEVATED BLOOD PRESSURE Last administered on 04/09/18at 21:40; Admin Dose 0.1 MG; Start 04/09/18 at 10:00 Insulin Aspart (Novolog Insulin Pen) 10 unit WITH MEALS SC Last administered on 04/09/18at 17:18; Admin Dose 10 UNIT; Start 04/09/18 at 14:00 Diagnostic Test (Pha) (Accu-Chek) 1 ea 02 XX Last administered on 04/10/18at 01:37; Admin Dose 1 EA; Start 04/10/18 at 02:00 Insulin Aspart (Novolog Insulin Pen) NOVOLOG *MILD* ALGORITHM WITH MEALS BEDTIME SC ; Start 04/09/18 at 21:00 Diphenhydramine HCl (Benadryl) 25 mg Q6H PRN PO ITCHING Last administered on 04/10/18at 09:54; Admin Dose 25 MG; Start 04/09/18 at 20:30 Insulin Glargine (Lantus) 20 units Q12 SC ; Start 04/10/18 at 09:00 MARLEN JOHNSON MD Apr 10, 2018 10:25
--- NOTE | 2018-04-10 11:00 | NUR ---
HEPARIN DRIP APTT=91.8; HEPARIN DRIP RATE ADJUSTED PER PROTOCOL. CURRENT RATE = 7.5 CC/HR (7500 UNITS); TITRATED DOWN BY 1 MG/KG/ HR TO 6.5 CC/HR (6500 UNITS); CONFIRMED AND VERIFIED WITH GERA. PHARMACIST.
--- NOTE | 2018-04-10 11:41 | PN ---
DATE: 04/10/2018 SUBJECTIVE: The patient was transferred from the intensive care unit to telemetry. No acute events noted overnight. OBJECTIVE: VITAL SIGNS: Blood pressure is 190/95, respiration 18, pulse 74, temperature 97.7. HEENT: Head is normocephalic. NECK: Supple. HEART: Regular rate. LUNGS: Show diminished breath sounds at the base. ABDOMEN: Soft, nontender to palpation without rebound or guarding. EXTREMITIES: Negative for clubbing, cyanosis, no edema. DERMATOLOGIC: No rashes. MUSCULOSKELETAL: No joint effusion. NEUROLOGIC: No change in exam. MEDICATIONS: Reviewed. LABORATORY DATA: On 04/10/2018 is pending. ASSESSMENT AND PLAN: 1. Nonoliguric acute kidney injury on top of chronic kidney disease with unknown baseline creatinine . Etiology of acute kidney injury is multifactorial secondary to hemodynamics, SATISH inhibitor effect. The patient's renal function has been improving with IV hydration. At this point, will follow up r enal panel. Will continue supportive care, renally dose all meds, avoid nephrotoxins. Would discont inue IV fluids as the patient is hypotensive and appears euvolemic. Also, continue to hold any SATISH i nhibitor or ARB. 2. Hyperkalemia. Etiology is multifactorial secondary to acute kidney injury, chronic kidney diseas e and hyperglycemia. Continue medical management. We will follow up renal panel. Continue renal di et. Continue good glycemic control. 3. Anemia, monitor H and H levels. 4. Mineral bone disorder. Monitor calcium and phosphorus levels. 5. Chest pain, possible non-ST elevation myocardial infarction. Follow up with cardiology. Continu e current medical management at this time. Continue heparin drip, possible cardiac catheterization. 6. Hypertension. Blood pressure remains elevated, will discontinue IV fluids and monitor. 7. Metabolic acidosis secondary to acute kidney injury, chronic kidney disease. The patient's ABG s hows appropriate compensation. Will continue to observe. No need for bicarbonate therapy. 8. Diabetes. Continue current insulin regimen. 9. History of coronary artery disease, history of coronary artery bypass graft. Continue medical ma nagement. 10. Dyslipidemia. Continue statin therapy. Dictated By: JEWELL CHENEY DO NR/NTS Conf#: [id number] DID#: [id number] CC: CASSIE HENRY MD; TONY PONCE MD; MEHRAN SNIDER MD;*EndCC*
--- NOTE | 2018-04-10 14:34 | CONS ---
Assessment/Plan Assessment/Plan Problems: (1) Uncontrolled type 2 diabetes mellitus Status: Chronic Comment: Blood glucose now trending low without hypoglycemia. Will reduce basal insulin dose to 20 units daily. Monitor and further adjust. Qualifiers: Glycemic state: with hyperglycemia Qualified Codes: E11.65 - Type 2 diabetes mellitus with hyperglycemia Consultation Date/Type/Reason Admit Date/Time Apr 09, 2018 at 01:12 Initial Consult Date 04/09/18 Type of Consult Endocrine Reason for Consultation DM management Requesting Provider: CASSIE HENRY MD Date/Time of Note DATE: 04/10/18 TIME: 14:29 24 HR Interval Summary Free Text/Dictation Blood sugars a little low today. Exam/Review of Systems Exam Vitals Vital Signs Date Temp Pulse Resp B/P (MAP) Pulse Ox O2 O2 Flow FiO2 Time Delivery Rate 04/10/18 85 12:29 04/10/18 97.5 11:08 04/10/18 18 190/95 98 Room Air 07:10 (126) Intake and Output 04/09/18 04/09/18 04/10/18 1515:00 23:00 07:00 IntakeIntake Total 585.0 ml 979.1 ml 333.0 ml OutputOutput Total 470 ml 380 ml 500 ml BalanceBalance 115.0 ml 599.1 ml -167.0 ml Neck: supple Respiratory: clear to auscultation Cardiovascular: regular rate and rhythm Gastrointestinal: soft Musculoskeletal: nl extremities to inspection Additional Comments POC glucose and labs reviewed Results Result Diagram: 04/10/18 0826 04/10/18 0819 Results 24hrs Laboratory Tests Test 04/09/18 17:16 04/09/18 20:08 04/09/18 20:21 04/10/18 01:36 Bedside Glucose 125 131 82 Activated 48.1 H Partial Thromboplast Time Test 04/10/18 02:13 04/10/18 02:42 04/10/18 08:19 04/10/18 08:26 Activated 96.3 *H 91.8 *H Partial Thromboplast Time Bedside Glucose 80 Sodium Level 145 H Potassium Level 4.0 Chloride Level 108 Carbon Dioxide Level 20 L Anion Gap 17 H Blood Urea Nitrogen 35 H Creatinine 2.14 H Est Glomerular 32 L Filtrat Rate mL/min Glucose Level 59 #L Calcium Level 8.9 Phosphorus Level 3.9 Magnesium Level 1.7 Creatine Kinase 67 Creatine Kinase 6.4 Index Creatinine Kinase MB 4.27 H (Mass) Troponin I 2.120 *H White Blood Count 13.3 #H Red Blood Count 4.82 # Hemoglobin 13.6 #L Hematocrit 40.9 #L Mean Corpuscular 84.9 Volume Mean Corpuscular 28.2 L Hemoglobin Mean Corpuscular 33.3 Hemoglobin Concent Red Cell 13.2 Distribution Width Platelet Count 251 # Mean Platelet Volume 9.9 Immature 0.700 H Granulocytes % Neutrophils % 59.8 Lymphocytes % 29.8 Monocytes % 8.9 Eosinophils % 0.6 Basophils % 0.2 Nucleated Red Blood 0.0 Cells % Immature 0.090 H Granulocytes # Neutrophils # 8.0 H Lymphocytes # 4.0 H Monocytes # 1.2 H Eosinophils # 0.1 Basophils # 0.0 Nucleated Red Blood 0.0 Cells # Test 04/10/18 08:37 04/10/18 11:29 04/10/18 11:30 Bedside Glucose 76 92 Creatine Kinase 62 Creatine Kinase 5.3 Index Creatinine Kinase MB 3.29 H (Mass) Troponin I 1.370 *H Medications Medication Current Medications Nitroglycerin/ Dextrose 250 ml @ 6 mls/hr ONCE STAT IV Last administered on 04/09/18at 03:10; Admin Dose 6 MLS/HR; Start 04/09/18 at 01:06; Stop 04/10/18 at 18:45 Amlodipine Besylate (Norvasc) 10 mg DAILY PO Last administered on 04/10/18at 09:45; Admin Dose 10 MG; Start 04/09/18 at 09:00 Aspirin (Halfprin) 81 mg DAILY PO Last administered on 04/10/18at 09:45; Admin Dose 81 MG; Start 04/09/18 at 09:00 Atorvastatin Calcium (Lipitor) 40 mg DAILY PO Last administered on 04/10/18at 09:45; Admin Dose 40 MG; Start 04/09/18 at 09:00 Miscellaneous Information 1 ea NOTE XX ; Start 04/09/18 at 02:30 Glucose (Glutose) 15 gm Q15M PRN PO DECREASED GLUCOSE; Start 04/09/18 at 02:30 Glucose (Glutose) 22.5 gm Q15M PRN PO DECREASED GLUCOSE; Start 04/09/18 at 02:30 Dextrose (D50w Syringe) 25 ml Q15M PRN IV DECREASED GLUCOSE; Start 04/09/18 at 02:30 Dextrose (D50w Syringe) 50 ml Q15M PRN IV DECREASED GLUCOSE; Start 04/09/18 at 02:30 Glucagon (Glucagen) 1 mg Q15M PRN IM DECREASED GLUCOSE; Start 04/09/18 at 02:30 Glucose (Glutose) 15 gm Q15M PRN BUCCAL DECREASED GLUCOSE; Start 04/09/18 at 02 :30 Pantoprazole (Protonix Tab) 40 mg DAILY@06 PO Last administered on 04/10/18at 06:20; Admin Dose 40 MG; Start 04/09/18 at 06:00 Heparin Sodium (Porcine) 250 ml @ 10 mls/hr PER PROTOCOL IV Last administered on 04/10/18at 06:26; Admin Dose 7.5 MLS/HR; Start 04/09/18 at 07:00 Heparin Sodium (Porcine) (Heparin (1000 Units/ml)) 4,000 unit PRN PRN IV PENDING LAB VALUE; Start 04/09/18 at 13:00 Lorazepam (Ativan) 1 mg Q6H PRN PO ANXIETY; Start 04/09/18 at 07:00 Clonidine (Catapres) 0.1 mg Q6H PRN PO ELEVATED BLOOD PRESSURE Last administered on 04/10/18at 11:27; Admin Dose 0.1 MG; Start 04/09/18 at 10:00 Insulin Aspart (Novolog Insulin Pen) 10 unit WITH MEALS SC Last administered on 04/10/18at 11:35; Admin Dose 10 UNIT; Start 04/09/18 at 14:00 Diagnostic Test (Pha) (Accu-Chek) 1 ea 02 XX Last administered on 04/10/18at 01:37; Admin Dose 1 EA; Start 04/10/18 at 02:00 Insulin Aspart (Novolog Insulin Pen) NOVOLOG *MILD* ALGORITHM WITH MEALS BEDTIME SC ; Start 04/09/18 at 21:00 Diphenhydramine HCl (Benadryl) 25 mg Q6H PRN PO ITCHING Last administered on 04/10/18at 09:54; Admin Dose 25 MG; Start 04/09/18 at 20:30 Insulin Glargine (Lantus) 20 units Q12 SC Last administered on 04/10/18at 11:35; Admin Dose 20 UNITS; Start 04/10/18 at 09:00 Carvedilol (Coreg) 12.5 mg BID PO ; Start 04/10/18 at 21:00 PARISH MARTINEZ MD Apr 10, 2018 14:34
--- NOTE | 2018-04-10 14:41 | PN ---
Date/Time of Note Date/Time of Note DATE: 04/10/18 TIME: 14:40 Assessment/Plan VTE Prophylaxis Risk score (from Nsg)>0 risk: 3 SCD applied (from Nsg): Yes Pharmacological prophylaxis: heparin Lines/Catheters IV Catheter Type (from Nrsg): Peripheral IV Urinary Cath still in place: No Assessment/Plan Hospital Course 62 yo male with CAD h/o CABG, DMII, CKD II, hypertension who presents with NSTEMI NSTEMI: - Likely type 1 [place] by symptoms and EKG - Aspirin, heparin - Consideration of invasive angiography per cardiology Hypertension: - Improved on Coreg and amlodipine, titrate BP meds CKD III: - stable, 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 Titration of insulin while in house per endocrine Dc home when stable Result Diagram: 04/10/1882504/10/18818 Results 24hrs Laboratory Tests Test 04/09/18 17:16 04/09/18 20:08 04/09/18 20:21 04/10/18 01:36 Bedside Glucose 125 131 82 Activated 48.1 H Partial Thromboplast Time Test 04/10/18 02:13 04/10/18 02:42 04/10/18 08:19 04/10/18 08:26 Activated 96.3 *H 91.8 *H Partial Thromboplast Time Bedside Glucose 80 Sodium Level 145 H Potassium Level 4.0 Chloride Level 108 Carbon Dioxide Level 20 L Anion Gap 17 H Blood Urea Nitrogen 35 H Creatinine 2.14 H Est Glomerular 32 L Filtrat Rate mL/min Glucose Level 59 #L Calcium Level 8.9 Phosphorus Level 3.9 Magnesium Level 1.7 Creatine Kinase 67 Creatine Kinase 6.4 Index Creatinine Kinase MB 4.27 H (Mass) Troponin I 2.120 *H White Blood Count 13.3 #H Red Blood Count 4.82 # Hemoglobin 13.6 #L Hematocrit 40.9 #L Mean Corpuscular 84.9 Volume Mean Corpuscular 28.2 L Hemoglobin Mean Corpuscular 33.3 Hemoglobin Concent Red Cell 13.2 Distribution Width Platelet Count 251 # Mean Platelet Volume 9.9 Immature 0.700 H Granulocytes % Neutrophils % 59.8 Lymphocytes % 29.8 Monocytes % 8.9 Eosinophils % 0.6 Basophils % 0.2 Nucleated Red Blood 0.0 Cells % Immature 0.090 H Granulocytes # Neutrophils # 8.0 H Lymphocytes # 4.0 H Monocytes # 1.2 H Eosinophils # 0.1 Basophils # 0.0 Nucleated Red Blood 0.0 Cells # Test 04/10/18 08:37 04/10/18 11:29 04/10/18 11:30 Bedside Glucose 76 92 Creatine Kinase 62 Creatine Kinase 5.3 Index Creatinine Kinase MB 3.29 H (Mass) Troponin I 1.370 *H Subjective 24 Hr Interval Summary Free Text/Dictation TTE shows normal EF Symptoms resolved Occasional episodes of hypertension Exam/Review of Systems Exam Vitals Vital Signs Date Temp Pulse Resp B/P (MAP) Pulse Ox O2 O2 Flow FiO2 Time Delivery Rate 04/10/18 85 12:29 04/10/18 97.5 11:08 04/10/18 18 190/95 98 Room Air 07:10 (126) Intake and Output 04/09/18 04/09/18 04/10/18 1515:00 23:00 07:00 IntakeIntake Total 585.0 ml 979.1 ml 333.0 ml OutputOutput Total 470 ml 380 ml 500 ml BalanceBalance 115.0 ml 599.1 ml -167.0 ml Constitutional: alert, oriented, well developed Psych: no complaints, nl mood/affect Head: normocephalic, atraumatic Eyes: nl conjunctiva, EOMI, nl lids, nl sclera, PERRL ENMT: nl external ears & nose, nl lips & teeth, nl nasal mucosa & septum Neck: supple, non-tender Respiratory: clear to auscultation, normal air movement Cardiovascular: regular rate and rhythm, nl pulses Gastrointestinal: soft, nl liver, spleen, non-tender Musculoskeletal: nl extremities to inspection, nl gait and stance Extremities: normal pulses Neurological: WALL ATTENDANT II-XII intact, nl mental status, nl speech, nl strength Skin: nl turgor; No rash or lesions Lymph: nl lymph nodes Results Results 24hrs Laboratory Tests Test 04/09/18 17:16 04/09/18 20:08 04/09/18 20:21 04/10/18 01:36 Bedside Glucose 125 131 82 Activated 48.1 H Partial Thromboplast Time Test 04/10/18 02:13 04/10/18 02:42 04/10/18 08:19 04/10/18 08:26 Activated 96.3 *H 91.8 *H Partial Thromboplast Time Bedside Glucose 80 Sodium Level 145 H Potassium Level 4.0 Chloride Level 108 Carbon Dioxide Level 20 L Anion Gap 17 H Blood Urea Nitrogen 35 H Creatinine 2.14 H Est Glomerular 32 L Filtrat Rate mL/min Glucose Level 59 #L Calcium Level 8.9 Phosphorus Level 3.9 Magnesium Level 1.7 Creatine Kinase 67 Creatine Kinase 6.4 Index Creatinine Kinase MB 4.27 H (Mass) Troponin I 2.120 *H White Blood Count 13.3 #H Red Blood Count 4.82 # Hemoglobin 13.6 #L Hematocrit 40.9 #L Mean Corpuscular 84.9 Volume Mean Corpuscular 28.2 L Hemoglobin Mean Corpuscular 33.3 Hemoglobin Concent Red Cell 13.2 Distribution Width Platelet Count 251 # Mean Platelet Volume 9.9 Immature 0.700 H Granulocytes % Neutrophils % 59.8 Lymphocytes % 29.8 Monocytes % 8.9 Eosinophils % 0.6 Basophils % 0.2 Nucleated Red Blood 0.0 Cells % Immature 0.090 H Granulocytes # Neutrophils # 8.0 H Lymphocytes # 4.0 H Monocytes # 1.2 H Eosinophils # 0.1 Basophils # 0.0 Nucleated Red Blood 0.0 Cells # Test 04/10/18 08:37 04/10/18 11:29 04/10/18 11:30 Bedside Glucose 76 92 Creatine Kinase 62 Creatine Kinase 5.3 Index Creatinine Kinase MB 3.29 H (Mass) Troponin I 1.370 *H Medications Medication Current Medications Nitroglycerin/ Dextrose 250 ml @ 6 mls/hr ONCE STAT IV Last administered on 04/09/18at 03:10; Admin Dose 6 MLS/HR; Start 04/09/18 at 01:06; Stop 04/10/18 at 18:45 Amlodipine Besylate (Norvasc) 10 mg DAILY PO Last administered on 04/10/18at 09:45; Admin Dose 10 MG; Start 04/09/18 at 09:00 Aspirin (Halfprin) 81 mg DAILY PO Last administered on 04/10/18at 09:45; Admin Dose 81 MG; Start 04/09/18 at 09:00 Atorvastatin Calcium (Lipitor) 40 mg DAILY PO Last administered on 04/10/18at 09:45; Admin Dose 40 MG; Start 04/09/18 at 09:00 Miscellaneous Information 1 ea NOTE XX ; Start 04/09/18 at 02:30 Glucose (Glutose) 15 gm Q15M PRN PO DECREASED GLUCOSE; Start 04/09/18 at 02:30 Glucose (Glutose) 22.5 gm Q15M PRN PO DECREASED GLUCOSE; Start 04/09/18 at 02:30 Dextrose (D50w Syringe) 25 ml Q15M PRN IV DECREASED GLUCOSE; Start 04/09/18 at 02:30 Dextrose (D50w Syringe) 50 ml Q15M PRN IV DECREASED GLUCOSE; Start 04/09/18 at 02:30 Glucagon (Glucagen) 1 mg Q15M PRN IM DECREASED GLUCOSE; Start 04/09/18 at 02:30 Glucose (Glutose) 15 gm Q15M PRN BUCCAL DECREASED GLUCOSE; Start 04/09/18 at 02:30 Pantoprazole (Protonix Tab) 40 mg DAILY@06 PO Last administered on 04/10/18at 06:20; Admin Dose 40 MG; Start 04/09/18 at 06:00 Heparin Sodium (Porcine) 250 ml @ 10 mls/hr PER PROTOCOL IV Last administered on 04/10/18at 06:26; Admin Dose 7.5 MLS/HR; Start 04/09/18 at 07:00 Heparin Sodium (Porcine) (Heparin (1000 Units/ml)) 4,000 unit PRN PRN IV PENDING LAB VALUE; Start 04/09/18 at 13:00 Lorazepam (Ativan) 1 mg Q6H PRN PO ANXIETY; Start 04/09/18 at 07:00 Clonidine (Catapres) 0.1 mg Q6H PRN PO ELEVATED BLOOD PRESSURE Last administered on 04/10/18at 11:27; Admin Dose 0.1 MG; Start 04/09/18 at 10:00 Insulin Aspart (Novolog Insulin Pen) 10 unit WITH MEALS SC Last administered on 04/10/18at 11:35; Admin Dose 10 UNIT; Start 04/09/18 at 14:00 Diagnostic Test (Pha) (Accu-Chek) 1 ea 02 XX Last administered on 04/10/18at 01:37; Admin Dose 1 EA; Start 04/10/18 at 02:00 Insulin Aspart (Novolog Insulin Pen) NOVOLOG *MILD* ALGORITHM WITH MEALS BEDTIME SC ; Start 04/09/18 at 21:00 Diphenhydramine HCl (Benadryl) 25 mg Q6H PRN PO ITCHING Last administered on 04/10/18at 09:54; Admin Dose 25 MG; Start 04/09/18 at 20:30 Carvedilol (Coreg) 12.5 mg BID PO ; Start 04/10/18 at 21:00 Insulin Glargine (Lantus) 20 units DAILY SC ; Start 04/11/18 at 09:00 CASSIE HENRY MD Apr 10, 2018 14:41
[2018-04-10] MEDS ORDERED: ACETAMINOPHEN 325 MG TAB PO PRN (16:30)
--- NOTE | 2018-04-10 18:07 | NUR ---
HEPARIN DRIP RATE ADJUSTED TO 8000 UNITS/KG/HR = 8CC/HR FOR PTT=56.9. NEXT PTT AT 1145 PM. VERIFIED AND CONFIRMED WITH PHARMACIST:
[2018-04-11] VITALS (14 sets, daily range): BP systolic 154–172; BP diastolic 83–94; PULSE 69–81; RESP 16–22
--- NOTE | 2018-04-11 01:10 | NUR ---
PTT 72.8. DECREASED HEPARIN DRIP TO 700 UNITS/HR PER PHARMACIST BRIAN
[2018-04-11] MEDS: ACCU-CHEK XX SCH (02:00)
[2018-04-11] MEDS: PANTOPRAZOLE (EC) 40 MG TAB PO SCH (05:15)
--- NOTE | 2018-04-11 06:51 | NUR ---
NO EPISODES OF CP. BP ELEVATED ONE TIME DURING THE SHIFT WHICH IS RESOLVED BY PRN CLONIDINE. ALL NEEDS ATTENDED. WILL ENDORSE TO AM SHIFT FOR CONTINUITY OF CARE
[2018-04-11] MEDS: INSULIN ASPART [NOVOLOG] 3 ML PEN SC SCH ×7 (07:55→20:14)
[2018-04-11] MEDS: ASPIRIN (EC) 81 MG TAB PO SCH (08:03)
[2018-04-11] MEDS: ATORVASTATIN 40 MG TAB PO SCH (08:03)
[2018-04-11] MEDS: AMLODIPINE 10 MG TAB PO SCH (08:04)
--- NOTE | 2018-04-11 08:13 | CONS ---
Assessment/Plan Assessment/Plan Assessment/Plan (Daily) NSEMI WITH INFEROLATERAL ST DEPRESIONS HTN OOC AKD/CKD CABG HYPERKALEMIA HLP DM -The aptient wtih hx of CABG, nstemi with inferolateral st dpressions, but currently asymptomatic -cath in am - currently pain free. Due to renal insuff, higher risk for HD -continue cv meds - on heparin gtt > d/c atmidnight off ntg drip, no acei due to ckd, -ivf Consultation Date/Type/Reason Admit Date/Time Apr 09, 2018 at 01:12 Initial Consult Date 04/09/18 Type of Consult Cardiology Requesting Provider: CASSIE HENRY MD Date/Time of Note DATE: 04/11/18 TIME: 08:11 24 HR Interval Summary Free Text/Dictation The patient is chest pain free Exam/Review of Systems Vital Signs Vitals Vital Signs Date Temp Pulse Resp B/P (MAP) Pulse Ox O2 O2 Flow FiO2 Time Delivery Rate 04/11/18 98.4 78 20 165/94 96 07:30 (117) 04/10/18 Room Air 15:22 Intake and Output 04/10/18 04/10/18 04/11/18 1414:59 22:59 06:59 IntakeIntake Total 800 ml 600 ml OutputOutput Total 500 ml BalanceBalance 800 ml 100 ml Labs Result Diagram: 04/11/18 0627 04/11/18 0627 Results 24hrs Laboratory Tests Test 04/10/18 08:19 04/10/18 08:26 04/10/18 08:37 04/10/18 11:29 Activated 91.8 *H Partial Thromboplast Time Sodium Level 145 H Potassium Level 4.0 Chloride Level 108 Carbon Dioxide Level 20 L Anion Gap 17 H Blood Urea Nitrogen 35 H Creatinine 2.14 H Est Glomerular 32 L Filtrat Rate mL/min Glucose Level 59 #L Calcium Level 8.9 Phosphorus Level 3.9 Magnesium Level 1.7 Creatine Kinase 67 Creatine Kinase 6.4 Index Creatinine Kinase MB 4.27 H (Mass) Troponin I 2.120 *H White Blood Count 13.3 #H Red Blood Count 4.82 # Hemoglobin 13.6 #L Hematocrit 40.9 #L Mean Corpuscular 84.9 Volume Mean Corpuscular 28.2 L Hemoglobin Mean Corpuscular 33.3 Hemoglobin Concent Red Cell 13.2 Distribution Width Platelet Count 251 # Mean Platelet Volume 9.9 Immature 0.700 H Granulocytes % Neutrophils % 59.8 Lymphocytes % 29.8 Monocytes % 8.9 Eosinophils % 0.6 Basophils % 0.2 Nucleated Red Blood 0.0 Cells % Immature 0.090 H Granulocytes # Neutrophils # 8.0 H Lymphocytes # 4.0 H Monocytes # 1.2 H Eosinophils # 0.1 Basophils # 0.0 Nucleated Red Blood 0.0 Cells # Bedside Glucose 76 92 Test 04/10/18 11:30 04/10/18 16:47 04/10/18 16:48 04/10/18 17:21 Creatine Kinase 62 45 Creatine Kinase 5.3 5.4 Index Creatinine Kinase MB 3.29 H 2.45 H (Mass) Troponin I 1.370 *H 1.260 *H Activated 56.9 H Partial Thromboplast Time Bedside Glucose 123 Test 04/10/18 20:25 04/11/18 00:05 04/11/18 06:27 04/11/18 08:01 Bedside Glucose 91 113 Activated 72.8 *H 57.7 H Partial Thromboplast Time White Blood Count 7.1 # Red Blood Count 4.20 L Hemoglobin 11.8 L Hematocrit 35.4 L Mean Corpuscular 84.3 Volume Mean Corpuscular 28.1 L Hemoglobin Mean Corpuscular 33.3 Hemoglobin Concent Red Cell 12.9 Distribution Width Platelet Count 202 Mean Platelet Volume 9.6 Immature 0.400 Granulocytes % Neutrophils % 52.3 Lymphocytes % 33.1 Monocytes % 11.6 H Eosinophils % 2.3 Basophils % 0.3 Nucleated Red Blood 0.0 Cells % Immature 0.030 Granulocytes # Neutrophils # 3.7 Lymphocytes # 2.3 Monocytes # 0.8 Eosinophils # 0.2 Basophils # 0.0 Nucleated Red Blood 0.0 Cells # Sodium Level 142 Potassium Level 4.1 Chloride Level 111 H Carbon Dioxide Level 22 Anion Gap 9 # Blood Urea Nitrogen 34 H Creatinine 2.15 H Est Glomerular 31 L Filtrat Rate mL/min Glucose Level 60 L Calcium Level 8.5 Phosphorus Level 4.5 Magnesium Level 1.7 Medications Medications Current Medications Amlodipine Besylate (Norvasc) 10 mg DAILY PO Last administered on 04/10/18at 09:45; Admin Dose 10 MG; Start 04/09/18 at 09:00 Aspirin (Halfprin) 81 mg DAILY PO Last administered on 04/10/18at 09:45; Admin Dose 81 MG; Start 04/09/18 at 09:00 Atorvastatin Calcium (Lipitor) 40 mg DAILY PO Last administered on 04/10/18at 0 9:45; Admin Dose 40 MG; Start 04/09/18 at 09:00 Miscellaneous Information 1 ea NOTE XX ; Start 04/09/18 at 02:30 Glucose (Glutose) 15 gm Q15M PRN PO DECREASED GLUCOSE; Start 04/09/18 at 02:30 Glucose (Glutose) 22.5 gm Q15M PRN PO DECREASED GLUCOSE; Start 04/09/18 at 02:30 Dextrose (D50w Syringe) 25 ml Q15M PRN IV DECREASED GLUCOSE; Start 04/09/18 at 02:30 Dextrose (D50w Syringe) 50 ml Q15M PRN IV DECREASED GLUCOSE; Start 04/09/18 at 02:30 Glucagon (Glucagen) 1 mg Q15M PRN IM DECREASED GLUCOSE; Start 04/09/18 at 02:30 Glucose (Glutose) 15 gm Q15M PRN BUCCAL DECREASED GLUCOSE; Start 04/09/18 at 02:30 Pantoprazole (Protonix Tab) 40 mg DAILY@06 PO Last administered on 04/11/18at 05:15; Admin Dose 40 MG; Start 04/09/18 at 06:00 Heparin Sodium (Porcine) 250 ml @ 10 mls/hr PER PROTOCOL IV Last administered on 04/10/18at 06:26; Admin Dose 7.5 MLS/HR; Start 04/09/18 at 07:00 Heparin Sodium (Porcine) (Heparin (1000 Units/ml)) 4,000 unit PRN PRN IV PENDING LAB VALUE; Start 04/09/18 at 13:00 Lorazepam (Ativan) 1 mg Q6H PRN PO ANXIETY; Start 04/09/18 at 07:00 Clonidine (Catapres) 0.1 mg Q6H PRN PO ELEVATED BLOOD PRESSURE Last administered on 04/11/18at 03:41; Admin Dose 0.1 MG; Start 04/09/18 at 10:00 Insulin Aspart (Novolog Insulin Pen) 10 unit WITH MEALS SC Last administered on 04/10/18at 17:25; Admin Dose 10 UNIT; Start 04/09/18 at 14:00 Diagnostic Test (Pha) (Accu-Chek) 1 ea 02 XX Last administered on 04/10/18at 01:37; Admin Dose 1 EA; Start 04/10/18 at 02:00 Insulin Aspart (Novolog Insulin Pen) NOVOLOG *MILD* ALGORITHM WITH MEALS BEDTIME SC ; Start 04/09/18 at 21:00 Diphenhydramine HCl (Benadryl) 25 mg Q6H PRN PO ITCHING Last administered on 04/10/18at 09:54; Admin Dose 25 MG; Start 04/09/18 at 20:30 Carvedilol (Coreg) 12.5 mg BID PO Last administered on 04/10/18at 20:28; Admin Dose 12.5 MG; Start 04/10/18 at 21:00 Insulin Glargine (Lantus) 20 units DAILY SC ; Start 04/11/18 at 09:00 Acetaminophen (Tylenol Tab) 650 mg Q4H PRN PO MILD PAIN(1-3)OR ELEVATED TEMP; Start 04/10/18 at 16:30 MEHRAN SNIDER MD Apr 11, 2018 08:13
[2018-04-11] MEDS: INSULIN GLARGINE [LANTus] (100 UNITS/ML) SYG SC SCH (08:23)
--- NOTE | 2018-04-11 08:46 | PN ---
DATE: 04/11/2018 SUBJECTIVE: The patient is stable, no events overnight. No fevers, chills, nausea, or vomiting. OBJECTIVE: VITAL SIGNS: Blood pressure is 165/94, pulse 78, respirations 20, temperature 98.4, pulse 78, respir ations 20, temperature 98.4. HEENT: Head is normocephalic. NECK: Supple. HEART: Regular rate. LUNGS: Show diminished breath sounds at the base. ABDOMEN: Soft, nontender to palpation without rebound or guarding. EXTREMITIES: Negative for clubbing, cyanosis, no edema. DERMATOLOGIC: No rashes. MUSCULOSKELETAL: No joint effusion. NEUROLOGIC: No change in exam. MEDICATIONS: Reviewed. LABORATORY DATA: Shows sodium 142, potassium 4.1, chloride 111, BUN 34, creatinine 2.15. White coun t 7.1, hemoglobin 9.8, platelet count of 202. INR and PTT was reviewed. ASSESSMENT AND PLAN: 1. Nonoliguric acute kidney injury on top of chronic kidney disease with unknown baseline creatinine . Etiology is multifactorial secondary to hemodynamics. The patient's renal function has been slowl y improving. At this point, continue current treatment plan, supportive care, renally dose all medic chris. 2. Hyperkalemia, improved. Continue to monitor. 3. Anemia. Monitor hemoglobin and hematocrit levels. 4. Mineral bone disorder. Monitor calcium and phosphorus levels. 5. Non-ST elevation myocardial infarction. The patient currently is on medical management on hepari n. Continue to monitor. Follow up with cardiology. 6. Hypertension. Continue current blood pressure regimen. Continue to hold SATISH inhibitor in the se tting of acute kidney injury. 7. Metabolic acidosis, improving. Continue to monitor. 8. Diabetes. Continue current insulin regimen. 9. History of coronary artery disease, status post coronary artery bypass graft. Continue current t reatment plan. 10. Dyslipidemia. Continue statin therapy. Dictated By: JEWELL CHENEY DO NR/NTS Conf#: [id number] DID#: [id number] CC: CASSIE HENRY MD; MEHRAN SNIDER MD; TONY PONCE MD;*EndCC*
--- NOTE | 2018-04-11 13:50 | RADRPT ---
Vent Rate: 84 bpm RR Interval: 0 msec MD Interval: 176 msec QRS Duration: 82 msec QT Interval: 354 msec QTC Interval: 418 msec P-R-T [place]: 61 - 31 - 112 degrees Normal sinus rhythm ST amp; T wave abnormality, consider lateral ischemia Abnormal ECG Electronically Signed By: Murtaza Goff [id number]
--- NOTE | 2018-04-11 16:36 | PN ---
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 Titration of insulin while in house per endocrine Prophylaxis: Heparin Dc home when stable Result Diagram: 04/11/1862604/11/18626 Results 24hrs Laboratory Tests Test 04/10/18 16:47 04/10/18 16:48 04/10/18 17:21 04/10/18 20:25 Creatine Kinase 45 Creatine Kinase 5.4 Index Creatinine Kinase MB 2.45 H (Mass) Troponin I 1.260 *H Activated 56.9 H Partial Thromboplast Time Bedside Glucose 123 91 Test 04/11/18 00:05 04/11/18 06:27 04/11/18 08:01 04/11/18 12:10 Activated 72.8 *H 57.7 H Partial Thromboplast Time White Blood Count 7.1 # Red Blood Count 4.20 L Hemoglobin 11.8 L Hematocrit 35.4 L Mean Corpuscular 84.3 Volume Mean Corpuscular 28.1 L Hemoglobin Mean Corpuscular 33.3 Hemoglobin Concent Red Cell 12.9 Distribution Width Platelet Count 202 Mean Platelet Volume 9.6 Immature 0.400 Granulocytes % Neutrophils % 52.3 Lymphocytes % 33.1 Monocytes % 11.6 H Eosinophils % 2.3 Basophils % 0.3 Nucleated Red Blood 0.0 Cells % Immature 0.030 Granulocytes # Neutrophils # 3.7 Lymphocytes # 2.3 Monocytes # 0.8 Eosinophils # 0.2 Basophils # 0.0 Nucleated Red Blood 0.0 Cells # Sodium Level 142 Potassium Level 4.1 Chloride Level 111 H Carbon Dioxide Level 22 Anion Gap 9 # Blood Urea Nitrogen 34 H Creatinine 2.15 H Est Glomerular 31 L Filtrat Rate mL/min Glucose Level 60 L Calcium Level 8.5 Phosphorus Level 4.5 Magnesium Level 1.7 Bedside Glucose 113 149 Subjective 24 Hr Interval Summary Constitutional: no complaints Exam/Review of Systems Exam Vitals Vital Signs Date Temp Pulse Resp B/P (MAP) Pulse Ox O2 O2 Flow FiO2 Time Delivery Rate 04/11/18 74 16:33 04/11/18 98.3 18 171/91 99 15:36 (117) 04/10/18 Room Air 15:22 Intake and Output 04/10/18 04/10/18 04/11/18 1515:00 23:00 07:00 IntakeIntake Total 800 ml 600 ml OutputOutput Total 500 ml BalanceBalance 800 ml 100 ml Constitutional: alert, oriented Respiratory: clear to auscultation Cardiovascular: regular rate and rhythm Gastrointestinal: soft; No distended Musculoskeletal: nl extremities to inspection Results Results 24hrs Laboratory Tests Test 04/10/18 16:47 04/10/18 16:48 04/10/18 17:21 04/10/18 20:25 Creatine Kinase 45 Creatine Kinase 5.4 Index Creatinine Kinase MB 2.45 H (Mass) Troponin I 1.260 *H Activated 56.9 H Partial Thromboplast Time Bedside Glucose 123 91 Test 04/11/18 00:05 04/11/18 06:27 04/11/18 08:01 04/11/18 12:10 Activated 72.8 *H 57.7 H Partial Thromboplast Time White Blood Count 7.1 # Red Blood Count 4.20 L Hemoglobin 11.8 L Hematocrit 35.4 L Mean Corpuscular 84.3 Volume Mean Corpuscular 28.1 L Hemoglobin Mean Corpuscular 33.3 Hemoglobin Concent Red Cell 12.9 Distribution Width Platelet Count 202 Mean Platelet Volume 9.6 Immature 0.400 Granulocytes % Neutrophils % 52.3 Lymphocytes % 33.1 Monocytes % 11.6 H Eosinophils % 2.3 Basophils % 0.3 Nucleated Red Blood 0.0 Cells % Immature 0.030 Granulocytes # Neutrophils # 3.7 Lymphocytes # 2.3 Monocytes # 0.8 Eosinophils # 0.2 Basophils # 0.0 Nucleated Red Blood 0.0 Cells # Sodium Level 142 Potassium Level 4.1 Chloride Level 111 H Carbon Dioxide Level 22 Anion Gap 9 # Blood Urea Nitrogen 34 H Creatinine 2.15 H Est Glomerular 31 L Filtrat Rate mL/min Glucose Level 60 L Calcium Level 8.5 Phosphorus Level 4.5 Magnesium Level 1.7 Bedside Glucose 113 149 Medications Medication Current Medications Amlodipine Besylate (Norvasc) 10 mg DAILY PO Last administered on 04/11/18at 08:04; Admin Dose 10 MG; Start 04/09/18 at 09:00 Aspirin (Halfprin) 81 mg DAILY PO Last administered on 04/11/18at 08:03; Admin Dose 81 MG; Start 04/09/18 at 09:00 Atorvastatin Calcium (Lipitor) 40 mg DAILY PO Last administered on 04/11/18at 08:03; Admin Dose 40 MG; Start 04/09/18 at 09:00 Miscellaneous Information 1 ea NOTE XX ; Start 04/09/18 at 02:30 Glucose (Glutose) 15 gm Q15M PRN PO DECREASED GLUCOSE; Start 04/09/18 at 02:30 Glucose (Glutose) 22.5 gm Q15M PRN PO DECREASED GLUCOSE; Start 04/09/18 at 02:30 Dextrose (D50w Syringe) 25 ml Q15M PRN IV DECREASED GLUCOSE; Start 04/09/18 at 02:30 Dextrose (D50w Syringe) 50 ml Q15M PRN IV DECREASED GLUCOSE; Start 04/09/18 at 02:30 Glucagon (Glucagen) 1 mg Q15M PRN IM DECREASED GLUCOSE; Start 04/09/18 at 02:30 Glucose (Glutose) 15 gm Q15M PRN BUCCAL DECREASED GLUCOSE; Start 04/09/18 at 02:30 Pantoprazole (Protonix Tab) 40 mg DAILY@06 PO Last administered on 04/11/18at 05:15; Admin Dose 40 MG; Start 04/09/18 at 06:00 Heparin Sodium (Porcine) 250 ml @ 10 mls/hr PER PROTOCOL IV Last administered on 04/10/18at 06:26; Admin Dose 7.5 MLS/HR; Start 04/09/18 at 07:00 Heparin Sodium (Porcine) (Heparin (1000 Units/ml)) 4,000 unit PRN PRN IV PENDING LAB VALUE; Start 04/09/18 at 13:00 Lorazepam (Ativan) 1 mg Q6H PRN PO ANXIETY; Start 04/09/18 at 07:00 Clonidine (Catapres) 0.1 mg Q6H PRN PO ELEVATED BLOOD PRESSURE Last administered on 04/11/18 14:39; Admin Dose 0.1 MG; Start 04/09/18 at 10:00 Insulin Aspart (Novolog Insulin Pen) 10 unit WITH MEALS SC Last administered on 04/11/18 12:18; Admin Dose 10 UNIT; Start 04/09/18 at 14:00 Diagnostic Test (Pha) (Accu-Chek) 1 ea 02 XX Last administered on 04/10/18at 01:37; Admin Dose 1 EA; Start 04/10/18 at 02:00 Insulin Aspart (Novolog Insulin Pen) NOVOLOG *MILD* ALGORITHM WITH MEALS BEDTIME SC Last administered on 04/11/18 12:18; Admin Dose 1 UNIT; Start 04/09/18 at 21:00 Diphenhydramine HCl (Benadryl) 25 mg Q6H PRN PO ITCHING Last administered on 04/10/18at 09:54; Admin Dose 25 MG; Start 04/09/18 at 20:30 Carvedilol (Coreg) 12.5 mg BID PO Last administered on 04/11/18 08:04; Admin Dose 12.5 MG; Start 04/10/18 at 21:00 Insulin Glargine (Lantus) 20 units DAILY SC Last administered on 04/11/18 08:23; Admin Dose 20 UNITS; Start 04/11/18 at 09:00 Acetaminophen (Tylenol Tab) 650 mg Q4H PRN PO MILD PAIN(1-3)OR ELEVATED TEMP; Start 04/10/18 at 16:30 Acetylcysteine (Nac) 600 mg BID PO ; Start 04/11/18 at 09:00 ALEX CASTRO Apr 11, 2018 16:36
[2018-04-11] MEDS: ACETYLCYSTEINE 600 MG CAP PO SCH ×2 (16:48→20:13)
--- NOTE | 2018-04-11 18:19 | CONS ---
Assessment/Plan Assessment/Plan Problems: (1) Uncontrolled type 2 diabetes mellitus Status: Chronic Comment: BG in perfect control on current insulin doses w/o any adjunctive oral meds. Will cont. these doses. Pt. to have L heart cath tomorrow. Does not need D5 while NPO given current BG levels. Will monitor and cont. to follow w/ you. Qualifiers: Glycemic state: with hyperglycemia Qualified Codes: E11.65 - Type 2 diabetes mellitus with hyperglycemia Consultation Date/Type/Reason Admit Date/Time Apr 09, 2018 at 01:12 Initial Consult Date 04/09/18 Type of Consult Endocrinology Reason for Consultation T2DM OOC Requesting Provider: CASSIE HENRY MD Date/Time of Note DATE: 04/11/18 TIME: 18:16 24 HR Interval Summary Constitutional: no complaints, improved Detailed Summary Respiratory: no complaints Cardiovascular: no complaints Gastrointestinal: no complaints Genitourinary: no complaints Musculoskeletal: no complaints Neurologic: no complaints Exam/Review of Systems Exam Vitals VS - Last 72 Hours, by Label Date Temp Pulse Resp B/P (MAP) Pulse Ox O2 O2 Flow FiO2 Time Delivery Rate 04/11/18 74 16:33 04/11/18 98.3 78 18 171/91 99 15:36 (117) 04/11/18 81 12:23 04/11/18 98.4 80 20 170/83 97 11:21 (112) 04/11/18 77 08:37 04/11/18 98.4 78 20 165/94 96 07:30 (117) 04/11/18 154/84 05:18 (107) 04/11/18 69 04:00 04/11/18 98.3 80 20 172/87 97 03:44 (115) 04/11/18 98.3 78 22 172/87 95 03:12 (115) 04/11/18 76 00:00 04/10/18 98.6 20 155/81 98 23:58 (105) 04/10/18 82 20:00 04/10/18 97.9 88 20 155/81 98 19:28 (105) 04/10/18 79 16:37 04/10/18 98.2 82 20 140/76 97 Room Air 15:22 (97) 04/10/18 85 12:29 04/10/18 97.5 87 11:08 04/10/18 78 10:41 04/10/18 97.7 74 18 190/95 98 Room Air 07:10 (126) 04/10/18 97.5 75 16 158/72 96 Room Air 04:00 (100) 04/10/18 80 03:38 04/10/18 79 16 169/82 99 Room Air 02:00 (111) 04/10/18 70 11 148/78 95 01:30 (101) 04/10/18 74 14 162/79 90 Room Air 01:00 (106) 04/10/18 67 12 134/80 94 00:30 (98) 04/10/18 97.7 70 15 132/75 94 Room Air 00:00 (94) 04/10/18 69 00:00 04/09/18 70 11 142/82 94 23:30 (102) 04/09/18 74 13 146/80 95 Room Air 23:00 (102) 04/09/18 77 14 181/91 96 22:30 (121) 04/09/18 82 14 176/90 99 Room Air 22:00 (118) 04/09/18 75 13 183/89 97 21:30 (120) 04/09/18 76 16 166/90 97 Room Air 21:00 (115) 04/09/18 78 15 175/89 98 20:30 (117) 04/09/18 76 20:00 04/09/18 97.8 78 17 174/89 97 Room Air 20:00 (117) 04/09/18 79 19 155/88 98 19:30 (110) 04/09/18 85 20 163/96 93 Room Air 19:00 (118) 04/09/18 77 16 154/81 95 Room Air 18:00 (105) 04/09/18 72 12 147/77 97 Room Air 17:15 (100) 04/09/18 74 17 154/82 95 17:00 (106) 04/09/18 70 16:00 04/09/18 97.7 71 13 126/74 97 Room Air 16:00 (91) 04/09/18 69 11 136/72 95 15:45 (93) 04/09/18 69 9 136/73 94 15:30 (94) 04/09/18 69 11 121/70 95 15:15 (87) 04/09/18 69 11 128/69 95 Room Air 15:00 (88) 04/09/18 74 15 154/81 96 14:45 (105) 04/09/18 70 11 130/71 95 14:30 (90) 04/09/18 75 15 147/79 95 14:15 (101) 04/09/18 73 12 141/78 94 Room Air 14:00 (99) 04/09/18 75 13 149/78 95 13:45 (101) 04/09/18 84 16 152/91 96 13:30 (111) 04/09/18 79 16 157/84 95 13:15 (108) 04/09/18 73 13 152/80 94 Room Air 13:00 (104) 04/09/18 74 13 148/78 95 12:45 (101) 04/09/18 74 11 150/78 93 12:30 (102) 04/09/18 74 10 147/76 94 12:15 (99) 04/09/18 76 12:00 04/09/18 97.9 75 11 151/78 95 Room Air 12:00 (102) 04/09/18 76 11 158/78 94 Room Air 11:45 (104) 04/09/18 77 10 160/79 94 Room Air 11:30 (106) 04/09/18 80 14 180/89 93 Room Air 11:00 (119) 04/09/18 91 17 210/99 95 Room Air 10:45 (136) 04/09/18 83 13 179/96 94 Room Air 10:30 (123) 04/09/18 83 14 177/90 94 Room Air 10:15 (119) 04/09/18 88 17 96 Room Air 10:00 04/09/18 86 15 159/70 95 Room Air 09:45 (99) 04/09/18 87 16 201/86 98 Room Air 09:30 (124) 04/09/18 85 14 177/90 94 Room Air 09:15 (119) 04/09/18 98 15 200/104 97 Room Air 09:00 (136) 04/09/18 89 15 173/90 95 Room Air 08:45 (117) 04/09/18 87 15 96 08:30 04/09/18 89 13 162/84 96 Room Air 08:15 (110) 04/09/18 97.8 85 14 158/87 97 Room Air 08:00 (110) 04/09/18 88 08:00 04/09/18 83 14 156/83 96 Room Air 07:45 (107) 04/09/18 86 12 155/85 95 Room Air 07:30 (108) 04/09/18 90 10 152/81 95 Room Air 07:15 (104) 04/09/18 96 13 146/80 92 Room Air 07:00 (102) 04/09/18 93 14 159/92 94 06:45 (114) 04/09/18 99 14 165/89 98 Room Air 06:30 (114) 04/09/18 101 25 164/94 98 06:15 (117) 04/09/18 97 11 156/89 93 Room Air 06:00 (111) 04/09/18 98 18 160/90 95 05:45 (113) 04/09/18 90 14 171/96 97 Room Air 05:30 (121) 04/09/18 94 17 165/96 95 05:15 (119) 04/09/18 94 17 169/93 96 Room Air 05:00 (118) 04/09/18 93 16 151/84 94 04:45 (106) 04/09/18 95 19 152/83 95 Room Air 04:30 (106) 04/09/18 102 19 152/91 96 04:15 (111) 04/09/18 97.8 97 22 154/84 95 Room Air 04:00 (107) 04/09/18 97 04:00 04/09/18 100 24 159/84 100 03:45 (109) 04/09/18 98 14 150/93 95 Room Air 03:30 (112) 04/09/18 101 17 144/84 97 03:15 (104) 04/09/18 97.7 100 15 126/90 95 Room Air 03:00 (102) 04/09/18 102 02:47 04/09/18 104 16 155/69 93 Room Air 01:36 (97) 04/08/18 100 18 136/75 96 Room Air 23:41 (95) 04/08/18 99 20 136/75 100 Room Air 23:28 (95) 04/08/18 99 19 204/100 99 Room Air 22:40 (134) 04/08/18 97.2 103 18 196/94 97 21:00 (128) Vital Signs Date Temp Pulse Resp B/P (MAP) Pulse Ox O2 O2 Flow FiO2 Time Delivery Rate 04/11/18 74 16:33 04/11/18 98.3 18 171/91 99 15:36 (117) 04/10/18 Room Air 15:22 Intake and Output 04/10/18 04/10/18 04/11/18 1515:00 23:00 07:00 IntakeIntake Total 800 ml 600 ml OutputOutput Total 500 ml BalanceBalance 800 ml 100 ml Constitutional: alert, oriented, obese Psych: no complaints, nl mood/affect Respiratory: clear to auscultation, normal air movement Cardiovascular: regular rate and rhythm, nl pulses; No edema, No murmurs/extra sounds, No rub Gastrointestinal: soft, nl liver, spleen, non-tender, bowel sounds; No mass, No rebound or guarding Musculoskeletal: nl extremities to inspection Extremities: normal pulses; No cyanosis, No clubbing, No edema Neurological: 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 intact, nl mental status, nl speech, nl strength Additional Comments Bedside Glucose - 72 Hours Test 04/09/18 01:09 04/09/18 03:27 04/09/18 06:31 04/09/18 09:18 Bedside 349 334 286 251 Glucose mg/dL (70-220) mg/dL (70-220) mg/dL (70-220) mg/dL (70-220) H H H H Test 04/09/18 13:05 04/09/18 14:15 04/09/18 17:16 04/09/18 20:21 Bedside 189 218 125 131 Glucose mg/dL (70-220) mg/dL (70-220) mg/dL (70-220) mg/dL (70-220) Test 04/10/18 01:36 04/10/18 02:42 04/10/18 08:37 04/10/18 11:29 Bedside 82 80 76 92 Glucose mg/dL (70-220) mg/dL (70-220) mg/dL (70-220) mg/dL (70-220) Test 04/10/18 17:21 04/10/18 20:25 04/11/18 08:01 04/11/18 12:10 Bedside 123 91 113 149 Glucose mg/dL (70-220) mg/dL (70-220) mg/dL (70-220) mg/dL (70-220) Test 04/11/18 17:04 Bedside 124 Glucose mg/dL (70-220) Results Result Diagram: 04/11/18 0627 04/11/18 0627 Results 24hrs Laboratory Tests Test 04/10/18 20:25 04/11/18 00:05 04/11/18 06:27 04/11/18 08:01 Bedside Glucose 91 113 Activated 72.8 *H 57.7 H Partial Thromboplast Time White Blood Count 7.1 # Red Blood Count 4.20 L Hemoglobin 11.8 L Hematocrit 35.4 L Mean Corpuscular 84.3 Volume Mean Corpuscular 28.1 L Hemoglobin Mean Corpuscular 33.3 Hemoglobin Concent Red Cell 12.9 Distribution Width Platelet Count 202 Mean Platelet Volume 9.6 Immature 0.400 Granulocytes % Neutrophils % 52.3 Lymphocytes % 33.1 Monocytes % 11.6 H Eosinophils % 2.3 Basophils % 0.3 Nucleated Red Blood 0.0 Cells % Immature 0.030 Granulocytes # Neutrophils # 3.7 Lymphocytes # 2.3 Monocytes # 0.8 Eosinophils # 0.2 Basophils # 0.0 Nucleated Red Blood 0.0 Cells # Sodium Level 142 Potassium Level 4.1 Chloride Level 111 H Carbon Dioxide Level 22 Anion Gap 9 # Blood Urea Nitrogen 34 H Creatinine 2.15 H Est Glomerular 31 L Filtrat Rate mL/min Glucose Level 60 L Calcium Level 8.5 Phosphorus Level 4.5 Magnesium Level 1.7 Test 04/11/18 12:10 04/11/18 16:23 04/11/18 17:04 Bedside Glucose 149 124 Activated 64.3 H Partial Thromboplast Time Medications Medication Current Medications Amlodipine Besylate (Norvasc) 10 mg DAILY PO Last administered on 04/11/18at 08:04; Admin Dose 10 MG; Start 04/09/18 at 09:00 Aspirin (Halfprin) 81 mg DAILY PO Last administered on 04/11/18at 08:03; Admin Dose 81 MG; Start 04/09/18 at 09:00 Atorvastatin Calcium (Lipitor) 40 mg DAILY PO Last administered on 04/11/18at 08:03; Admin Dose 40 MG; Start 04/09/18 at 09:00 Miscellaneous Information 1 ea NOTE XX ; Start 04/09/18 at 02:30 Glucose (Glutose) 15 gm Q15M PRN PO DECREASED GLUCOSE; Start 04/09/18 at 02:30 Glucose (Glutose) 22.5 gm Q15M PRN PO DECREASED GLUCOSE; Start 04/09/18 at 02:30 Dextrose (D50w Syringe) 25 ml Q15M PRN IV DECREASED GLUCOSE; Start 04/09/18 at 02:30 Dextrose (D50w Syringe) 50 ml Q15M PRN IV DECREASED GLUCOSE; Start 04/09/18 at 02:30 Glucagon (Glucagen) 1 mg Q15M PRN IM DECREASED GLUCOSE; Start 04/09/18 at 02:30 Glucose (Glutose) 15 gm Q15M PRN BUCCAL DECREASED GLUCOSE; Start 04/09/18 at 02:30 Pantoprazole (Protonix Tab) 40 mg DAILY@06 PO Last administered on 04/11/18at 05:15; Admin Dose 40 MG; Start 04/09/18 at 06:00 Heparin Sodium (Porcine) 250 ml @ 10 mls/hr PER PROTOCOL IV Last administered on 04/10/18at 06:26; Admin Dose 7.5 MLS/HR; Start 04/09/18 at 07:00 Heparin Sodium (Porcine) (Heparin (1000 Units/ml)) 4,000 unit PRN PRN IV PENDING LAB VALUE; Start 04/09/18 at 13:00 Lorazepam (Ativan) 1 mg Q6H PRN PO ANXIETY; Start 04/09/18 at 07:00 Clonidine (Catapres) 0.1 mg Q6H PRN PO ELEVATED BLOOD PRESSURE Last ad ministered on 04/11/18at 14:39; Admin Dose 0.1 MG; Start 04/09/18 at 10:00 Insulin Aspart (Novolog Insulin Pen) 10 unit WITH MEALS SC Last administered on 04/11/18at 17:12; Admin Dose 10 UNIT; Start 04/09/18 at 14:00 Diagnostic Test (Pha) (Accu-Chek) 1 ea 02 XX Last administered on 04/10/18at 01:37; Admin Dose 1 EA; Start 04/10/18 at 02:00 Insulin Aspart (Novolog Insulin Pen) NOVOLOG *MILD* ALGORITHM WITH MEALS BEDTIME SC Last administered on 04/11/18at 17:13; Admin Dose 1 UNIT; Start 04/09/18 at 21:00 Diphenhydramine HCl (Benadryl) 25 mg Q6H PRN PO ITCHING Last administered on 04/10/18at 09:54; Admin Dose 25 MG; Start 04/09/18 at 20:30 Carvedilol (Coreg) 12.5 mg BID PO Last administered on 04/11/18 08:04; Admin Dose 12.5 MG; Start 04/10/18 at 21:00 Insulin Glargine (Lantus) 20 units DAILY SC Last administered on 04/11/18at 08:23; Admin Dose 20 UNITS; Start 04/11/18 at 09:00 Acetaminophen (Tylenol Tab) 650 mg Q4H PRN PO MILD PAIN(1-3)OR ELEVATED TEMP; Start 04/10/18 at 16:30 Acetylcysteine (Nac) 600 mg BID PO Last administered on 04/11/18at 16:48; Admin Dose 600 MG; Start 04/11/18 at 09:00 FCO REYNAGA MD Apr 11, 2018 18:19
--- NOTE | 2018-04-11 18:42 | NUR ---
CARE NOTES HEPARIN DRIP ONGOING, PT FOR HEART CATHETERIZATION TOMORROW, HEPARIN DRIP TO BE DISCONTINUED AT 0300 ORDERED. PT. CONSENTED FOR CARDIAC CATHETERIZATION. PER DR. REYNAGA, BLOOD GLUCOSE LEVELS WILL BE CHECKED Q 4 HOURS WHILE NPO, NO NEED FOR D5 IV FLUID WHILE NPO AND PT MAY RECEIVE USUAL DOSE OF LANTUS WHILE NPO. UNABLE TO PUT ORDER TO CHANGE FUNGERSTICK BLOOD GLUCOSE AT THIS TIME IT WILL DISCONTINUE CURRENT FINGERSTICK GLUCOSE CHECK ORDERS AND PT WON'T BE NPO TILL MIDNIGHT AND TERRELL HAS SCHEDULED GLUCOSE CHECK AT 21OO TONIGHT. WILL ENDORSE TO ONCOMING RN TO PUT Q 4 HOURS FINGERSTICK ORDER WHEN PT IS NPO.
--- NOTE | 2018-04-11 19:20 | NUR ---
HEPARIN DRIP HEPATIN DRIP CURRENTLY AT THERAPEUTIC LEVEL; NO CHANGE TO RATE PER PROTOCOL; NEXT PTT LEVEL AT 2230 TONIGHT.
--- NOTE | 2018-04-11 22:31 | NUR ---
HEPATIN DRIP STILL AT THERAPEUTIC LEVEL. NO CHANGE TO RATE PER PROTOCOL.
[2018-04-12] VITALS (21 sets, daily range): BP systolic 128–179; BP diastolic 41–98; PULSE 66–91; RESP 10–24
[2018-04-12] MEDS: INSULIN ASPART [NOVOLOG] 3 ML PEN SC SCH ×9 (01:12→20:58)
[2018-04-12] MEDS: PANTOPRAZOLE (EC) 40 MG TAB PO SCH (05:30)
--- NOTE | 2018-04-12 06:53 | NUR ---
NO COMPLAINS OF CP THE WHOLE SHIFT. DC'D HEPARIN DRIP AT 0300 TIME. KEPT NPO POST MIDNIGHT. WILL ENDORSE TO AM SHIFT FOR CONTINUITY OF CARE
[2018-04-12] MEDS: AMLODIPINE 10 MG TAB PO SCH (08:20)
[2018-04-12] MEDS: ACETYLCYSTEINE 600 MG CAP PO SCH ×2 (08:20→20:51)
[2018-04-12] MEDS: ASPIRIN (EC) 81 MG TAB PO SCH (08:20)
[2018-04-12] MEDS: ATORVASTATIN 40 MG TAB PO SCH (08:20)
[2018-04-12] MEDS ORDERED: SOD CHLORIDE 0.9% 1,000 ML IV ONE (08:30)
[2018-04-12] MEDS: INSULIN GLARGINE [LANTus] (100 UNITS/ML) SYG SC SCH (08:30)
--- NOTE | 2018-04-12 08:51 | PN ---
DATE: 04/12/2018 SUBJECTIVE: The patient is stable, pending cardiac catheterization today. Please note I spoke with the patient's family at bedside informing them of the risks and benefits of cardiac catheterization i ncluding the possibility of contrast-associated nephropathy. The patient has moderate risk. The jessica munoz's family voiced understanding and agreed to proceed with the procedure. No other events noted. OBJECTIVE: VITAL SIGNS: Blood pressure is 138/76, respirations 18, pulse 74, temperature 98.1. HEENT: Head is normocephalic. NECK: Supple. HEART: Regular rate. LUNGS: Show diminished breath sounds at the base. ABDOMEN: Soft, nontender to palpation without rebound or guarding. EXTREMITIES: Negative for clubbing, cyanosis, no edema. DERMATOLOGIC: No rashes. MUSCULOSKELETAL: No joint effusion. NEUROLOGIC: No change in exam. MEDICATIONS: Reviewed. LABORATORY DATA: Reviewed. ASSESSMENT AND PLAN: 1. Nonoliguric acute kidney injury on top of chronic kidney disease with unknown baseline creatinine . Etiology of acute kidney injury is secondary to hemodynamics. Renal function has subsequently sta bilized around creatinine of 2.1 mg/dL. The patient has moderate risk for contrast-associated nephro matheus given the patient's underlying kidney disease, diabetes. Please note I did discuss with patien t's family the risks and benefits. They are made aware and they have agreed to proceed with the proc edure. We will continue to optimize the patient and continue Mucomyst and gentle IV hydration. 2. Hyperkalemia, improved. Continue to monitor. 3. Anemia. Monitor hemoglobin and hematocrit levels. 4. Mineral bone disorder. Monitor calcium and phosphorus levels. 5. Non-ST elevation myocardial infarction. Continue medical management. Continue heparin drip. Fo llow up with cardiology. 6. Hypertension. Continue current blood pressure regimen. 7. Metabolic acidosis, improved. 8. Diabetes. Continue current insulin regimen. 9. History of coronary artery disease status post coronary artery bypass graft. 10. Dyslipidemia. Continue statin therapy. Dictated By: JEWELL CHENEY DO NR/NTS Conf#: [id number] DID#: [id number] CC: MEHRAN SNIDER MD; ALEX CASTRO MD; TONY PONCE MD;*End*
[2018-04-12] MEDS: DEXTROSE 5%-0.45% NACL 500 ML IV SCH (09:38)
[2018-04-12] MEDS ORDERED: HEPARIN 1000 UNITS/NS (A-LINE) 1,000 ML ONE (13:11)
[2018-04-12] MEDS ORDERED: MIDAZOLAM 1 MG/ML 2 ML INJ ONE (13:11)
[2018-04-12] MEDS ORDERED: LIDOCAINE 1% (MDV) 20 ML INJ ONE (13:11)
[2018-04-12] MEDS ORDERED: SOD CHLORIDE 0.9% 500 ML ONE (13:11)
[2018-04-12] MEDS ORDERED: IODIXANOL LOCM 100 ML BTL ONE (13:11)
[2018-04-12] MEDS ORDERED: FENTAnyl 50 MCG/ML VIAL ONE (13:11)
[2018-04-12] MEDS: SOD CHLORIDE 0.9% 1,000 ML IV SCH ×2 (14:25→17:33)
[2018-04-12] MEDS ORDERED: AL HYDROX/MG HYDROX/SIMETH 30 ML CUP PO PRN (14:30)
[2018-04-12] MEDS ORDERED: ACETAMINOPHEN 325 MG TAB PO PRN (14:30)
[2018-04-12] MEDS ORDERED: ONDANSETRON 4 MG INJ IV PRN (14:30)
--- NOTE | 2018-04-12 14:39 | OPR ---
Date/Time of Note Date/Time of Note DATE: 04/12/18 TIME: 14:28 Operative Report Procedure Date: Apr 12, 2018 Preoperative Diagnosis Myocardial infarction Postoperative Diagnosis Coronary artery disease Operation/Procedure Performed Left heart catheterization Right and left coronary angiogram and bypass grafts Interpretation and supervision of right and left coronary angiogram and bypass grafts Left ventricular pressure measurements Right femoral artery approach with ultrasound guidance Surgeon see signature line Soil Science Professor As per Channel Manager Anesthesia Type: MAC Estimated Blood Loss: minimal Transfusion none Specimen None Grafts/Implants none Complications none Pt Condition Post Procedure: stable Procedure Description Findings Hemodynamics LV pressure 148/6 with EDP of 15 Aortic pressure 155/76 Coronary findings Left main is a medium caliber vessel with no significant disease Circumflex is a medium caliber vessel with proximal 30% stenosis, OM 2 is seen via saphenous vein graft injection with mild to moderate diffuse disease LAD is a medium caliber vessel with proximal 40% diffuse stenosis,, mid 20% diffuse stenosis RCA is occluded ostially and seen via the saphenous vein graft injection the mid to distal segment with mild to moderate diffuse disease Saphenous vein graft sequential to OM and RCA is patent with no significant disease Description of procedure Patient brought to the Channel Manager after informed consent. Patient prepped and draped as per protocol. Right femoral artery access was obtained with ultrasound guidance and a 5 Malagasy sheath was placed. A 5 Malagasy JL 4 diagnostic catheter was used in the angiogram of the left system via the left main. We next used a 5 Malagasy JR4 catheter to the left ventricle and pressure measurements were obtained as well as pullback. We next engaged the saphenous vein graft sequential to OM and RCA and angiogram was performed. We then engaged the RCA and angiogram was performed. There was no immediate complications. All catheters and wires removed. Contrast used 40 mL's Recommendation Aggressive medical management. Alex Huber DO Apr 12, 2018 14:39
--- NOTE | 2018-04-12 14:46 | CONS ---
Assessment/Plan Assessment/Plan Hospital Course (Demo Recall) Non-ST elevation myocardial infarction Preserved ejection fraction Acute kidney injury with history of CKD Hypertension Assessment/Plan (Daily) Patient status post left heart cath addition today with patent graft. Mild to moderate diffuse disease in vessels. We will continue aggressive medical management, would add Plavix, continue statin therapy, beta-phillip, blood p ressure control. Consultation Date/Type/Reason Admit Date/Time Apr 09, 2018 at 01:12 Initial Consult Date 04/09/18 Type of Consult Cardiology Requesting Provider: CASSIE HENRY MD Date/Time of Note DATE: 04/12/18 TIME: 14:43 24 HR Interval Summary Free Text/Dictation Denies chest pain, shortness of breath or palpitations Exam/Review of Systems Vital Signs Vitals Vital Signs Date Temp Pulse Resp B/P (MAP) Pulse Ox O2 O2 Flow FiO2 Time Delivery Rate 04/12/18 68 12:10 04/12/18 98.0 18 174/85 98 11:05 (114) 04/12/18 Room Air 04:16 Intake and Output 04/11/18 04/11/18 04/12/18 1515:00 23:00 07:00 IntakeIntake Total 21 ml 818 ml 500 ml BalanceBalance 21 ml 818 ml 500 ml Exam Exam No apparent distress Constitutional: alert, oriented Head: normocephalic Respiratory: other (Coarse breath sounds bilaterally, no wheezing) Cardiovascular: regular rate and rhythm, other (S1-S2 heard) Gastrointestinal: soft, non-tender, bowel sounds Extremities: other (No significant edema) Labs Result Diagram: 04/12/18 0555 04/12/18 0555 Results 24hrs Laboratory Tests Test 04/11/18 16:23 04/11/18 17:04 04/11/18 20:09 04/11/18 22:31 Activated 64.3 H 60.4 H Partial Thromboplast Time Bedside Glucose 124 126 Test 04/12/18 01:05 04/12/18 05:30 04/12/18 05:55 04/12/18 08:03 Bedside Glucose 166 117 87 White Blood Count 6.3 Red Blood Count 4.13 L Hemoglobin 11.8 L Hematocrit 35.1 L Mean Corpuscular 85.0 Volume Mean Corpuscular 28.6 L Hemoglobin Mean Corpuscular 33.6 Hemoglobin Concent Red Cell 12.8 Distribution Width Platelet Count 203 Mean Platelet Volume 9.8 Immature 0.800 H Granulocytes % Neutrophils % 52.8 Lymphocytes % 33.1 Monocytes % 9.9 Eosinophils % 2.9 Basophils % 0.5 Nucleated Red Blood 0.0 Cells % Immature 0.050 H Granulocytes # Neutrophils # 3.3 Lymphocytes # 2.1 Monocytes # 0.6 Eosinophils # 0.2 Basophils # 0.0 Nucleated Red Blood 0.0 Cells # Sodium Level 141 Potassium Level 4.3 Chloride Level 107 Carbon Dioxide Level 21 Anion Gap 13 Blood Urea Nitrogen 35 H Creatinine 2.11 H Est Glomerular 32 L Filtrat Rate mL/min Glucose Level 113 # Calcium Level 8.6 Phosphorus Level 4.2 Magnesium Level 1.7 Test 04/12/18 10:35 04/12/18 12:13 Bedside Glucose 72 87 Medications Medications Current Medications Amlodipine Besylate (Norvasc) 10 mg DAILY PO Last administered on 04/12/18at 08:20; Admin Dose 10 MG; Start 04/09/18 at 09:00 Aspirin (Halfprin) 81 mg DAILY PO Last administered on 04/12/18at 08:20; Admin Dose 81 MG; Start 04/09/18 at 09:00 Atorvastatin Calcium (Lipitor) 40 mg DAILY PO Last administered on 04/12/18at 08:20; Admin Dose 40 MG; Start 04/09/18 at 09:00 Miscellaneous Information 1 ea NOTE XX ; Start 04/09/18 at 02:30 Glucose (Glutose) 15 gm Q15M PRN PO DECREASED GLUCOSE; Start 04/09/18 at 02:30 Glucose (Glutose) 22.5 gm Q15M PRN PO DECREASED GLUCOSE; Start 04/09/18 at 02:30 Dextrose (D50w Syringe) 25 ml Q15M PRN IV DECREASED GLUCOSE; Start 04/09/18 at 02:30 Dextrose (D50w Syringe) 50 ml Q15M PRN IV DECREASED GLUCOSE; Start 04/09/18 at 02:30 Glucagon (Glucagen) 1 mg Q15M PRN IM DECREASED GLUCOSE; Start 04/09/18 at 02:30 Glucose (Glutose) 15 gm Q15M PRN BUCCAL DECREASED GLUCOSE; Start 04/09/18 at 02:30 Pantoprazole (Protonix Tab) 40 mg DAILY@06 PO Last administered on 04/12/18 05:30; Admin Dose 40 MG; Start 04/09/18 at 06:00 Heparin Sodium (Porcine) (Heparin (1000 Units/ml)) 4,000 unit PRN PRN IV PENDING LAB VALUE; Start 04/09/18 at 13:00 Lorazepam (Ativan) 1 mg Q6H PRN PO ANXIETY; Start 04/09/18 at 07:00 Clonidine (Catapres) 0.1 mg Q6H PRN PO ELEVATED BLOOD PRESSURE Last administered on 04/12/18 11:20; Admin Dose 0.1 MG; Start 04/09/18 at 10:00 Insulin Aspart (Novolog Insulin Pen) 10 unit WITH MEALS SC Last administered on 04/11/18 17:12; Admin Dose 10 UNIT; Start 04/09/18 at 14:00 Diphenhydramine HCl (Benadryl) 25 mg Q6H PRN PO ITCHING Last administered on 04/10/18 09:54; Admin Dose 25 MG; Start 04/09/18 at 20:30 Carvedilol (Coreg) 12.5 mg BID PO Last administered on 04/12/18 08:20; Admin Dose 12.5 MG; Start 04/10/18 at 21:00 Insulin Glargine (Lantus) 20 units DAILY SC Last administered on 04/12/18 08:30; Admin Dose 20 UNITS; Start 04/11/18 at 09:00 Acetaminophen (Tylenol Tab) 650 mg Q4H PRN PO MILD PAIN(1-3)OR ELEVATED TEMP; Start 04/10/18 at 16:30 Acetylcysteine (Nac) 600 mg BID PO Last administered on 04/12/18 08:20; Admin Dose 600 MG; Start 04/11/18 at 09:00 Insulin Aspart (Novolog Insulin Pen) NOVOLOG *MILD* ALGORI... Q4 SC Last administered on 04/12/18 01:12; Admin Dose 1 UNIT; Start 04/12/18 at 01:00 Sodium Chloride 1,000 ml @ 75 mls/hr [id number] ONCE IV Last administered on 04/12/18 09:37; Admin Dose 75 MLS/HR; Start 04/12/18 at 08:30; Stop 04/12/18 at 21:49 Dextrose/Sodium Chloride 500 ml @ 20 mls/hr Q24H IV Last administered on 04/12/18at 09:38; Admin Dose 20 MLS/HR; Start 04/12/18 at 09:00 Alex Huber DO Apr 12, 2018 14:46
--- NOTE | 2018-04-12 15:05 | NUR ---
Patient arrived in PACU. Vital signs stable. Denies pain, nausea and MARIFER. Tegaderm and gauze dsg to right groin is clean, dry and intact. Puncture site is soft and no hematoma noted. Right DP pulse and right PT is weak and palpable.
--- NOTE | 2018-04-12 16:17 | NUR ---
PACU Time: 1505 to 1617
--- NOTE | 2018-04-12 16:41 | PN ---
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 Titration of insulin while in house per endocrine Prophylaxis: Heparin Dc home when stable Result Diagram: 04/12/18 0555 04/12/18 0555 Results 24hrs Laboratory Tests Test 04/11/18 17:04 04/11/18 20:09 04/11/18 22:31 04/12/18 01:05 Bedside Glucose 124 126 166 Activated 60.4 H Partial Thromboplast Time Test 04/12/18 05:30 04/12/18 05:55 04/12/18 08:03 04/12/18 10:35 Bedside Glucose 117 87 72 White Blood Count 6.3 Red Blood Count 4.13 L Hemoglobin 11.8 L Hematocrit 35.1 L Mean Corpuscular 85.0 Volume Mean Corpuscular 28.6 L Hemoglobin Mean Corpuscular 33.6 Hemoglobin Concent Red Cell 12.8 Distribution Width Platelet Count 203 Mean Platelet Volume 9.8 Immature 0.800 H Granulocytes % Neutrophils % 52.8 Lymphocytes % 33.1 Monocytes % 9.9 Eosinophils % 2.9 Basophils % 0.5 Nucleated Red Blood 0.0 Cells % Immature 0.050 H Granulocytes # Neutrophils # 3.3 Lymphocytes # 2.1 Monocytes # 0.6 Eosinophils # 0.2 Basophils # 0.0 Nucleated Red Blood 0.0 Cells # Sodium Level 141 Potassium Level 4.3 Chloride Level 107 Carbon Dioxide Level 21 Anion Gap 13 Blood Urea Nitrogen 35 H Creatinine 2.11 H Est Glomerular 32 L Filtrat Rate mL/min Glucose Level 113 # Calcium Level 8.6 Phosphorus Level 4.2 Magnesium Level 1.7 Test 04/12/18 12:13 Bedside Glucose 87 Subjective 24 Hr Interval Summary Constitutional: no complaints Exam/Review of Systems Exam Vitals Vital Signs Date Temp Pulse Resp B/P (MAP) Pulse Ox O2 O2 Flow FiO2 Time Delivery Rate 04/12/18 68 16:08 04/12/18 98.0 18 174/85 98 11:05 (114) 04/12/18 Room Air 04:16 Intake and Output 04/11/18 04/11/18 04/12/18 1515:00 23:00 07:00 IntakeIntake Total 21 ml 818 ml 500 ml BalanceBalance 21 ml 818 ml 500 ml Constitutional: alert Respiratory: clear to auscultation Cardiovascular: regular rate and rhythm Gastrointestinal: soft; No distended Musculoskeletal: nl extremities to inspection Results Results 24hrs Laboratory Tests Test 04/11/18 17:04 04/11/18 20:09 04/11/18 22:31 04/12/18 01:05 Bedside Glucose 124 126 166 Activated 60.4 H Partial Thromboplast Time Test 04/12/18 05:30 04/12/18 05:55 04/12/18 08:03 04/12/18 10:35 Bedside Glucose 117 87 72 White Blood Count 6.3 Red Blood Count 4.13 L Hemoglobin 11.8 L Hematocrit 35.1 L Mean Corpuscular 85.0 Volume Mean Corpuscular 28.6 L Hemoglobin Mean Corpuscular 33.6 Hemoglobin Concent Red Cell 12.8 Distribution Width Platelet Count 203 Mean Platelet Volume 9.8 Immature 0.800 H Granulocytes % Neutrophils % 52.8 Lymphocytes % 33.1 Monocytes % 9.9 Eosinophils % 2.9 Basophils % 0.5 Nucleated Red Blood 0.0 Cells % Immature 0.050 H Granulocytes # Neutrophils # 3.3 Lymphocytes # 2.1 Monocytes # 0.6 Eosinophils # 0.2 Basophils # 0.0 Nucleated Red Blood 0.0 Cells # Sodium Level 141 Potassium Level 4.3 Chloride Level 107 Carbon Dioxide Level 21 Anion Gap 13 Blood Urea Nitrogen 35 H Creatinine 2.11 H Est Glomerular 32 L Filtrat Rate mL/min Glucose Level 113 # Calcium Level 8.6 Phosphorus Level 4.2 Magnesium Level 1.7 Test 04/12/18 12:13 Bedside Glucose 87 Medications Medication Current Medications Amlodipine Besylate (Norvasc) 10 mg DAILY PO Last administered on 04/12/18at 08:20; Admin Dose 10 MG; Start 1/26/19 at 09:00 Aspirin (Halfprin) 81 mg DAILY PO Last administered on 04/12/18at 08:20; Admin Dose 81 MG; Start 04/09/18 at 09:00 Atorvastatin Calcium (Lipitor) 40 mg DAILY PO Last administered on 04/12/18at 08:20; Admin Dose 40 MG; Start 04/09/18 at 09:00 Miscellaneous Information 1 ea NOTE XX ; Start 04/09/18 at 02:30 Glucose (Glutose) 15 gm Q15M PRN PO DECREASED GLUCOSE; Start 04/09/18 at 02:30 Glucose (Glutose) 22.5 gm Q15M PRN PO DECREASED GLUCOSE; Start 04/09/18 at 02:30 Dextrose (D50w Syringe) 25 ml Q15M PRN IV DECREASED GLUCOSE; Start 04/09/18 at 02:30 Dextrose (D50w Syringe) 50 ml Q15M PRN IV DECREASED GLUCOSE; Start 04/09/18 at 02:30 Glucagon (Glucagen) 1 mg Q15M PRN IM DECREASED GLUCOSE; Start 04/09/18 at 02:30 Glucose (Glutose) 15 gm Q15M PRN BUCCAL DECREASED GLUCOSE; Start 04/09/18 at 02:30 Pantoprazole (Protonix Tab) 40 mg DAILY@06 PO Last administered on 04/12/18at 05:30; Admin Dose 40 MG; Start 04/09/18 at 06:00 Heparin Sodium (Porcine) (Heparin (1000 Units/ml)) 4,000 unit PRN PRN IV PENDING LAB VALUE; Start 04/09/18 at 13:00 Lorazepam (Ativan) 1 mg Q6H PRN PO ANXIETY; Start 04/09/18 at 07:00 Clonidine (Catapres) 0.1 mg Q6H PRN PO ELEVATED BLOOD PRESSURE Last administere d on 04/12/18at 11:20; Admin Dose 0.1 MG; Start 04/09/18 at 10:00 Insulin Aspart (Novolog Insulin Pen) 10 unit WITH MEALS SC Last administered on 04/11/18at 17:12; Admin Dose 10 UNIT; Start 04/09/18 at 14:00 Diphenhydramine HCl (Benadryl) 25 mg Q6H PRN PO ITCHING Last administered on 04/10/18at 09:54; Admin Dose 25 MG; Start 04/09/18 at 20:30 Carvedilol (Coreg) 12.5 mg BID PO Last administered on 04/12/18 08:20; Admin Dose 12.5 MG; Start 04/10/18 at 21:00 Insulin Glargine (Lantus) 20 units DAILY SC Last administered on 04/12/18 08:30; Admin Dose 20 UNITS; Start 04/11/18 at 09:00 Acetylcysteine (Nac) 600 mg BID PO Last administered on 04/12/18 08:20; Admin Dose 600 MG; Start 04/11/18 at 09:00 Insulin Aspart (Novolog Insulin Pen) NOVOLOG *MILD* ALGORI... Q4 SC Last administered on 04/12/18 01:12; Admin Dose 1 UNIT; Start 04/12/18 at 01:00 Dextrose/Sodium Chloride 500 ml @ 20 mls/hr Q24H IV Last administered on 04/12/18 09:38; Admin Dose 20 MLS/HR; Start 04/12/18 at 09:00 Miscellaneous Information (* Miscellaneous Pharmacy Order) HOLD all METFORMIN ... ONCE XX ; Start 04/12/18 at 14:30; Stop 04/14/18 at 14:29 Acetaminophen (Tylenol Tab) 650 mg Q4H PRN PO NON-CARDIAC PAIN LEVEL (1-3); Start 04/12/18 at 14:30 Al Hydrox/Mg Hydrox/Simethicone (Mag-Al Plus) 30 ml Q4H PRN PO GASTROINTESTINAL UPSET; Start 04/12/18 at 14:30 Ondansetron HCl (Zofran Inj) 4 mg Q4H PRN IV NAUSEA AND/OR VOMITING; Start 04/12/18 at 14:30 Sodium Chloride 1,000 ml @ 75 mls/hr [id number] IV ; Start 04/12/18 at 14:25; Stop 04/12/18 at 19:24 Clopidogrel Bisulfate (plaVIX) 75 mg DAILY PO ; Start 04/12/18 at 14:30 ALEX CASTRO Apr 12, 2018 16:41
[2018-04-12] MEDS: CLOPIDOGREL 75 MG TAB PO SCH (17:33)
--- NOTE | 2018-04-12 18:54 | CONS ---
Assessment/Plan Assessment/Plan Problems: (1) Uncontrolled type 2 diabetes mellitus Status: Chronic Comment: Overall improved controll of blood glucose readings on current dose of insulin. Noted excursion this afternoon. Will continue to monitor for now and make neccesary modifications if blood glucose levels continue to rise. Patient would be a good candidate for SGLT2 and GLP1 with reduction in insulin, but this can be addressed as an outpatient. Qualifiers: Glycemic state: with hyperglycemia Qualified Codes: E11.65 - Type 2 diabetes mellitus with hyperglycemia Consultation Date/Type/Reason Admit Date/Time Apr 09, 2018 at 01:12 Initial Consult Date 04/09/18 Type of Consult Endocrine Requesting Provider: CASSIE HENRY MD Date/Time of Note DATE: 04/12/18 TIME: 18:50 24 HR Interval Summary Free Text/Dictation S/P left heart catheterization today. Exam/Review of Systems Exam Vitals Vital Signs Date Temp Pulse Resp B/P (MAP) Pulse Ox O2 O2 Flow FiO2 Time Delivery Rate 04/12/18 68 16:08 04/12/18 98.0 18 174/85 98 11:05 (114) 04/12/18 Room Air 04:16 Intake and Output 04/11/18 04/11/18 04/12/18 1515:00 23:00 07:00 IntakeIntake Total 21 ml 818 ml 500 ml BalanceBalance 21 ml 818 ml 500 ml Additional Comments POC glucose reviewed Results Result Diagram: 04/12/18 0555 04/12/18 0555 Results 24hrs Laboratory Tests Test 04/11/18 20:09 04/11/18 22:31 04/12/18 01:05 04/12/18 05:30 Bedside Glucose 126 166 117 Activated 60.4 H Partial Thromboplast Time Test 04/12/18 05:55 04/12/18 08:03 04/12/18 10:35 04/12/18 12:13 White Blood Count 6.3 Red Blood Count 4.13 L Hemoglobin 11.8 L Hematocrit 35.1 L Mean Corpuscular 85.0 Volume Mean Corpuscular 28.6 L Hemoglobin Mean Corpuscular 33.6 Hemoglobin Concent Red Cell 12.8 Distribution Width Platelet Count 203 Mean Platelet Volume 9.8 Immature 0.800 H Granulocytes % Neutrophils % 52.8 Lymphocytes % 33.1 Monocytes % 9.9 Eosinophils % 2.9 Basophils % 0.5 Nucleated Red Blood 0.0 Cells % Immature 0.050 H Granulocytes # Neutrophils # 3.3 Lymphocytes # 2.1 Monocytes # 0.6 Eosinophils # 0.2 Basophils # 0.0 Nucleated Red Blood 0.0 Cells # Sodium Level 141 Potassium Level 4.3 Chloride Level 107 Carbon Dioxide Level 21 Anion Gap 13 Blood Urea Nitrogen 35 H Creatinine 2.11 H Est Glomerular 32 L Filtrat Rate mL/min Glucose Level 113 # Calcium Level 8.6 Phosphorus Level 4.2 Magnesium Level 1.7 Bedside Glucose 87 72 87 Test 04/12/18 17:31 Bedside Glucose 204 Medications Medication Current Medications Amlodipine Besylate (Norvasc) 10 mg DAILY PO Last administered on 04/12/18at 08:20; Admin Dose 10 MG; Start 04/09/18 at 09:00 Aspirin (Halfprin) 81 mg DAILY PO Last administered on 04/12/18at 08:20; Admin Dose 81 MG; Start 04/09/18 at 09:00 Atorvastatin Calcium (Lipitor) 40 mg DAILY PO Last administered on 04/12/18at 08:20; Admin Dose 40 MG; Start 04/09/18 at 09:00 Miscellaneous Information 1 ea NOTE XX ; Start 04/09/18 at 02:30 Glucose (Glutose) 15 gm Q15M PRN PO DECREASED GLUCOSE; Start 04/09/18 at 02:30 Glucose (Glutose) 22.5 gm Q15M PRN PO DECREASED GLUCOSE; Start 04/09/18 at 02:30 Dextrose (D50w Syringe) 25 ml Q15M PRN IV DECREASED GLUCOSE; Start 04/09/18 at 02:30 Dextrose (D50w Syringe) 50 ml Q15M PRN IV DECREASED GLUCOSE; Start 04/09/18 at 02:30 Glucagon (Glucagen) 1 mg Q15M PRN IM DECREASED GLUCOSE; Start 04/09/18 at 02:30 Glucose (Glutose) 15 gm Q15M PRN BUCCAL DECREASED GLUCOSE; Start 04/09/18 at 02:30 Pantoprazole (Protonix Tab) 40 mg DAILY@06 PO Last administered on 04/12/18at 05:30; Admin Dose 40 MG; Start 04/09/18 at 06:00 Heparin Sodium (Porcine) (Heparin (1000 Units/ml)) 4,000 unit PRN PRN IV PENDING LAB VALUE; Start 04/09/18 at 13:00 Lorazepam (Ativan) 1 mg Q6H PRN PO ANXIETY; Start 04/09/18 at 07:00 Clonidine (Catapres) 0.1 mg Q6H PRN PO ELEVATED BLOOD PRESSURE Last administered on 04/12/18at 11:20; Admin Dose 0.1 MG; Start 04/09/18 at 10:00 Insulin Aspart (Novolog Insulin Pen) 10 unit WITH MEALS SC Last administered on 04/12/18 17:40; Admin Dose 10 UNIT; Start 04/09/18 at 14:00 Diphenhydramine HCl (Benadryl) 25 mg Q6H PRN PO ITCHING Last administered on 04/10/18 09:54; Admin Dose 25 MG; Start 04/09/18 at 20:30 Carvedilol (Coreg) 12.5 mg BID PO Last administered on 04/12/18 08:20; Admin Dose 12.5 MG; Start 04/10/18 at 21:00 Insulin Glargine (Lantus) 20 units DAILY SC Last administered on 04/12/18 08:30; Admin Dose 20 UNITS; Start 04/11/18 at 09:00 Acetylcysteine (Nac) 600 mg BID PO Last administered on 04/12/18 08:20; Admin Dose 600 MG; Start 04/11/18 at 09:00 Insulin Aspart (Novolog Insulin Pen) NOVOLOG *MILD* ALGORI... Q4 SC Last administered on 04/12/18 17:40; Admin Dose 2 UNIT; Start 04/12/18 at 01:00 Dextrose/Sodium Chloride 500 ml @ 20 mls/hr Q24H IV Last administered on 04/12/18at 09:38; Admin Dose 20 MLS/HR; Start 04/12/18 at 09:00 Miscellaneous Information (* Miscellaneous Pharmacy Order) HOLD all METFORMIN ... ONCE XX ; Start 04/12/18 at 14:30; Stop 04/14/18 at 14:29 Acetaminophen (Tylenol Tab) 650 mg Q4H PRN PO NON-CARDIAC PAIN LEVEL (1-3); Start 04/12/18 at 14:30 Al Hydrox/Mg Hydrox/Simethicone (Mag-Al Plus) 30 ml Q4H PRN PO GASTROINTESTINAL UPSET; Start 04/12/18 at 14:30 Ondansetron HCl (Zofran Inj) 4 mg Q4H PRN IV NAUSEA AND/OR VOMITING; Start 04/12/18 at 14:30 Sodium Chloride 1,000 ml @ 75 mls/hr [id number] IV Last administered on 04/12/18at 17:33; Admin Dose 75 MLS/HR; Start 04/12/18 at 14:25; Stop 04/12/18 at 19:24 Clopidogrel Bisulfate (plaVIX) 75 mg DAILY PO Last administered on 04/12/18at 17:33; Admin Dose 75 MG; Start 04/12/18 at 14:30 PARISH MARTINEZ MD Apr 12, 2018 18:54
--- NOTE | 2018-04-12 19:12 | NUR ---
EOSS- Pt A/O x4, on RA, no distress noted. S/P L Heart cath done today, went through R Groin, Dressing dry and intact. No complaints of pain or discomfort. Pt start back on diet, Will continue to monitor pt and endorse care to nightshift
[2018-04-13] VITALS (8 sets, daily range): BP systolic 155–169; BP diastolic 74–80; PULSE 67–80; RESP 18–20
[2018-04-13] MEDS: INSULIN ASPART [NOVOLOG] 3 ML PEN SC SCH ×6 (02:00→12:25)
[2018-04-13] MEDS: PANTOPRAZOLE (EC) 40 MG TAB PO SCH (05:48)
--- NOTE | 2018-04-13 06:54 | NUR ---
EOSS; awake alert on bed resting s/o post heart cath rt groin intact no any bleeding no hematoma noted , off bedrest able to ambulate to bathroom family at bedside no any distress noted.
[2018-04-13] MEDS: ASPIRIN (EC) 81 MG TAB PO SCH (08:14)
[2018-04-13] MEDS: CLOPIDOGREL 75 MG TAB PO SCH (08:14)
[2018-04-13] MEDS: ACETYLCYSTEINE 600 MG CAP PO SCH (08:15)
[2018-04-13] MEDS: AMLODIPINE 10 MG TAB PO SCH (08:15)
[2018-04-13] MEDS: ATORVASTATIN 40 MG TAB PO SCH (08:15)
[2018-04-13] MEDS: DEXTROSE 5%-0.45% NACL 500 ML IV SCH (08:16)
[2018-04-13] MEDS: INSULIN GLARGINE [LANTus] (100 UNITS/ML) SYG SC SCH (08:23)
[2018-04-13] MEDS ORDERED: MAGNESIUM SULFATE 2 GM/50 ML 50 ML IVPB ONE (09:00)
--- NOTE | 2018-04-13 09:51 | PN ---
DATE: 04/13/2018 SUBJECTIVE: The patient is stable, had a cardiac catheterization yesterday without any complications . No other events noted. OBJECTIVE: VITAL SIGNS: Blood pressure is 164/80, pulse 67, respirations 20, temperature 98.2. HEENT: Head is normocephalic. NECK: Supple. HEART: Regular rate. LUNGS: Show diminished breath sounds at the base. ABDOMEN: Soft, nontender to palpation without rebound or guarding. EXTREMITIES: Negative for clubbing, cyanosis, no edema. DERMATOLOGIC: No rashes. MUSCULOSKELETAL: No joint effusion. NEUROLOGIC: No change in exam. MEDICATIONS: The patient medications have been reviewed. LABORATORY DATA: Shows sodium 140, potassium 4.6, chloride 107, BUN 36, creatinine 1.95, magnesium 1 .6. The patient's CBC was reviewed. ASSESSMENT AND PLAN: 1. Nonoliguric acute changes on top of chronic kidney disease with unknown baseline creatinine. Veena ology of acute kidney injury is secondary to hemodynamics. The patient's renal function has improved . We will continue current treatment plans, supportive care, renally dose all medicines. We will mo nitor for any signs of contrast-associated nephropathy, although low likelihood given minimal contras t use. 2. Hypomagnesemia. We will replete with magnesium sulfate. 3. Anemia. Monitor hemoglobin and hematocrit levels. 4. Mineral bone disorder, monitor calcium and phosphorus levels. 5. Non-ST elevation myocardial infarction. The patient is status post cardiac catheterization. Con tinue medical management. Follow up with Cardiology. 6. Hypertension. Continue current blood pressure regimen. 7. Diabetes. Continue current insulin regimen. 8. History of coronary artery disease, status post coronary artery bypass graft. 9. Dyslipidemia. Continue statin therapy. Dictated By: JEWELL CHENEY DO NR/NTS Conf#: [id number] DID#: [id number] CC: TONY PONCE MD; ALEX CASTRO MD; MEHRAN SNIDER MD;*EndCC*
[2018-04-13] MEDS ORDERED: CLOP75TA28 PO (10:33)
[2018-04-13] MEDS ORDERED: CARV12.579 PO (10:33)
--- NOTE | 2018-04-13 10:34 | PDOCDIS ---
Discharge Instructions CONDITION [id number] Patient Condition: Salpe3e Good HOME CARE INSTRUCTIONS: [id number] Diet Instructions: [id number] Modified Fat ACTIVITY: [id number] Activity Restrictions: [id number] No Restrictions FOLLOW UP/APPOINTMENTS Follow-up Plan FOLLOW UP WITH YOUR PCP IN 1-2 WEEKS, FOLLOW UP WITH YOUR FRICKERTRON CHECKER ALEX CASTRO Apr 13, 2018 10:34
[2018-04-13] MEDS ORDERED: ISOSORBIDE MONONITRATE(SR)30 MG TAB PO SCH (11:30)
--- NOTE | 2018-04-13 11:30 | CONS ---
Assessment/Plan Assessment/Plan Hospital Course (Demo Recall) Non-ST elevation myocardial infarction Preserved ejection fraction Acute kidney injury with history of CKD Hypertension Assessment/Plan (Daily) -Denies further chest pain or shortness of breath. -Blood pressure remains elevated, would start imdur -Renal function remained stable -DC planning Consultation Date/Type/Reason Admit Date/Time Apr 09, 2018 at 01:12 Initial Consult Date 04/09/18 Type of Consult Cardiology Requesting Provider: CASSIE HENRY MD Date/Time of Note DATE: 04/13/18 TIME: 11:26 24 HR Interval Summary Free Text/Dictation Denies chest pain, shortness of breath or palpitations. Overall feeling better Exam/Review of Systems Vital Signs Vitals Vital Signs Date Temp Pulse Resp B/P (MAP) Pulse Ox O2 O2 Flow FiO2 Time Delivery Rate 04/13/18 67 08:17 04/13/18 98.2 20 164/80 98 07:28 (108) 04/12/18 Room Air 15:57 Intake and Output 04/12/18 04/12/18 04/13/18 1515:00 23:00 07:00 IntakeIntake Total 600 ml 300 ml BalanceBalance 600 ml 300 ml Exam Exam No apparent distress Constitutional: alert, oriented Head: normocephalic Respiratory: clear to auscultation, normal air movement Cardiovascular: regular rate and rhythm, other (S1-S2 heard) Gastrointestinal: soft, non-tender, bowel sounds Extremities: other (No significant edema, right groin is soft, no hematoma) Labs Result Diagram: 04/13/18 0601 04/13/18 0601 Results 24hrs Laboratory Tests Test 04/12/18 12:13 04/12/18 17:31 04/12/18 20:50 04/13/18 02:13 Bedside Glucose 87 204 292 H 166 Test 04/13/18 05:44 04/13/18 06:01 04/13/18 08:13 Bedside Glucose 121 114 White Blood Count 7.1 Red Blood Count 4.01 L Hemoglobin 11.3 L Hematocrit 33.8 L Mean Corpuscular 84.3 Volume Mean Corpuscular 28.2 L Hemoglobin Mean Corpuscular 33.4 Hemoglobin Concent Red Cell 12.7 Distribution Width Platelet Count 192 Mean Platelet Volume 9.7 Immature 0.700 H Granulocytes % Neutrophils % 61.7 Lymphocytes % 26.2 Monocytes % 8.7 Eosinophils % 2.4 Basophils % 0.3 Nucleated Red Blood 0.0 Cells % Immature 0.050 H Granulocytes # Neutrophils # 4.4 Lymphocytes # 1.9 Monocytes # 0.6 Eosinophils # 0.2 Basophils # 0.0 Nucleated Red Blood 0.0 Cells # Sodium Level 140 Potassium Level 4.6 Chloride Level 107 Carbon Dioxide Level 20 L Anion Gap 13 Blood Urea Nitrogen 36 H Creatinine 1.95 H Est Glomerular 35 L Filtrat Rate mL/min Glucose Level 123 Calcium Level 8.2 L Phosphorus Level 3.6 Magnesium Level 1.6 L Medications Medications Current Medications Amlodipine Besylate (Norvasc) 10 mg DAILY PO Last administered on 04/13/18at 08:15; Admin Dose 10 MG; Start 04/09/18 at 09:00 Aspirin (Halfprin) 81 mg DAILY PO Last administered on 04/13/18at 08:14; Admin Dose 81 MG; Start 04/09/18 at 09:00 Atorvastatin Calcium (Lipitor) 40 mg DAILY PO Last administered on 04/13/18at 08:15; Admin Dose 40 MG; Start 04/09/18 at 09:00 Miscellaneous Information 1 ea NOTE XX ; Start 04/09/18 at 02:30 Glucose (Glutose) 15 gm Q15M PRN PO DECREASED GLUCOSE; Start 04/09/18 at 02:30 Glucose (Glutose) 22.5 gm Q15M PRN PO DECREASED GLUCOSE; Start 04/09/18 at 02:30 Dextrose (D50w Syringe) 25 ml Q15M PRN IV DECREASED GLUCOSE; Start 04/09/18 at 02:30 Dextrose (D50w Syringe) 50 ml Q15M PRN IV DECREASED GLUCOSE; Start 04/09/18 at 02:30 Glucagon (Glucagen) 1 mg Q15M PRN IM DECREASED GLUCOSE; Start 04/09/18 at 02:30 Glucose (Glutose) 15 gm Q15M PRN BUCCAL DECREASED GLUCOSE; Start 04/09/18 at 02:30 Pantoprazole (Protonix Tab) 40 mg DAILY@06 PO Last administered on 04/13/18at 05:48; Admin Dose 40 MG; Start 04/09/18 at 06:00 Heparin Sodium (Porcine) (Heparin (1000 Units/ml)) 4,000 unit PRN PRN IV PENDING LAB VALUE; Start 04/09/18 at 13:00 Lorazepam (Ativan) 1 mg Q6H PRN PO ANXIETY; Start 04/09/18 at 07:00 Clonidine (Catapres) 0.1 mg Q6H PRN PO ELEVATED BLOOD PRESSURE Last administered on 04/12/18 20:51; Admin Dose 0.1 MG; Start 04/09/18 at 10:00 Insulin Aspart (Novolog Insulin Pen) 10 unit WITH MEALS SC Last administered on 04/13/18 08:28; Admin Dose 10 UNIT; Start 04/09/18 at 14:00 Diphenhydramine HCl (Benadryl) 25 mg Q6H PRN PO ITCHING Last administered on 04/10/18 09:54; Admin Dose 25 MG; Start 04/09/18 at 20:30 Carvedilol (Coreg) 12.5 mg BID PO Last administered on 04/13/18 08:15; Admin Dose 12.5 MG; Start 04/10/18 at 21:00 Insulin Glargine (Lantus) 20 units DAILY SC Last administered on 04/13/18 08:23; Admin Dose 20 UNITS; Start 04/11/18 at 09:00 Insulin Aspart (Novolog Insulin Pen) NOVOLOG *MILD* ALGORI... Q4 SC Last administered on 04/12/18 20:58; Admin Dose 4 UNIT; Start 04/12/18 at 01:00 Miscellaneous Information (* Miscellaneous Pharmacy Order) HOLD all METFORMIN ... ONCE XX ; Start 04/12/18 at 14:30; Stop 04/14/18 at 14:29 Acetaminophen (Tylenol Tab) 650 mg Q4H PRN PO NON-CARDIAC PAIN LEVEL (1-3) Last administered on 04/13/18 05:46; Admin Dose 650 MG; Start 04/12/18 at 14:30 Al Hydrox/Mg Hydrox/Simethicone (Mag-Al Plus) 30 ml Q4H PRN PO GASTROINTESTINAL UPSET; Start 04/12/18 at 14:30 Ondansetron HCl (Zofran Inj) 4 mg Q4H PRN IV NAUSEA AND/OR VOMITING; Start 04/12/18 at 14:30 Clopidogrel Bisulfate (plaVIX) 75 mg DAILY PO Last administered on 1/30/19at 08:14; Admin Dose 75 MG; Start 04/12/18 at 14:30 Alex Huber DO Apr 13, 2018 11:30
--- NOTE | 2018-04-13 16:19 | DS ---
Date/Time of Note Date/Time of Note DATE: 04/13/18 TIME: 16:13 Discharge Summary Admission/Discharge Info Admit Date/Time Apr 09, 2018 at 01:12 Discharge Date/Time April 13, 2017 Discharge Diagnosis 1. NSTEMI: -Status post heart cath with patent graft, mild to moderate diffuse disease in vessels -Continue medical therapy, have added Plavix and increased dose of Coreg, continue aspirin and statin 2. Hypertension: -Continue home meds, have increased Coreg dose 3. CKD III: - stable 4. DMII: - reports adherence to lantus 40 units BID, however A1C is 9. Titration of insulin while in house per endocrine, outpatient follow-up Patient Condition: Good Hospital Course Patient is a 62 yo male with CAD h/o CABG, DMII, CKD II, hypertension who presents with NSTEMI. Patient had a cath that did show patent graft as well as mild to moderate diffuse disease of the vessels, patient was stable for DC. Patient was prescribed Plavix and Coreg dose was increased upon DC. On the day of discharge patient's vitals, labs and physical exam are stable, patient has no acute complaints questions are answered. Home Meds Active Scripts Carvedilol* (Carvedilol*) 12.5 Mg Tablet, 12.5 MG PO BID, #60 TAB Prov:ALEX CASTRO 04/13/18 Clopidogrel Bisulfate (Clopidogrel) 75 Mg Tablet, 75 MG PO DAILY, #60 TAB Prov:ALEX CASTRO 04/13/18 Amlodipine Besylate* (Norvasc*) 10 Mg Tablet, 10 MG PO DAILY, #30 TAB Prov:BG OLIVEIRA DO 04/07/18 Prednisone* (Prednisone*) 20 Mg Tab, 60 MG PO DAILY for 4 Days, TAB Prov:BG OLIVEIRA DO 04/07/18 Amlodipine Besylate* (Amlodipine Besylate*) 10 Mg Tablet, 10 MG PO DAILY, #60 TAB Prov:ALEX CASTRO 05/02/16 Nitroglycerin* (Nitroglycerin* SL) 0.4 Mg Tab.subl, 0.4 MG SL Q5MIN PRN for CHEST PAIN, #30 BOTTLE Prov:GONZALEZ PEÑA 03/22/14 Reported Medications Lorazepam* (Lorazepam*) 1 Mg Tablet, 1 MG PO Q6 PRN for ANXIETY, #60 TAB 04/07/18 Clonidine Hcl* (Clonidine Hcl*) 0.1 Mg Tab, 0.1 MG PO Q8, TAB 04/07/18 Glimepiride* (Glimepiride*) 4 Mg Tablet, 4 MG PO WITH BREAKFAST DINNE, TAB 04/07/18 Lisinopril* (Lisinopril*) 2.5 Mg Tablet, 2.5 MG PO DAILY, #30 TAB 04/07/18 Omeprazole* (Omeprazole*) 40 Mg Capsule.dr, 40 MG PO DAILY, #30 CAP 02/23/17 Insulin Lispro (Humalog Kwikpen) 200 Unit/1 Ml Insuln.pen, 5 UNIT SQ AC MEALS, EA 02/23/17 Insulin Glargine,Hum.rec.anlog (Toujeo Solostar) 300 Unit/1 Ml Insuln.pen, 50-60 UNIT SQ BID 02/23/17 Linagliptin (TRADJENTA) 5 Mg Tablet, 5 MG PO DAILY, TAB 04/29/16 Triamterene-HCTZ (Dyazide) 37.5 - 25 Mg Cap, 1 CAP PO DAILY, CAP 04/29/16 Atorvastatin* (Atorvastatin*) 40 Mg Tablet, 40 MG PO DAILY 06/10/13 Aspirin Ec (Aspir 81) 81 Mg Tablet.dr, 81 MG PO DAILY 06/10/13 Discontinued Reported Medications Carvedilol* (Carvedilol*) 6.25 Mg Tablet, 6.25 MG PO BID, #60 TAB 02/23/17 Benazepril Hcl* (Benazepril Hcl*) 10 Mg Tablet, 10 MG PO DAILY, #30 TAB 04/29/16 Lorazepam* (Lorazepam*) 0.5 Mg Tablet, 0.5-1 MG PO QID PRN for ANXIETY, TAB 03/20/14 Follow-up Plan FOLLOW UP WITH YOUR PCP IN 1-2 WEEKS, FOLLOW UP WITH YOUR HOSPITAL ADMITTING CLERK Primary Care Provider Not On Staff Doctor Time spent on discharge: > 30 minutes ALEX CASTRO Apr 13, 2018 16:19
--- NOTE | 2018-04-13 17:00 | NUR ---
DISCHARGE- Went over discharge packet and planning with pt. Pt to follow up outpt with PCP and [facility]. Went over new medications and side effects with pt. Prescriptions sent to pharmacy. IV DCed, pt refusing volunteer wheelchair discharge wants to ambulate out with family. Pt states no further questions.
--- NOTE | 2018-04-13 17:24 | CONS ---
Assessment/Plan Assessment/Plan Problems: (1) Diabetes mellitus, type 2 Status: Chronic Comment: Good glycemic control on current regimen. Kidney function improving which would allow patient to use an SGLT2. Given cardiac history continues to be good candidate for GLP1. This to be discussed and determined as an outpatient. Qualifiers: Diabetes mellitus complication status: with neurologic complications Diabetes mellitus complication detail: with unspecified neuropathy Consultation Date/Type/Reason Admit Date/Time Apr 09, 2018 at 01:12 Initial Consult Date 04/09/18 Type of Consult Endocrine Reason for Consultation Glucose management Requesting Provider: CASSIE HENRY MD Date/Time of Note DATE: 04/13/18 TIME: 17:19 Exam/Review of Systems Exam Vitals Vital Signs Date Temp Pulse Resp B/P (MAP) Pulse Ox O2 O2 Flow FiO2 Time Delivery Rate 04/13/18 80 16:11 04/13/18 98.0 20 169/74 99 15:30 (105) 04/12/18 Room Air 15:57 Intake and Output 04/12/18 04/12/18 04/13/18 1515:00 23:00 07:00 IntakeIntake Total 600 ml 300 ml BalanceBalance 600 ml 300 ml Additional Comments POC glucose Results Result Diagram: 04/13/18 0601 04/13/18 0601 Results 24hrs Laboratory Tests Test 04/12/18 17:31 04/12/18 20:50 04/13/18 02:13 04/13/18 05:44 Bedside Glucose 204 292 H 166 121 Test 04/13/18 06:01 04/13/18 08:13 04/13/18 11:59 White Blood Count 7.1 Red Blood Count 4.01 L Hemoglobin 11.3 L Hematocrit 33.8 L Mean Corpuscular 84.3 Volume Mean Corpuscular 28.2 L Hemoglobin Mean Corpuscular 33.4 Hemoglobin Concent Red Cell 12.7 Distribution Width Platelet Count 192 Mean Platelet Volume 9.7 Immature 0.700 H Granulocytes % Neutrophils % 61.7 Lymphocytes % 26.2 Monocytes % 8.7 Eosinophils % 2.4 Basophils % 0.3 Nucleated Red Blood 0.0 Cells % Immature 0.050 H Granulocytes # Neutrophils # 4.4 Lymphocytes # 1.9 Monocytes # 0.6 Eosinophils # 0.2 Basophils # 0.0 Nucleated Red Blood 0.0 Cells # Sodium Level 140 Potassium Level 4.6 Chloride Level 107 Carbon Dioxide Level 20 L Anion Gap 13 Blood Urea Nitrogen 36 H Creatinine 1.95 H Est Glomerular 35 L Filtrat Rate mL/min Glucose Level 123 Calcium Level 8.2 L Phosphorus Level 3.6 Magnesium Level 1.6 L Bedside Glucose 114 159 Medications Medication Current Medications Amlodipine Besylate (Norvasc) 10 mg DAILY PO Last administered on 04/13/18at 08:15; Admin Dose 10 MG; Start 04/09/18 at 09:00 Aspirin (Halfprin) 81 mg DAILY PO Last administered on 04/13/18at 08:14; Admin Dose 81 MG; Start 04/09/18 at 09:00 Atorvastatin Calcium (Lipitor) 40 mg DAILY PO Last administered on 04/13/18at 08:15; Admin Dose 40 MG; Start 04/09/18 at 09:00 Miscellaneous Information 1 ea NOTE XX ; Start 04/09/18 at 02:30 Glucose (Glutose) 15 gm Q15M PRN PO DECREASED GLUCOSE; Start 04/09/18 at 02:30 Glucose (Glutose) 22.5 gm Q15M PRN PO DECREASED GLUCOSE; Start 04/09/18 at 02:30 Dextrose (D50w Syringe) 25 ml Q15M PRN IV DECREASED GLUCOSE; Start 04/09/18 at 02:30 Dextrose (D50w Syringe) 50 ml Q15M PRN IV DECREASED GLUCOSE; Start 04/09/18 at 02:30 Glucagon (Glucagen) 1 mg Q15M PRN IM DECREASED GLUCOSE; Start 04/09/18 at 02:30 Glucose (Glutose) 15 gm Q15M PRN BUCCAL DECREASED GLUCOSE; Start 04/09/18 at 02:30 Pantoprazole (Protonix Tab) 40 mg DAILY@06 PO Last administered on 04/13/18at 05:48; Admin Dose 40 MG; Start 04/09/18 at 06:00 Heparin Sodium (Porcine) (Heparin (1000 Units/ml)) 4,000 unit PRN PRN IV PENDING LAB VALUE; Start 04/09/18 at 13:00 Lorazepam (Ativan) 1 mg Q6H PRN PO ANXIETY; Start 04/09/18 at 07:00 Clonidine (Catapres) 0.1 mg Q6H PRN PO ELEVATED BLOOD PRESSURE Last administered on 04/12/18at 20:51; Admin Dose 0.1 MG; Start 04/09/18 at 10:00 Insulin Aspart (Novolog Insulin Pen) 10 unit WITH MEALS SC Last administered on 04/13/18 12:25; Admin Dose 10 UNIT; Start 04/09/18 at 14:00 Diphenhydramine HCl (Benadryl) 25 mg Q6H PRN PO ITCHING Last administered on 04/10/18 09:54; Admin Dose 25 MG; Start 04/09/18 at 20:30 Carvedilol (Coreg) 12.5 mg BID PO Last administered on 04/13/18 08:15; Admin Dose 12.5 MG; Start 04/10/18 at 21:00 Insulin Glargine (Lantus) 20 units DAILY SC Last administered on 04/13/18 08:23; Admin Dose 20 UNITS; Start 04/11/18 at 09:00 Insulin Aspart (Novolog Insulin Pen) NOVOLOG *MILD* ALGORI... Q4 SC Last administered on 04/13/18 12:25; Admin Dose 1 UNIT; Start 04/12/18 at 01:00 Miscellaneous Information (* Miscellaneous Pharmacy Order) HOLD all METFORMIN ... ONCE XX ; Start 04/12/18 at 14:30; Stop 04/14/18 at 14:29 Acetaminophen (Tylenol Tab) 650 mg Q4H PRN PO NON-CARDIAC PAIN LEVEL (1-3) Last administered on 04/13/18 05:46; Admin Dose 650 MG; Start 04/12/18 at 14:30 Al Hydrox/Mg Hydrox/Simethicone (Mag-Al Plus) 30 ml Q4H PRN PO GASTROINTESTINAL UPSET; Start 04/12/18 at 14:30 Ondansetron HCl (Zofran Inj) 4 mg Q4H PRN IV NAUSEA AND/OR VOMITING; Start 04/12/18 at 14:30 Clopidogrel Bisulfate (plaVIX) 75 mg DAILY PO Last administered on 04/13/18 08:14; Admin Dose 75 MG; Start 04/12/18 at 14:30 Isosorbide Mononitrate (Imdur) 30 mg DAILY PO Last administered on 04/13/18 12:00; Admin Dose 30 MG; Start 04/13/18 at 11:30 PARISH MARTINEZ MD Apr 13, 2018 17:23
== END 2018-04-13 17:20 | disposition home or self-care (01) | DRG 281 ==
LOC: E/R 20:49 → ICU 04-09 01:12 → TEL 04-10 03:25
PROVIDERS: ADMIT Family Medicine; ATTEND Internal Medicine
PROC: B2031ZZ Plain Radiography of Multiple Coronary Artery Bypass Grafts using Low Osmolar Contrast (ICD-10-PCS; 2018-04-12)
PROC: B2011ZZ Plain Radiography of Multiple Coronary Arteries using Low Osmolar Contrast (ICD-10-PCS; 2018-04-12)
PROC: 4A023N7 Measurement of Cardiac Sampling and Pressure, Left Heart, Percutaneous Approach (ICD-10-PCS; principal; 2018-04-12 13:00)
DX: I21.4 Non-ST elevation (NSTEMI) myocardial infarction (principal); I16.1 Hypertensive emergency; N17.9 Acute kidney failure, unspecified; E87.2 Acidosis; I25.10 Atherosclerotic heart disease of native coronary artery without angina pectoris; I12.9 Hypertensive chronic kidney disease with stage 1 through stage 4 chronic kidney disease, or unspecified chronic kidney disease; N18.3 Chronic kidney disease, stage 3 (moderate); E11.65 Type 2 diabetes mellitus with hyperglycemia; E87.5 Hyperkalemia; Z95.1 Presence of aortocoronary bypass graft
CPT/HCPCS: 36415; 36600; 70450; 71045; 76775; 80048; 80053; 80061; 81001; 81003; 82043; 82550; 82553; 82570; 82803; 82962; 83036; 83735; 83880; 84100; 84155; 84300; 84443; 84484; 85025; 85610; 85730; 87081; 93005; 93306; 93459; 96374; 96375; C1894; J0360; J1170; J1200; J1644; J1815; J2250; J2270; J2405; J2930; J3010; J3475; J7030; J7040; Q9967